=== PATIENT | female | born 1950 | race Caucasian/White ===

== ENCOUNTER → 2020-08-15 12:56 | Outpatient (BNVA) | payer MEDICARE, MEDICAID, SELFPAY | PROVIDERS: PCP Internal Medicine; Referring Provider Internal Medicine; Visit Provider Urology | DX: Z76.89 Persons encountering health services in other specified circumstances (principal) | CPT/HCPCS: 52310; 99212 ==

== ENCOUNTER 2020-08-18 12:52 | Outpatient (RCR) | payer MEDICARE, MEDICAID, SELFPAY | END 2021-03-24 13:35 | disposition home or self-care (01) | LOC: HO.WCC 12:52 | PROVIDERS: PCP Internal Medicine; Visit Provider Physician Assistant | DX: L89.154 Pressure ulcer of sacral region, stage 4 (principal); G35 Multiple sclerosis; N18.9 Chronic kidney disease, unspecified; G62.9 Polyneuropathy, unspecified; G82.20 Paraplegia, unspecified | CPT/HCPCS: 11042; 11043; 15271; 97597; 97605; 99212; Q4196 ==

== ENCOUNTER 2020-08-27 11:19 | Outpatient (REF) | payer MEDICARE, MEDICAID, SELFPAY | END 2020-08-27 11:20 | disposition home or self-care (01) | LOC: HO.HVNA 11:19 | PROVIDERS: Visit Provider Internal Medicine | DX: Z20.828 Contact with and (suspected) exposure to other viral communicable diseases (principal) | CPT/HCPCS: 87635 ==

== ENCOUNTER 2020-09-23 15:37 | Outpatient (REF) | payer MEDICARE, MEDICAID, SELFPAY | END 2020-09-23 15:38 | disposition home or self-care (01) | LOC: HO.LNP 15:37 | PROVIDERS: Visit Provider Internal Medicine | DX: Z20.828 Contact with and (suspected) exposure to other viral communicable diseases (principal) | CPT/HCPCS: U0003 ==

== ENCOUNTER 2020-10-01 11:31 | Outpatient (REF) | payer MEDICARE, MEDICAID, SELFPAY ==
--- NOTE | 2020-10-01 11:35 | US_ITS ---
EXAMINATION: US RETROPERITONEAL LIMITED (RENAL ONLY) CLINICAL INFORMATION: Calculus of kidney. COMPARISON: X-ray abdomen and CT abdomen and pelvis 07/09/2020. TECHNIQUE: Real-time imaging of the kidneys. Bladder not imaged. FINDINGS: RIGHT KIDNEY: 8.5 x 3.2 x 4.9 cm (SAG x AP x TRV). There is increased renal parenchymal echogenicity when compared with the liver. There is no focal parenchymal mass. No hydronephrosis. There are multiple nonobstructing calculi upper mid and lower pole, many with strong posterior acoustic shadowing, the largest measuring 1.2 cm upper pole and 1.0 cm lower pole. LEFT KIDNEY: 8.9 x 4.4 x 4.4 cm (SAG x AP x TRV). The renal parenchymal thickness is normal. The renal parenchymal echogenicity is upper limits of normal. No focal parenchymal mass. No hydronephrosis. There are multiple nonobstructing calculi, less in number than that seen on the right. The largest are upper pole 0.7 cm and 1.0 cm lower pole. US/US renal BI IMPRESSION: 1. Numerous bilateral nonobstructing calculi, greater in number on right. 2. No hydronephrosis or perinephric fluid. 3. Increased renal parenchymal echogenicity on right. No focal parenchymal lesion.
== END 2020-10-01 11:32 | disposition home or self-care (01) ==
LOC: HO.HMGCX 11:31
PROVIDERS: PCP Internal Medicine; Visit Provider Urology
DX: N20.0 Calculus of kidney (principal)
CPT/HCPCS: 76775

== ENCOUNTER 2020-10-08 12:08 | Outpatient (REF) | payer MEDICARE, MEDICAID, SELFPAY ==
[2020-10-08 12:16] LABS: MANUAL DIFF FLAG NO
[2020-10-08 12:20] LABS: Basophils Absolute Auto 0.1 X10*3/uL (0.0-0.2); Basophils Percent Auto 1.1 % (0-2); Eosinophils Absolute Auto 0.4 X10*3/uL (0.0-0.4); Hematocrit 31.8 % (37-47); Hemoglobin 9.8 g/dl (12.0-16.0); Imm Gran Abs Auto 0.01 X10*3/uL (0.00-0.03); Imm Gran Pct Auto 0.2 % (0.0-0.4); Lymphocytes Absolute Auto 0.8 X10*3/uL (1.2-4.9); Lymphocytes Percent Auto 18.6 % (20-40); Mean Corpuscular HGB Conc 30.8 g/dl (31.0-35.0); Mean Corpuscular Hemoglobin 30.7 pg (27.0-33.0); Mean Corpuscular Volume 99.7 fL (80-98); Monocytes Absolute Auto 0.5 X10*3/uL (0.1-1.2); Monocytes Percent Auto 11.5 % (2-11); Neutrophils Absolute Auto 2.6 X10*3/uL (2.0-8.3); Neutrophils Percent Auto 59.6 % (45-73); Platelet Count 475 X10*3/uL (160-400); Red Blood Count 3.19 X10*6/uL (4.20-5.50); Red Cell Distribution Width 14.4 % (11.0-16.0); White Blood Count 4.4 X10*3/uL (4.8-10.8)
[2020-10-08 13:16] LABS: Anion Gap 13 (12-20); Blood Urea Nitrogen 16 mg/dL (9-16); Calcium 8.7 mg/dL (8.4-10.2); Carbon Dioxide 28 mmol/L (22-29); Chloride 102 mmol/L (96-108); Estimated Glomerular Filt Rate > 60; Glucose Random 96 mg/dL (60-115); Potassium 4.4 mmol/l (3.3-5.1); Sodium 139 mmol/L (135-145)
== END 2020-10-08 12:09 | disposition home or self-care (01) ==
LOC: HO.HVNA 12:08
PROVIDERS: Visit Provider Physician Assistant
DX: L89.153 Pressure ulcer of sacral region, stage 3 (principal)
CPT/HCPCS: 36415; 80048; 85025

== ENCOUNTER 2020-10-12 12:41 | Outpatient (REF) | payer MEDICARE, MEDICAID, SELFPAY | END 2020-10-12 12:42 | disposition home or self-care (01) | LOC: HO.LNP 12:41 | PROVIDERS: Referring Provider Physician Assistant; Visit Provider Physician Assistant | DX: L89.153 Pressure ulcer of sacral region, stage 3 (principal) | CPT/HCPCS: 84134 ==

== ENCOUNTER → 2020-10-28 10:53 | Outpatient (BNVA) | payer MEDICARE, MEDICAID, SELFPAY | PROVIDERS: PCP Internal Medicine; Visit Provider Urology | DX: N31.9 Neuromuscular dysfunction of bladder, unspecified (principal); G35 Multiple sclerosis; Z87.442 Personal history of urinary calculi | CPT/HCPCS: Q3014 ==

== ENCOUNTER 2020-12-25 12:42 | Outpatient (REF) | payer MEDICARE, MEDICAID, SELFPAY ==
[2020-12-25 13:12] LABS: Glucose Urine UA NEG (NEG); Leukocyte Esterase Urine 2+ (NEG); Nitrite Urine POS (NEG); Specific Gravity - Urine 1.015 (1.005-1.025); Urine Blood 3+ (NEG); Urine Ketones NEG (NEG); Urine Protein 2+ MG/DL (NEG-TRACE)
[2020-12-25 13:16] LABS: Appearance Urine HAZY; Bacteria Urine 2+ /LPF; Color Urine PINK; RBC Urine TNTC /HPF (0); WBC Urine TNTC /HPF (0-4)
== END 2020-12-25 12:43 | disposition home or self-care (01) ==
LOC: HO.LNP 12:42
PROVIDERS: Visit Provider Urology
DX: R31.9 Hematuria, unspecified (principal)
CPT/HCPCS: 81001; 81003

== ENCOUNTER → 2021-01-14 15:25 | Outpatient (BNVA) | payer MEDICARE, MEDICAID, SELFPAY | PROVIDERS: PCP Internal Medicine; Visit Provider Urology | DX: Z13.89 Encounter for screening for other disorder (principal) | CPT/HCPCS: Q3014 ==

== ENCOUNTER → 2021-04-29 15:38 | Outpatient (BNVA) | payer MEDICARE, MEDICAID, SELFPAY | PROVIDERS: PCP Nurse Practitioner Family; Visit Provider Urology | DX: Z13.89 Encounter for screening for other disorder (principal) | CPT/HCPCS: Q3014 ==

== ENCOUNTER 2021-05-20 14:38 | Emergency (ER) | payer MEDICARE, MEDICAID, SELFPAY ==
[2021-05-20 14:50] VITALS: BP 127/60; PULSE 92; O2SAT 100
[2021-05-20 14:51] VITALS: BP 135/47; PULSE 94; RESP 18; TEMP 36.6; O2SAT 99; BMI 15.6
--- NOTE | 2021-05-20 15:36 | ED.FEMALEGU ---
HPI - Female Genitourinary General Chief complaint: Urogenital-Female <BONG Chandler- - Last Filed: 05/21/21 11:42> Stated complaint: UTI <BONG Chandler- - Last Filed: 05/21/21 11:42> Time Seen by Provider: 05/20/21 15:36 <BONG Chandler- - Last Filed: 05/21/21 11:42> Related Data Home medications: Home Medications Medication Instructions Recorded Confirmed cefuroxime axetil 250 mg tablet mg PO 08/15/20 12/17/20 cefuroxime axetil 500 mg tablet mg PO 08/15/20 12/17/20 cephalexin 250 mg capsule mg PO 08/15/20 12/17/20 chlorhexidine gluconate 0.12 % PO 08/15/20 12/17/20 mouthwash collagenase clostridium histo. 250 TOPICAL 08/15/20 12/17/20 unit/gram topical ointment ibuprofen 600 mg tablet mg PO 08/15/20 12/17/20 levofloxacin 500 mg tablet mg PO 08/15/20 12/17/20 modafinil 200 mg tablet mg PO 08/15/20 12/17/20 mupirocin 2 % topical ointment TOPICAL 08/15/20 12/17/20 hydrocortisone 2.5 % topical cream TOPICAL 01/14/21 with perineal applicator Previous Rx's Medication Instructions Recorded omeprazole magnesium 20 mg 20 mg PO DAILY 90 Days #90 tab 08/04/20 tablet,delayed release ondansetron 4 mg disintegrating 4 mg PO Q8H #90 tab 08/19/20 tablet miscellaneous medical supply 1 ea MISCELLANEOUS DAILY #1 ea 11/13/20 furosemide 20 mg tablet 20 mg PO DAILY #90 tab 11/21/20 miscellaneous medical supply 1 ea MISCELLANEOUS DAILY #1 ea 12/09/20 cephalexin 500 mg capsule 500 mg PO BID 5 Days #10 cap 12/29/20 hydrocortisone 2.5 % topical cream 1 appl AZ BID-QID PRN #30 g 01/16/21 with perineal applicator pyridoxine (vitamin B6) 100 mg 100 mg PO DAILY 90 Days #90 tab 01/16/21 tablet hydroxyzine pamoate 25 mg capsule 25 mg PO QID PRN #60 cap 03/04/21 tramadol 50 mg tablet 50 mg PO Q8H PRN #60 tab 03/24/21 methenamine hippurate 1 gram tablet 1 g PO DAILY 90 Days #90 tab 04/29/21 oxybutynin chloride 5 mg 5 mg PO DAILY 30 Days #30 tab 05/07/21 tablet,extended release 24 hr cephalexin 500 mg PO BID 10 Days #20 cap 05/20/21 nitrofurantoin macrocrystal 50 mg 50 mg PO QID #20 cap 05/20/21 capsule <BONG Chandler-BC - Last Filed: 05/21/21 11:42> Allergies/Adverse reactions: Allergies Allergy/AdvReac Type Severity Reaction Status Date / Time nystatin [NYSTATIN] Allergy Severe SWOLLEN Verified 01/14/21 10:50 MOUTH Penicillins [PENICILLINS] Allergy Severe SWELLING,HI Verified 01/14/21 10:50 VES ciprofloxacin [CIPROFLOXACIN] Allergy Intermediate HIVES Verified 01/14/21 10:50 clindamycin [CLINDAMYCIN] Allergy Intermediate ITCHYNESS,D Verified 01/14/21 10:50 IARRHEA,HIV ES levofloxacin [From Levaquin] Allergy Intermediate HIVES.ITCHI Verified 01/14/21 10:50 NESS,DIARRH EA Sulfa (Sulfonamide Allergy Intermediate HIVES Verified 01/14/21 10:50 Antibiotics) [SULFA(SULFONAMIDE ANTIBIOTICS)] <BONG Chandler-BC - Last Filed: 05/21/21 11:42> Review of Systems Review of Systems: history of chronic Cortes catheter, was told by PCP that she has urinary tract infection. <BONG Chandler-BC - Last Filed: 05/21/21 11:42> Constitutional: Constitutional: Denies weight gain and Denies weight loss <BONG Chandler-BC - Last Filed: 05/21/21 11:42> Cardiovascular: Cardiovascular: Reports no additional cardiovascular complaints <BONG Chandler-BC - Last Filed: 05/21/21 11:42> Respiratory: Respiratory: Reports no additional respiratory complaints <BONG Chandler-BC - Last Filed: 05/21/21 11:42> Gastrointestinal: Gastrointestinal: Denies abdominal pain, Denies belching, Denies melena, Denies bloating, Denies change in bowel habits, Denies dyspepsia, Denies heartburn, Denies nausea and Denies vomiting <Elizabeth Ellis BONG Bay-BC - Last Filed: 05/21/21 11:42> Neurologic: Reports system reviewed and no additional complaints, except as documented <Elizabeth Ellis MARISOL BayP-BC - Last Filed: 05/21/21 11:42> Psychiatric: Psychiatric: Reports no additional psychiatric complaints <Elizabeth Ellis Phu QUALITY CONTROL TECHNICIAN-BC - Last Filed: 05/21/21 11:42> [facility] Past Medical History Medical History: Medical History (Updated 05/20/21 @ 17:36 by JALEN Chandler) Colon cancer Kidney stones Multiple sclerosis <Elizabeth Caleb Phu QUALITY CONTROL TECHNICIAN-BC - Last Filed: 05/21/21 11:42> Surgical History: Surgical History H/O rectal polypectomy <BONG Chandler-BC - Last Filed: 05/21/21 11:42> Family History Family History: Family History Father No problems noted. Mother Kidney disease Maternal Aunt Breast cancer <ElizabethBONG Akers-BC - Last Filed: 05/21/21 11:42> Social History Social History: Social History Alcohol intake: never Advance Directives: No Advance Directives Information Provided: No <Elizabeth Caleb Leeangelita QUALITY CONTROL TECHNICIAN-BC - Last Filed: 05/21/21 11:42> Physical Exam Vital Signs: Vital Signs: Last Vital Signs Temp 98.2 F 05/20/21 17:00 Pulse 85 05/20/21 17:00 Resp 14 05/20/21 17:00 BP 125/42 L 05/20/21 17:00 Pulse Ox 100 05/20/21 17:00 Body Mass Index 15.6 <ElizabethBONG Akers-BC - Last Filed: 05/21/21 11:42> Vital Signs: Last Vital Signs Temp 98.2 F 05/20/21 17:00 Pulse 85 05/20/21 17:00 Resp 14 05/20/21 17:00 BP 125/42 L 05/20/21 17:00 Pulse Ox 100 05/20/21 17:00 Body Mass Index 15.6 <Eric Olsen MD - Last Filed: 05/20/21 16:50> Const: General: healthy appearing, no acute distress and well developed <BONG Chandler-BC - Last Filed: 05/21/21 11:42> Nutritional Appearance: well nourished <BONG Chandler-BC - Last Filed: 05/21/21 11:42> Orientation/consciousness: patient oriented x3 <BONG Chandler-BC - Last Filed: 05/21/21 11:42> Neck: Neck: Yes normal visual inspection, Yes full ROM and Yes trachea midline <BONG Chandler-EDER - Last Filed: 05/21/21 11:42> Thyroid: Thyroid normal <MARISOL ChandlerP-BC - Last Filed: 05/21/21 11:42> Resp: Auscultation: clear to auscultation bilaterally <BONG Chandler-EDER - Last Filed: 05/21/21 11:42> Cardio: Rate: regular rate <BONG Chandler-EDER - Last Filed: 05/21/21 11:42> Rhythm: regular rhythm <MARISOL ChandlerP- - Last Filed: 05/21/21 11:42> GI: Inspection: Yes normal to inspection and No distended <BONG Chandler-BC - Last Filed: 05/21/21 11:42> Palpation (GI): No hepatosplenomegaly present <BONG Chandler-BC - Last Filed: 05/21/21 11:42> Auscultation: normal bowel sounds <BONG Chandler-BC - Last Filed: 05/21/21 11:42> : General: Yes bladder normal to palpation and Yes no CVA tenderness <JALEN Chandler - Last Filed: 05/21/21 11:42> Bimanual exam- vagina & uterus: bladder normal to palpation <JALEN Chandler - Last Filed: 05/21/21 11:42> Back/Spine/Pelvis: Back: no CVA tenderness <JALEN Chandler - Last Filed: 05/21/21 11:42> Skin: General skin exam: elasticity normal, turgor normal and dry skin <JALEN Chandler - Last Filed: 05/21/21 11:42> Neuro: General: patient oriented x3 <JALEN Chandler - Last Filed: 05/21/21 11:42> Course Course Course Narrative: 71-year-old female with a past medical history of neurogenic bladder disorder, history of renal stones, multiple sclerosis is here today for complaining of lower pelvic pain that started on Tuesday. Patient reports that her pain is better today, however she was told by PCP that she had urinary tract infection. Subjective low-grade fevers per patient and her . Denies chills. Mucous discharge in Cortes catheter. Patient has a chronic Cortes catheter as she has history of MS. We will send the urine for urinalysis and treat her empirically. <JALEN Chandler - Last Filed: 05/21/21 11:42> Reevaluation(s) Reevaluation #1: Urinalysis back and patient's urine is positive for nitrite, 3+ leukocyte esterase, WBC 15-29. I will order cephalexin and send her home to follow-up with urologist. Patient is afebrile. Both patient and her are agreeable to plan of care and verbalizes understanding of instructions. They were given the opportunity to ask questions and all questions answered. <JALEN Chandler - Last Filed: 05/21/21 11:42> I have discussed the case and management with the MIRLANDE <Eric Olsen MD - Last Filed: 05/20/21 16:50> Time: 16:49 <Eric Olsen MD - Last Filed: 05/20/21 16:50> MDM - Female Genitourinary Lab Data Result diagrams: : 05/20/21 15:49 <BONG Chandler- - Last Filed: 05/21/21 11:42> Labs: Lab Results 05/20/21 05/20/21 Range/Units 15:49 15:54 WBC 16.8 H (4.8-10.8) X10*3/uL RBC 2.90 L (4.20-5.50) X10*6/uL Hgb 8.9 L (12.0-16.0) g/dl Hct 28.2 L (37-47) % MCV 97.2 (80-98) fL MCH 30.7 (27.0-33.0) pg MCHC 31.6 (31.0-35.0) g/dl RDW 13.8 (11.0-16.0) % Plt Count 337 D (160-400) X10*3/uL MPV 8.6 L (9.4-12.3) fL Immature Gran % (Auto) 0.8 H (0.0-0.4) % Neut % (Auto) 90.7 H (45-73) % Lymph % (Auto) 2.3 L (20-40) % [place] % (Auto) 5.5 (2-11) % Eos % (Auto) 0.5 (0-4) % Baso % (Auto) 0.2 (0-2) % Lymph # (Auto) 0.4 L (1.2-4.9) X10*3/uL [place] # (Auto) 0.9 (0.1-1.2) X10*3/uL Eos # (Auto) 0.1 (0.0-0.4) X10*3/uL Baso # (Auto) 0.0 (0.0-0.2) X10*3/uL Abs Immat Gran (auto) 0.13 H (0.00-0.03) X10*3/uL Absolute Neuts (auto) 15.3 H (2.0-8.3) X10*3/uL Absolute Nucleated RBC 0.000 (0.0-0.012) X10*3/uL Nucleated RBC % (auto) 0.0 (0.0-0.2) /100WBC Smear Tech's Comments VERIFIED Urine Color YELLOW Urine Appearance HAZY Urine pH 7.0 (5.0-8.0) Ur Specific [place] 1.015 (1.005-1.025) Urine Protein 2+ H (NEG-TRACE) MG/DL Urine Glucose (UA) NEG (NEG) MG/DL Urine Ketones NEG (NEG) MG/DL Urine Blood 2+ H (NEG) Urine Nitrite POS H (NEG) Ur Leukocyte Esterase 3+ H (NEG) Urine RBC 10-14 H (0) /HPF Urine WBC 15-29 H (0-4) /HPF Ur Squamous Epith Cells TRACE /LPF Amorphous Sediment 2+ /LPF Urine Bacteria 1+ /LPF <Elizabeth Bay, [facility]- - Last Filed: 05/21/21 11:42> Lab Results 05/20/21 05/20/21 Range/Units 15:49 15:54 WBC 16.8 H (4.8-10.8) X10*3/uL RBC 2.90 L (4.20-5.50) X10*6/uL Hgb 8.9 L (12.0-16.0) g/dl Hct 28.2 L (37-47) % MCV 97.2 (80-98) fL MCH 30.7 (27.0-33.0) pg MCHC 31.6 (31.0-35.0) g/dl RDW 13.8 (11.0-16.0) % Plt Count 337 D (160-400) X10*3/uL MPV 8.6 L (9.4-12.3) fL Immature Gran % (Auto) 0.8 H (0.0-0.4) % Neut % (Auto) 90.7 H (45-73) % Lymph % (Auto) 2.3 L (20-40) % Carroll % (Auto) 5.5 (2-11) % Eos % (Auto) 0.5 (0-4) % Baso % (Auto) 0.2 (0-2) % Lymph # (Auto) 0.4 L (1.2-4.9) X10*3/uL [place] # (Auto) 0.9 (0.1-1.2) X10*3/uL Eos # (Auto) 0.1 (0.0-0.4) X10*3/uL Baso # (Auto) 0.0 (0.0-0.2) X10*3/uL Abs Immat Gran (auto) 0.13 H (0.00-0.03) X10*3/uL Absolute Neuts (auto) 15.3 H (2.0-8.3) X10*3/uL Absolute Nucleated RBC 0.000 (0.0-0.012) X10*3/uL Nucleated RBC % (auto) 0.0 (0.0-0.2) /100WBC Smear Tech's Comments VERIFIED Urine Color YELLOW Urine Appearance HAZY Urine pH 7.0 (5.0-8.0) Ur Specific [place] 1.015 (1.005-1.025) Urine Protein 2+ H (NEG-TRACE) MG/DL Urine Glucose (UA) NEG (NEG) MG/DL Urine Ketones NEG (NEG) MG/DL Urine Blood 2+ H (NEG) Urine Nitrite POS H (NEG) Ur Leukocyte Esterase 3+ H (NEG) Urine RBC 10-14 H (0) /HPF Urine WBC 15-29 H (0-4) /HPF Ur Squamous Epith Cells TRACE /LPF Amorphous Sediment 2+ /LPF Urine Bacteria 1+ /LPF <Eric Olsen MD - Last Filed: 05/20/21 16:50> Discharge Plan Discharge Clinical Impression: Recurrent UTI <JALEN Chandler - Last Filed: 05/21/21 11:42> Patient Disposition: Home, Self-Care <JALEN Chandler - Last Filed: 05/21/21 11:42> Instructions: Catheter-associated Urinary Tract Infection (ED) <JALEN Chandler - Last Filed: 05/21/21 11:42> Additional Instructions: you were seen here today for urinary tract infection. You were given 1st dose of antibiotic. You will get 10 days worth of antibiotics please finish all of them. If you continue to have some fevers and abdominal discomfort you may return to ED. Please follow-up with your primary care provider in 2-3 days as well as with your urologist. You may return to emergency department if you experience any additional concerning symptoms. <BONG Chandler-BC - Last Filed: 05/21/21 11:42> Prescriptions: New cephalexin 500 mg capsule 500 mg PO BID 10 Days Qty: 20 RF: 0 No Action omeprazole magnesium [Prilosec OTC] 20 mg tablet,delayed release (DR/EC) 20 mg PO DAILY 90 Days Qty: 90 RF: 4 ondansetron 4 mg tablet,disintegrating 4 mg PO Q8H Qty: 90 RF: 8 miscellaneous medical supply Misc 1 ea miscellaneous DAILY Qty: 1 RF: 0 furosemide 20 mg tablet 20 mg PO DAILY Qty: 90 RF: 8 miscellaneous medical supply Misc 1 ea miscellaneous DAILY Qty: 1 RF: 0 cephalexin 500 mg capsule 500 mg PO BID 5 Days Qty: 10 RF: 0 pyridoxine (vitamin B6) 100 mg tablet 100 mg PO DAILY 90 Days Qty: 90 RF: 2 hydrocortisone [Anusol-HC] 2.5 % cream with perineal applicator 1 appl AZ BID-QID PRN (Reason: hemorrhoids) Qty: 30 RF: 8 hydroxyzine pamoate 25 mg capsule 25 mg PO QID PRN (Reason: itching) Qty: 60 RF: 8 tramadol 50 mg tablet 50 mg PO Q8H PRN (Reason: pain) Qty: 60 RF: 5 oxybutynin chloride 5 mg tablet extended release 24hr 5 mg PO DAILY 30 Days Qty: 30 RF: 0 nitrofurantoin macrocrystal 50 mg capsule 50 mg PO QID Qty: 20 RF: 0 methenamine hippurate 1 gram tablet 1 g PO DAILY 90 Days Qty: 90 RF: 1 ibuprofen 600 mg tablet PO RF: 0 Santyl 250 unit/gram ointment topical RF: 0 mupirocin 2 % ointment topical RF: 0 chlorhexidine gluconate 0.12 % mouthwash PO RF: 0 cefuroxime axetil 500 mg tablet PO RF: 0 modafinil 200 mg tablet PO RF: 0 cefuroxime axetil 250 mg tablet PO RF: 0 cephalexin 250 mg capsule PO RF: 0 levofloxacin 500 mg tablet PO RF: 0 <BONG Chandler- - Last Filed: 05/21/21 11:42> Interventions: ED Discharge Assessment Last Done: 05/20/21 17:44 <JALEN Chandler - Last Filed: 05/21/21 11:42> Discharge Date/Time: 05/20/21 17:45 <JALEN Chandler - Last Filed: 05/21/21 11:42>
[2021-05-20] MEDS: 0.9 % Sodium Chloride 500 ML IV (15:55)
[2021-05-20 16:00] LABS: Basophils Percent Auto 0.2 % (0-2); Eosinophils Absolute Auto 0.1 X10*3/uL (0.0-0.4); Eosinophils Percent Auto 0.5 % (0-4); Hematocrit 28.2 % (37-47); Hemoglobin 8.9 g/dl (12.0-16.0); Imm Gran Abs Auto 0.13 X10*3/uL (0.00-0.03); Imm Gran Pct Auto 0.8 % (0.0-0.4); Lymphocytes Absolute Auto 0.4 X10*3/uL (1.2-4.9); Lymphocytes Percent Auto 2.3 % (20-40); MANUAL DIFF FLAG SCAN; Mean Corpuscular HGB Conc 31.6 g/dl (31.0-35.0); Mean Corpuscular Hemoglobin 30.7 pg (27.0-33.0); Mean Corpuscular Volume 97.2 fL (80-98); Mean Platelet Volume 8.6 fL (9.4-12.3); Monocytes Absolute Auto 0.9 X10*3/uL (0.1-1.2); Monocytes Percent Auto 5.5 % (2-11); Neutrophils Absolute Auto 15.3 X10*3/uL (2.0-8.3); Neutrophils Percent Auto 90.7 % (45-73); Platelet Count 337 X10*3/uL (160-400); Red Cell Distribution Width 13.8 % (11.0-16.0); SCAN SMEAR FLAG 1; White Blood Count 16.8 X10*3/uL (4.8-10.8)
[2021-05-20 16:08] LABS: Glucose Urine UA NEG (NEG); Leukocyte Esterase Urine 3+ (NEG); Nitrite Urine POS (NEG); Specific Gravity - Urine 1.015 (1.005-1.025); UACC Culture Trigger YES; Urine Blood 2+ (NEG); Urine Ketones NEG (NEG); Urine Protein 2+ MG/DL (NEG-TRACE)
[2021-05-20 16:27] LABS: Appearance Urine HAZY; Color Urine YELLOW
[2021-05-20 16:28] LABS: Amorphous Sediment Urine 2+ /LPF; Bacteria Urine 1+ /LPF; Squamous Epithelial Cell Urine TRACE /LPF
[2021-05-20 16:32] LABS: SLIDE REVIEW VERIFIED
[2021-05-20 17:00] VITALS: BP 125/42; PULSE 85; RESP 14; TEMP 36.8; O2SAT 100
[2021-05-20] MEDS: cephALEXin 500 MG CAPSULE PO (17:06)
== END 2021-05-20 17:45 | disposition home or self-care (01) ==
PROVIDERS: Nurse Practitioner Family; Emergency Provider Emergency Medicine; PCP Internal Medicine
DX: N39.0 Urinary tract infection, site not specified (principal); G35 Multiple sclerosis; Z87.442 Personal history of urinary calculi; Z79.899 Other long term (current) drug therapy
CPT/HCPCS: 36415; 81001; 81003; 85025; 87086; 96360; 99284

== ENCOUNTER 2021-06-23 15:31 | Outpatient (REF) | payer MEDICARE, MEDICAID, SELFPAY ==
[2021-06-23 16:55] LABS: Glucose Urine UA NEG (NEG); Leukocyte Esterase Urine 3+ (NEG); Nitrite Urine POS (NEG); Urine Blood 1+ (NEG); Urine Ketones NEG (NEG); Urine Protein 1+ MG/DL (NEG-TRACE)
[2021-06-23 16:57] LABS: Appearance Urine HAZY; Color Urine YELLOW
[2021-06-23 17:02] LABS: Bacteria Urine 4+ /LPF; Squamous Epithelial Cell Urine 2+ /LPF; WBC Urine 50-75 /HPF (0-4)
== END 2021-06-23 15:32 | disposition home or self-care (01) ==
LOC: HO.HMGCLNP 15:31
PROVIDERS: Visit Provider Internal Medicine
DX: N39.0 Urinary tract infection, site not specified (principal)
CPT/HCPCS: 81001; 87086

== ENCOUNTER 2021-09-04 11:17 | Outpatient (REF) | payer MEDICARE, MEDICAID, SELFPAY ==
--- NOTE | ~2021-09-04 | US_ITS ---
EXAMINATION: US RETROPERITONEAL LIMITED (RENAL ONLY) CLINICAL INFORMATION: Calculus of kidney. COMPARISON: Renal ultrasound 10/01/2020. X-ray abdomen and CT abdomen and pelvis 07/09/2020. TECHNIQUE: Real-time imaging of the kidneys. FINDINGS: RIGHT KIDNEY: 8.4 x 3.7 x 4.4 cm (SAG x AP x TRV). The kidney is normal in size and contour. There is renal cortical thinning. Renal cortical echogenicity may be increased. There are multiple stones, the largest measure 1.3 x 0.7 x 1.9 cm in the lower pole and 1.3 x 0.6 x 0.7 cm in the upper pole. No focal parenchymal lesions or hydronephrosis. LEFT KIDNEY: 8.8 x 4.0 x 5.3 cm (SAG x AP x TRV). The kidney is normal in size, contour, and echogenicity. There is left renal cortical thinning. There are multiple left renal stones, largest a staghorn stone lower pole measuring 2 x 1 x 1.7 cm. There is mild left calyceal dilatation.. No focal parenchymal lesions. ADDITIONAL FINDINGS: There is a gallstone in the gallbladder. There is a 2.2 x 2 x 2.2 cm complex cyst in the spleen with septation. US/US renal BI IMPRESSION: Multiple bilateral renal stones including large staghorn stone in the lower pole of the left kidney. Both kidneys are small with cortical thinning and increased renal cortical echogenicity. There is mild left calyceal dilatation.
== END 2021-09-04 11:18 | disposition home or self-care (01) ==
LOC: HO.HMGCX 11:17
PROVIDERS: PCP Internal Medicine; Visit Provider Urology
DX: N20.0 Calculus of kidney (principal)
CPT/HCPCS: 76775

== ENCOUNTER → 2021-09-22 14:54 | Outpatient (BNVA) | payer MEDICARE, MEDICAID, SELFPAY | PROVIDERS: PCP Internal Medicine | DX: Z13.89 Encounter for screening for other disorder (principal) | CPT/HCPCS: Q3014 ==

== ENCOUNTER 2021-11-02 18:43 | Inpatient (IN) | payer MEDICARE, MEDICAID, SELFPAY ==
--- NOTE | 2021-10-28 15:17 | P.CONAN_ITS ---
Documented by User: Liza Jose NP 10/28/21 15:17 HPI - Anesthesia Eval Consult details Narrative: 71yo F for Left Cystoscopy, Ureteroroscopy, Retro, Laser with possible stent PMFSH Active Problems Active Problems: All Active Problems (Updated 05/20/21 @ 17:36 by BONG Chandler-) Neurogenic urinary bladder disorder (Acute) Bilateral renal stones (Acute) Generalized pruritus (Acute) Bilateral nephrolithiasis (Acute) Recurrent UTI (Acute) Multiple sclerosis (Acute) Past Medical History Medical History Colon cancer Kidney stones Multiple sclerosis Family History Family History Father No problems noted. Mother Kidney disease Maternal Aunt Breast cancer Surgical History Surgical History H/O rectal polypectomy Social History Social History Alcohol intake: never Patient Tobacco Use Status: Never used Tobacco Second Hand Smoke Exposure: No Use of substances other than those prescribed or required for medical reasons: No Are you DNR?: No Advance Directives: No Advance Directives Information Provided: Yes Advance Directives on File: No Meds Allergies Allergy/AdvReac Type Severity Reaction Status Date / Time nystatin [NYSTATIN] Allergy Severe SWOLLEN Verified 09/22/21 14:55 MOUTH Penicillins [PENICILLINS] Allergy Severe SWELLING,HI Verified 09/22/21 14:55 VES ciprofloxacin [CIPROFLOXACIN] Allergy Intermediate HIVES Verified 09/22/21 14:55 clindamycin [CLINDAMYCIN] Allergy Intermediate ITCHYNESS,D Verified 09/22/21 14:55 IARRHEA,HIV ES levofloxacin [From Levaquin] Allergy Intermediate HIVES.ITCHI Verified 09/22/21 14:55 NESS,DIARRH EA Sulfa (Sulfonamide Allergy Intermediate HIVES Verified 09/22/21 14:55 Antibiotics) [SULFA(SULFONAMIDE ANTIBIOTICS)] Home Medications Medication Instructions Recorded Confirmed Last Taken Type chlorhexidine gluconate 0.12 % PO 08/15/20 05/26/21 Unknown History mouthwash collagenase clostridium histo. 250 TOPICAL 08/15/20 05/26/21 Unknown History unit/gram topical ointment ibuprofen 600 mg tablet mg PO 08/15/20 05/26/21 Unknown History levofloxacin 500 mg tablet mg PO 08/15/20 05/26/21 Unknown History modafinil 200 mg tablet mg PO 08/15/20 05/26/21 Unknown History mupirocin 2 % topical ointment TOPICAL 08/15/20 05/26/21 Unknown History hydrocortisone 2.5 % topical cream TOPICAL 01/14/21 05/26/21 Unknown History with perineal applicator nitrofurantoin 100 mg PO BID cap 09/08/21 Unknown History monohydrate/macrocrystals 100 mg capsule (Macrobid) Exam Exam Date and Time: October 28, 2021 151 Assessment and Plan Assessment Anesthesia Assessment: Chart Reviewed Documented by User: Cody Oseguera 11/02/21 08:53 HPI - Anesthesia Eval Consult details Narrative: 71yo F for Left Cystoscopy, Ureteroroscopy, Retro, Laser with possible stent left foot swelling at baseline left side stronger than right , bilateral weakness . [facility], [facility] Past Medical History Medical History Colon cancer Kidney stones Multiple sclerosis Functional capacity: wheelchair bound Family History Family History Father No problems noted. Mother Kidney disease Maternal Aunt Breast cancer Family history of problems with anesthesia: No Surgical History Surgical History H/O rectal polypectomy History of Problems with Anesthesia: No Social History Social History Alcohol intake: never Patient Tobacco Use Status: Never used Tobacco Second Hand Smoke Exposure: No Use of substances other than those prescribed or required for medical reasons: No Are you DNR?: No Advance Directives: No Advance Directives Information Provided: Yes Advance Directives on File: No Meds Allergies Allergy/AdvReac Type Severity Reaction Status Date / Time nystatin [NYSTATIN] Allergy Severe SWOLLEN Verified 09/22/21 14:55 MOUTH Penicillins [PENICILLINS] Allergy Severe SWELLING,HI Verified 09/22/21 14:55 VES ciprofloxacin [CIPROFLOXACIN] Allergy Intermediate HIVES Verified 09/22/21 14:55 clindamycin [CLINDAMYCIN] Allergy Intermediate ITCHYNESS,D Verified 09/22/21 14:55 IARRHEA,HIV ES levofloxacin [From Levaquin] Allergy Intermediate HIVES.ITCHI Verified 09/22/21 14:55 NESS,DIARRH EA Sulfa (Sulfonamide Allergy Intermediate HIVES Verified 09/22/21 14:55 Antibiotics) [SULFA(SULFONAMIDE ANTIBIOTICS)] Home Medications Medication Instructions Recorded Confirmed Last Taken Type chlorhexidine gluconate 0.12 % PO 08/15/20 05/26/21 Unknown History mouthwash collagenase clostridium histo. 250 TOPICAL 08/15/20 05/26/21 Unknown History unit/gram topical ointment ibuprofen 600 mg tablet mg PO 08/15/20 05/26/21 Unknown History levofloxacin 500 mg tablet mg PO 08/15/20 05/26/21 Unknown History modafinil 200 mg tablet mg PO 08/15/20 05/26/21 Unknown History mupirocin 2 % topical ointment TOPICAL 08/15/20 05/26/21 Unknown History hydrocortisone 2.5 % topical cream TOPICAL 01/14/21 05/26/21 Unknown History with perineal applicator nitrofurantoin 100 mg PO BID cap 09/08/21 Unknown History monohydrate/macrocrystals 100 mg capsule (Macrobid) Exam Airway Mallampati Class: I Neck ROM: Full Denture: Upper Loose/Missing/Broken Teeth: Yes Heart: rrr Lungs: bl breath sounds Assessment and Plan Final Anesthetic Review Family History of Problems with Anesthesia: No History of Problems with Anesthesia: No NPO: Yes ASA Class: III Final Preanesthetic Review: Anenestor Risks/Benef Reviewed Patient Risk: Intermediate Procedure Risk: Intermediate Anesthetic Plan Anesthetic Plan: GA Disposition: Standard PACU
[2021-11-02] VITALS (29 sets, daily range): BP systolic 108–160; BP diastolic 38–87; PULSE 57–148; RESP 16–20; TEMP 36.1–37.9; O2SAT 99–100; BMI 17.2; BMI 17.6
--- NOTE | ~2021-11-02 | US_ITS ---
EXAMINATION: ULTRASOUND-GUIDED THORACENTESIS CLINICAL INFORMATION: Moderate left pleural effusion. COMPARISON: None TECHNIQUE: Following explaining ultrasound-guided left thoracentesis procedure, benefits and risk, a written consent was obtained from the patient. Patient was placed sitting upright on ultrasound stretcher. Preliminary ultrasound was obtained through bilateral posterior chest. There is no fluid visualized in the right posterior chest with drainage. Moderate left pleural effusion was noted. An optimal site was selected along the left posterior scapular line and marked on approximately at T10 interspace. The marked site was cleaned and draped in usual sterile manner. 1% lidocaine was injected at the puncture site. Through a small skin incision a 5 [employer] catheter was advanced into the peritoneal space. After observing fluid return, stylet was withdrawn and catheter connected to vacuum bottle. After obtaining all fluid and observing normal fluid return, catheter was withdrawn and complete hemostasis achieved at puncture site. Sterile dressing was applied postprocedure. Chest x-ray was obtained portably. FINDINGS: On preliminary ultrasound imaging there is no drainable fluid in the right pleural space. There is moderate left pleural effusion noted. Approximately 400 mL of light yellowish fluid was drained from the left pleural space. Part of this fluid was sent to lab as per physician's request. Chest x-ray was obtained subsequently. US/US drain thoracentesis IMPRESSION: Successful ultrasound-guided left thoracentesis performed. There is no drainable pleural effusion seen on the right side.
--- NOTE | ~2021-11-02 | IR_ITS ---
PROCEDURE: IR INSERTION OF TUNNEL CATHETER CLINICAL INFORMATION: Thompson for long-term IV antibiotics. COMPARISON: None TECHNIQUE: Following explaining exchange of left subclavian triple-lumen catheter for a single lumen Thompson catheter, procedure, benefits and risk were explained and a written consent was obtained. Patient was placed supine on angiography table and the existing left triple-lumen site was cleaned in usual sterile manner. 1% lidocaine was inserted approximately 1 gauze length inferior and lateral to the left subclavian incision site along the anterior chest wall. 1% lidocaine with epinephrine was injected along the tract from the neck incision to marked skin incision place. Through a small skin incision a 5 [place] single-lumen Thompson catheter attached to a tunneler was bluntly advanced from the chest wall incision to the neck wall incision and the tunneled catheter was pulled through the neck wall incision making sure the cuff was placed subcutaneous. The existent triple-lumen catheter sutures were removed and a 0.035 J-wire was advanced through one of the triple-lumen ports and placed in IVC under fluoroscopy guidance. The triple lumen catheter was removed and a 5 [place] peel-away dilator was placed into the SVC. The PICC line catheter was sized and cut to the measurements. The blunt end of the Thompson catheter was then advanced through the peel-away sheath into the SVC. The peel-away sheath was gently removed as the catheter was held in position under fluoroscopy. After removing the entire peel-away sheath a single image was obtained for documenting catheter position and the catheter tip in the distal SVC. The single lumen catheter was flushed with 5000 units of heparin. Sterile dressing applied postprocedure at the neck as well as the chest wall incision site. Conscious sedation was utilized during the exam. Patient tolerated procedure extremely well. All elements of maximal sterile barrier technique followed including use of cap, mask, sterile gown, sterile gloves, a sterile full body drape and hand hygiene. Also followed skin preparation with 2% chlorhexidine for cutaneous antisepsis, and sterile ultrasound preparation with sterile gel and probe cover when applicable. Sedation time 30 minutes. FINDINGS: The existent triple-lumen access port was flushed with saline. Subsequently is 0.035 J-wire was inserted through the port and the catheter exchanged for a single lumen Thompson catheter through a peel-away sheath. The Thompson catheter measures 33 cm long. IR/IR cvc insert central tunnel IMPRESSION: Successful fluoroscopy-guided exchange and placement of left triple-lumen catheter with a left tunneled single-lumen Thompson catheter for long-term IV antibiotics. Fluoroscopy time: 0.9 minutes. Dose area product: 66 cGycm2
--- NOTE | ~2021-11-02 | XR_ITS ---
EXAMINATION: XR CHEST CLINICAL INFORMATION: CVC placement COMPARISON: Chest 11/04/2021 TECHNIQUE: Frontal view of the chest was obtained. FINDINGS: The lungs are expanded with loculated effusion right lateral chest wall and along the right minor fissure. There is bibasilar patchy opacity likely atelectasis. The upper lungs are clear. There is a left central venous catheter its tip in the proximal SVC. No gross bony abnormality seen. XR/XR chest 1V IMPRESSION: Bibasilar patchy opacity likely atelectasis. Loculated right pleural effusion along the right lateral chest wall and minor fissure, is stable. Previously visualized tubular artifact along the right upper chest on the previous exam is not seen at this time.
--- NOTE | ~2021-11-02 | XR_ITS ---
EXAMINATION: XR CHEST CLINICAL INFORMATION: Fever. COMPARISON: Chest radiograph dated from 07/09/2020. TECHNIQUE: AP view of the chest was obtained. FINDINGS: Stable appearance of the cardiomediastinal silhouette. Several EKG wires overlie the patient. No focal airspace opacities or pneumothorax. Unchanged blunting of the costophrenic angles which may be due to pleural thickening or trace pleural effusions. No acute osseous abnormalities. XR/XR chest 1V IMPRESSION: There is blunting of the costophrenic ankles which may be due to pleural thickening or trace pleural effusions. Otherwise, clear lungs.
--- NOTE | ~2021-11-02 | CT_ITS ---
EXAMINATION: CT ABDOMEN AND PELVIS WITHOUT CONTRAST CLINICAL INFORMATION: Sepsis. 10 abdomen post urologic procedure. COMPARISON: Previous CT of the abdomen and pelvis July 2020 and renal ultrasound most recent August 2021 and intraoperative fluoroscopy images from urologic procedure from yesterday TECHNIQUE: Multidetector volumetric imaging was performed from the superior aspect of the liver through the pubic symphysis. Sagittal and coronal reformatted images were obtained on the technologist's workstation. This CT examination was performed using dose optimization techniques as appropriate, variously including the following: *Automated exposure control *Adjustment of mA and/or kV according to patient size (this includes techniques or standardized protocols for targeted exams where dose is matched to indication/reason for exam; i.e. extremities or head) *Use of iterative reconstruction technique DLP: 430 mGy-cm FINDINGS: LUNG BASES: There is a small pericardial effusion. This is similar to July 2020 exam. There are small bilateral pleural effusions and atelectasis at the lung bases, left greater than right. LIVER, GALLBLADDER, AND BILIARY TREE: The liver is normal in size, shape, and attenuation. No focal hepatic lesion. The gallbladder is upper normal in size. There is a gallstone in the gallbladder. There is mild intrahepatic biliary duct dilatation. The common bile duct does not appear dilated. These findings are similar to 2019 exam. PANCREAS: There is a small calcification in the head of the pancreas. This does not appear to be in the common bile duct. SPLEEN: There is peripheral linear capsular calcification. There is a 3 cm low-attenuation lesion in the inferior spleen that is stable. ADRENAL GLANDS: Unremarkable. KIDNEYS AND URETERS: There are multiple bilateral renal stones. Largest right stone conforms to upper pole calyces measuring approximately 1.5 cm. There are small stones or stone fragments in the left renal pelvis. There are small stones in the lower pole, largest measuring 3 mm. There is a left internal ureteral stent. Proximal pigtail is in the upper pole calyx. There is no hydronephrosis. There is no perinephric collection or hematoma. There is a small amount of air seen in the left renal collecting system. Left internal ureteral stent in satisfactory position. No left ureteral stone is seen. BLADDER: The bladder is decompressed. There is a Cortes catheter. GASTROINTESTINAL TRACT: There are postsurgical changes following right colectomy. There are fluid-filled loops of small bowel probably representing an ileus. There is a small amount of ascites in the pelvis. ABDOMINAL WALL: No significant hernia is appreciated. LYMPH NODES: Normal. VASCULAR: There is atherosclerotic disease. PELVIC VISCERA: Unremarkable. OSSEOUS STRUCTURES: There are degenerative changes of the spine. CT/CT abdomen pelvis wo con IMPRESSION: Satisfactory position of left internal ureteral stent. Small stone fragments seen in the left renal pelvis. Small stones in the lower pole of the left kidney. No perinephric collection or hematoma is seen. Right renal stones. Cortes catheter in the bladder. Bladder is empty. Small amount of ascites in the pelvis. Postsurgical changes post right colectomy. Upper normal-size gallbladder and gallstones. Mild intrahepatic biliary duct dilatation. These findings are similar to 2020 exam. Fleischner guidelines were followed.
--- NOTE | ~2021-11-02 | FL_ITS ---
EXAMINATION: XR FLUOROSCOPY WITH IMAGES CLINICAL INFORMATION: Left ureteral stone. COMPARISON: None. TECHNIQUE: Fluoroscopy performed by Dr. Dannie Majano Fluoroscopy time: 78.1 seconds DAP: 11.98 mGy-cm2 Images: 2 FINDINGS: There are 2 digital images obtained in the OR. The first image reveals a guidewire stent within the left renal pelvis. The subsequent image reveals left internal stent with its distal end in the bladder. The proximal end is not in the [id number]. FL/FL guidance in OR IMPRESSION: Fluoroscopy was provided to Dr. Melecio Pandey during the procedure.
--- NOTE | ~2021-11-02 | XR_ITS ---
EXAMINATION: XR CHEST CLINICAL INFORMATION: Status post left thoracentesis. COMPARISON: None TECHNIQUE: 2 views of the chest were obtained. FINDINGS: Status post left thoracentesis there is no visible pneumothorax on inspiration and expiration views. There is minimal blunting of left CP angle likely from residual pleural effusion. The left lung is expanded. There is a small loculated right pleural effusion. Previously seen loculated effusion in the right minor fissure has resolved. Even the loculated effusion along the right lateral chest wall appears slightly improved. There is underlying minimal atelectasis. Mild bilateral apical pleural thickening is seen. The heart size and pulmonary vascularity is normal. There is a left subclavian venous line with its tip in the proximal SVC. No gross bony abnormality seen. XR/XR chest 2V IMPRESSION: Status post left thoracentesis there is no pneumothorax. There is minimal blunting of left CP angle from pleural effusion. No change in the left subclavian venous venous line. Right pleural effusion appears improved since 11/05/2021 exam. Loculated effusion along the right minor fissure has resolved.
--- NOTE | ~2021-11-02 | XR_ITS ---
EXAMINATION: XR CHEST CLINICAL INFORMATION: Line placement. COMPARISON: Chest x-ray 11/02/2019, 9:55 PM TECHNIQUE: Frontal portable view of the chest was obtained. 1616 hours FINDINGS: Left subclavian line catheter tip in superior vena cava. Catheter approximately 4 cm proximal to the cavoatrial junction. There is no pneumothorax. Cardiac and mediastinal contours are normal. Heart size normal. No pulmonary vascular congestion. No focal consolidation. Mild blunting of the right and left costophrenic angle unchanged since prior study. Possible small pleural effusions. XR/XR chest 1V IMPRESSION: 1.Left subclavian line catheter tip in superior vena cava. No pneumothorax. 2. Mild blunting of costophrenic angles bilaterally possibly due to small bilateral pleural effusions. No change since prior chest x-ray 11/02/2019.
--- NOTE | ~2021-11-02 | XR_ITS ---
EXAMINATION: XR CHEST CLINICAL INFORMATION: SOB. COMPARISON: Chest 11/03/2021 TECHNIQUE: Frontal view of the chest was obtained. FINDINGS: There is mild blunting of bilateral lung CP angles from pleural effusion or thickening slightly greater on the right. Increased markings are seen in both lung bases question infiltrate or atelectasis. There is a moderate size hiatal hernia. The heart size is borderline normal. Pulmonary vascularity is normal. There is likely loculated effusion in the right minor fissure simulating mass. There is a left central venous catheter in the proximal SVC. Linear tubular artifact is seen overlying the right upper chest. No gross bony abnormality. XR/XR chest 1V IMPRESSION: Bilateral pleural effusions and bibasilar haziness likely infiltrate and/or atelectasis. The effusions greater on the right with slight loculated pleural effusion along the right minor fissure. No change in left central venous catheter. Suspect moderate size hiatal hernia.
[2021-11-02] MEDS: Lactated Ringers 1,000 ML 100 ML IVCONT (09:08)
--- NOTE | 2021-11-02 09:27 | P.HPSUR_ITS ---
Pre-Procedural Eval Section A Date of Service: 11/02/21 Section B Chief Complaint: calculus of kidney Details of Present Illness: recurring UTI with left stone - background of longstanding MS Relevant Family History (Specify if Yes): No Relevant Social History: None Present Medications: see Short Stay Collaborative assessment Medical History: Significant History History of Previous Operations: Relevant previous surgery/procedure and date(s) Allergies: Allergies Allergy/AdvReac Type Severity Reaction Status Date / Time nystatin [NYSTATIN] Allergy Severe SWOLLEN Verified 09/22/21 14:55 MOUTH Penicillins [PENICILLINS] Allergy Severe SWELLING,HI Verified 09/22/21 14:55 VES ciprofloxacin [CIPROFLOXACIN] Allergy Intermediate HIVES Verified 09/22/21 14:55 clindamycin [CLINDAMYCIN] Allergy Intermediate ITCHYNESS,D Verified 09/22/21 14:55 IARRHEA,HIV ES levofloxacin [From Levaquin] Allergy Intermediate HIVES.ITCHI Verified 09/22/21 14:55 NESS,DIARRH EA Sulfa (Sulfonamide Allergy Intermediate HIVES Verified 09/22/21 14:55 Antibiotics) [SULFA(SULFONAMIDE ANTIBIOTICS)] Review of Systems Sugical H&P ROS: Negative: Constitution, Cardiovascular, Respiratory, Neurologi randi, Psychiatric, Hem-Onc, Allergic/Immunologic, Gastrointestinal, Genitourinary, Musculoskeletal, Integumentary, Endocrine and Eyes/Ears/Nose/Throat Exam Surgical H&P Exam: Normal: HEENT, Normal: Heart, Normal: Lungs, Normal: Extremities, Normal: Abdomen, Normal: Skin and Normal: Neurological Plan Diagnosis/Plan: Unchanged ( cystoscopy, left retrograde left ureteroscopy laser lithotripsy stent placement) I have reviewed the history and physical and performed a pertinent physical examination on my patient. No changes have occurred unless specified.
[2021-11-02] MEDS: ceFAZolin Sodium/Dextrose,Iso 2 GM/50 ML PIGGYBACK IV (09:49)
--- NOTE | 2021-11-02 11:08 | W.PM.OPN ---
Operative Note Operative Note Date of Service: 11/02/21 Narrative: PreOperative Diagnosis: recurring UTI with bilateral renal stones in setting of multiple sclerosis Post Operative Diagnosis: multiple large left-sided renal stones Procedure: - cystoscopy, left retrograde - left dilatation of ureteric orifice under fluoroscopy - left flexible ureteroscopy, laser lithotripsy, stone basketing - multiple stones - left stent placement Surgeon: Dr Dannie Majano Anesthesia: General Indications for procedure: 71-year-old multiple sclerosis patient who is bed-bound. Recurrent renal stones with recurrent infections. Imaging shows multiple 1 cm stones bilateral. Left side has higher stone burden recommend intervention with flexible ureteroscopy given multiple stones Procedure: After informed consent was verified patient was brought to the operating placed in supine position. Anesthesia was administered per protocol. Patient was placed in modified dorsal lithotomy position and prepped and draped in a sterile fashion. Safety pause time-out and side of surgery confirmed. Antibiotics confirmed. 22 [place] cystoscope was inserted per urethra. Bladder was normal in its entirety. Both ureteric orifices were in normal position. The left ureteric orifice was cannulated and a retrograde examination was performed. mild hydronephrosis seen with multiple filling defects in renal pelvis . A Sensor guidewire was placed up to the level of the renal pelvis under fluoroscopy. The rigid cystoscope was removed and the inner cannula of ureteric access sheath was used under fluoroscopy to dilate the ureteric orifice. The ureteric access sheath was placed and the inner cannula with access wire removed. The digital flexible ureteral scope was placed. the renal pelvis had multiple stones. The 1st stone encountered was in the upper pole. Using a 270 micron laser fiber this was broken into small pieces. The renal pelvis was further examined. Inflammation was noted around the renal pelvis suggestive of chronic irritation. There were areas of mucous plugging within calices that suggested biofilm over small stones. Some of these areas were basketed in the mucus removed. Large stone was encountered in the mid pole area. This was broken into small pieces using high frequency and low power. This took approximately 45 minutes for the single stone. Basket was used to remove fragments that were able to be grasped. A secondary area of biofilm with mucus was noted in the lower pole and this was also removed. Using the open-ended catheter the kidney was irrigated out multiple times try to remove fragments debris and mucus. A 6 [place] by Twenty-two cm double-J stent was placed into the renal pelvis and bladder under a combination of fluoroscopy and direct visualization. The bladder was emptied. The patient tolerated the procedure well and was extubated in the operating room, and transferred in stable condition to the recovery area. Cortes catheter had been placed Pathology: stones and biofilm mucus Drains: 6 [place] by 22 cm stent
[2021-11-02] MEDS: Phenazopyridine HCL 100 MG TABLET PO (11:50)
[2021-11-02] MEDS: Acetaminophen 325 MG TABLET 650 MG PO ×2 (11:50→17:15)
[2021-11-02] MEDS: Haloperidol Lactate 5 MG/ML VIAL IVPUSH (16:33)
[2021-11-02] MEDS: fentaNYL citrate/PF 100 MCG/2 ML VIAL 25 MCG IVPUSH (16:42)
[2021-11-02 17:21] LABS: Hematocrit 31.7 % (37.0-47.0); Hemoglobin 9.6 g/dl (12.0-16.0)
[2021-11-02 18:22] LABS: Lactic Acid 3.3 mmol/L (0.5-2.0)
[2021-11-02] MEDS: 0.9 % Sodium Chloride 1,000 ML 80 ML IVCONT (19:09)
[2021-11-02] MEDS: Gentamicin Sulfate/NaCl 80 MG/100 ML PIGGYBACK 100 MG IV (19:15)
[2021-11-02 19:18] LABS: Reflex Lactate? Lactic Acid Added
[2021-11-02 19:25] LABS: COVID-19 Test Negative (Negative); IDNOW Serial# 9DD0AD1C
[2021-11-02] MEDS: 0.9 % Sodium Chloride 1,496.85 ML 1496.85 ML IV (19:30)
[2021-11-02 21:33] LABS: Lactic Acid 3.5 mmol/L (0.5-2.0)
--- NOTE | 2021-11-02 22:25 | HO.PM.IMCN ---
History of Present Illness Data of Consult Service Date: 11/02/21 Primary Care Provider: Jakub Santacruz MD HPI Reason for consult: Fever Consult Requesting Physician: Dannei Chapman HPI: 71-year-old female with a past medical history of multiple sclerosis admitted to the Urology Service for renal calculi requiringcystoscopy, left retrograde left ureteroscopy laser lithotripsy stent placement on 11/02/20. postprocedure patient became tachycardic, blood pressure on the soft side, lactic acidosis; had Cortes catheter in place postprocedure and Cortes bag showed gross hematuria; admitted to the medical floors for observation Patient was also started on antibiotics. Medicine team was consulted given fever and lactic acidosis. Patient denies any cough, sputum production, abdominal discomfort, nausea, vomiting, urinary symptoms. Has Cortes in place with hematuria in the Cortes bag. Denies any lightheadedness dizziness. Denies any chest pain or palpitations. Review of all other systems is negative except mentioned above ON LICENSE OF [facility] Medical History Colon cancer Kidney stones Multiple sclerosis Functional capacity: wheelchair bound Family History Father No problems noted. Mother Kidney disease Maternal Aunt Breast cancer Pertinent family history: as mentioned above Surgical History H/O rectal polypectomy Social History Household Members: Significant Other and Children Housing: House Do you presently have visiting nurse or other home services: Yes Alcohol intake: never Patient Tobacco Use Status: Never used Tobacco Second Hand Smoke Exposure: No Use of substances other than those prescribed or required for medical reasons: No Have you been hit, kicked, punched, or otherwise hurt by someone within the past year? If so, by whom?: No Do you feel safe in your current relationship?: Yes Is there a partner from a previous relationship who is making you feel unsafe now?: No Are you made to feel afraid or neglected: No Are you DNR?: No Advance Directives: No Advance Directives Information Provided: Yes Advance Directives on File: No Do you have thoughts of harming others: None Do you have a plan to hurt others: No Plan Recently lost weight without trying: No Nutrition Risks: No Nutritional Risk Meds Allergies Allergy/AdvReac Type Severity Reaction Status Date / Time nystatin [NYSTATIN] Allergy Severe SWOLLEN Verified 09/22/21 14:55 MOUTH Penicillins [PENICILLINS] Allergy Severe SWELLING,HI Verified 09/22/21 14:55 VES ciprofloxacin [CIPROFLOXACIN] Allergy Intermediate HIVES Verified 09/22/21 14:55 clindamycin [CLINDAMYCIN] Allergy Intermediate ITCHYNESS,D Verified 09/22/21 14:55 IARRHEA,HIV ES levofloxacin [From Levaquin] Allergy Intermediate HIVES.ITCHI Verified 09/22/21 14:55 NESS,DIARRH EA Sulfa (Sulfonamide Allergy Intermediate HIVES Verified 09/22/21 14:55 Antibiotics) [SULFA(SULFONAMIDE ANTIBIOTICS)] Active Medications: Current Medications Fentanyl (Fentanyl Citrate/Pf 100 Mcg/2 Ml Vial) 25 mcg IVPUSH Q5M PRN; Protocol PRN Reason: Pain, Moderate (Pain Scale 4-6 Last Admin: 11/02/21 16:42 Dose: 25 mcg Documented by: Lactated Ringer's (Lr) 1,000 mls @ 100 mls/hr IVCONT .Q10H [facility] Last Infusion: 11/02/21 20:43 Dose: Infused Documented by: Sodium Chloride (Ns) 1,000 mls @ 80 mls/hr IVCONT .[id number] [facility] Last Admin: 11/02/21 19:09 Dose: 80 mls/hr Documented by: Ondansetron HCl (Ondansetron Odt 8 Mg Tab.Rapdis) 8 mg TRANSLINGU Q8H PRN PRN Reason: Nausea and Vomiting Home Medications Medication Instructions Recorded Confirmed Last Taken Type chlorhexidine gluconate 0.12 % PO 08/15/20 05/26/21 Unknown History mouthwash collagenase clostridium histo. 250 TOPICAL 08/15/20 05/26/21 Unknown History unit/gram topical ointment ibuprofen 600 mg tablet mg PO 08/15/20 05/26/21 Unknown History modafinil 200 mg tablet mg PO 08/15/20 05/26/21 Unknown History mupirocin 2 % topical ointment TOPICAL 08/15/20 05/26/21 Unknown History hydrocortisone 2.5 % topical cream TOPICAL 01/14/21 05/26/21 Unknown History with perineal applicator nitrofurantoin 100 mg PO BID cap 09/08/21 Unknown History monohydrate/macrocrystals 100 mg capsule (Macrobid) Physical Exam Vital Signs and Narrative: Vital Signs: Last Vital Signs Temp 100.0 F 11/02/21 19:12 Pulse 109 H 11/02/21 19:35 Resp 20 11/02/21 19:35 BP 116/51 L 11/02/21 19:35 Pulse Ox 99 11/02/21 19:35 BMI result Body Mass Index 17.6 Gen: Appears be in no acute distress HEENT: NCAT, Moist mucosa. Pulmonary: Vesicular breath sounds, fair air entry CVS: Normal S1-S2 Abdomen: BS+, Soft, Nontender Extremities: Warm well perfused Neuro: Alert and awake. oriented x 3; contracted upper and lower extremities-secondary to multiple sclerosis-chronic per patient Results Labs CBC and Chem 7: 11/02/21 17:13 Labs: Laboratory Results - last 24 hr 11/02/21 11/02/21 11/02/21 17:13 17:13 18:55 MCV Cancelled MCH Cancelled MCHC Cancelled RDW Cancelled Plt Count Cancelled MPV Cancelled Immature Gran % (Auto) Cancelled Neut % (Auto) Cancelled Lymph % (Auto) Cancelled [place] % (Auto) Cancelled Eos % (Auto) Cancelled Baso % (Auto) Cancelled Lymph # (Auto) Cancelled [place] # (Auto) Cancelled Eos # (Auto) Cancelled Baso # (Auto) Cancelled Abs Immat Gran (auto) Cancelled Absolute Neuts (auto) Cancelled Absolute Nucleated RBC Cancelled Nucleated RBC % (auto) Cancelled Lactic Acid 3.3 H* COVID-19 (GISELL) Negative COVID-19 Clin Com See Note 11/02/21 20:29 MCV MCH MCHC RDW Plt Count MPV Immature Gran % (Auto) Neut % (Auto) Lymph % (Auto) [place] % (Auto) Eos % (Auto) Baso % (Auto) Lymph # (Auto) [place] # (Auto) Eos # (Auto) Baso # (Auto) Abs Immat Gran (auto) Absolute Neuts (auto) Absolute Nucleated RBC Nucleated RBC % (auto) Lactic Acid 3.5 H* COVID-19 (GISELL) COVID-19 Clin Com Imaging Radiologist's Impressions: Impressions Chest X-Ray 11/02/21 22:05 IMPRESSION: There is blunting of the costophrenic ankles which may be due to pleural thickening or trace pleural effusions. Otherwise, clear lungs. Assessment and Plan (1) Fever: Status: Acute 71-year-old female with a past medical history of multiple sclerosis admitted to the Urology Service for renal calculi requiring cystoscopy, left retrograde left ureteroscopy laser lithotripsy stent placement on 11/02/20. postprocedure patient became tachycardic, blood pressure on the soft side, lactic acidosis; had Cortes catheter in place postprocedure and Cortes bag showed gross hematuria; admitted to the medical floors for observation Patient was also started on antibiotics. Medicine team was consulted given fever and lactic acidosis. Fever: Question UTI. Send UA, CBC, BMP. Also obtain chest x-ray. Continue cefazolin empirically. Continue maintenance IV fluids. BP currently stable. Renal calculi: Status post cystoscopy /left retrograde ureteroscopy/laser lithotripsy /stent placement on 11/02/2020. Plan per Urology team. Hematuria: Likely postprocedural. Urology following. Patient on IV fluids. Lactic acidosis: Patient on IV fluids. Repeat levels. History of multiple sclerosis: Patient currently not on any medications DVT prophylaxis: SCD boots Code status: Full code
[2021-11-02 22:33] LABS: Reflex Lactate? Lactic Acid Added
[2021-11-02 22:48] LABS: Basophils Percent Auto 0.1 % (0-2); Hematocrit 29.6 % (37.0-47.0); Hemoglobin 8.9 g/dl (12.0-16.0); Imm Gran Abs Auto 0.17 X10*3/uL (0.00-0.03); Imm Gran Pct Auto 1.1 % (0.0-0.4); Lymphocytes Absolute Auto 0.1 X10*3/uL (1.2-4.9); Lymphocytes Percent Auto 0.5 % (20-40); MANUAL DIFF FLAG SCAN; Mean Corpuscular HGB Conc 30.1 g/dl (31.0-35.0); Mean Corpuscular Hemoglobin 30.7 pg (27.0-33.0); Mean Corpuscular Volume 102.1 fL (80.0-98.0); Mean Platelet Volume 9.4 fL (9.4-12.3); Monocytes Absolute Auto 0.2 X10*3/uL (0.1-1.2); Neutrophils Absolute Auto 15.5 x10*3/uL (2.0-8.3); Neutrophils Percent Auto 97.3 % (45-73); Platelet Count 255 X10*3/uL (160-400); Red Cell Distribution Width 14.6 % (11.0-16.0); SCAN SMEAR FLAG 1; White Blood Count 15.9 X10*3/uL (4.8-10.8)
[2021-11-02 22:49] LABS: Appearance Urine CLOUDY; Glucose Urine UA 100 MG/DL (NEG); Leukocyte Esterase Urine 2+ (NEG); Nitrite Urine POS (NEG); Urine Blood 3+ (NEG); Urine Ketones NEG (NEG); Urine Protein 3+ MG/DL (NEG-TRACE)
[2021-11-02 22:53] LABS: Color Urine BROWN
[2021-11-02 22:54] LABS: Bacteria Urine 2+ /LPF; RBC Urine TNTC /HPF (0); Squamous Epithelial Cell Urine 1+ /LPF
[2021-11-02 23:05] LABS: SLIDE REVIEW VERIFIED
[2021-11-02 23:13] LABS: Alanine Aminotransferase 91 U/L (0-31); Albumin Level 2.9 g/dL (3.5-5.0); Alkaline Phosphatase 99 U/L (39-117); Anion Gap 15 (12-20); Aspartate Amino Transferase 174 U/L (5-31); Bilirubin Direct 0.2 mg/dL (0.0-0.5); Bilirubin Total 0.3 mg/dL (0.0-1.0); Blood Urea Nitrogen 22 mg/dL (9-16); Calcium 8.3 mg/dL (8.4-10.2); Carbon Dioxide 22 mmol/L (22-29); Chloride 111 mmol/L (96-108); Estimated Glomerular Filt Rate 55; Glucose Random 135 mg/dL (60-115); Potassium 3.7 mmol/L (3.3-5.1); Sodium 144 mmol/L (135-145); Total Protein 5.9 g/dL (6.5-8.0); ~Lactic Acid-LAB USE ONLY 3.9 mmol/L (0.5-2.0)
[2021-11-03] VITALS (29 sets, daily range): BP systolic 84–115; BP diastolic 35–58; PULSE 98–152; RESP 14–26; TEMP 36.6–37.7; O2SAT 91–100; BMI 17.6
[2021-11-03 00:43] LABS: Reflex Lactate? 2 Y
[2021-11-03 01:25] LABS: ~Lactic Acid-LAB USE ONLY 4.8 mmol/L (0.5-2.0)
[2021-11-03] MEDS: Thiamine HCL 200 MG in 0.9 % Sodium Chloride 100 ML 204 MG IV (02:09)
[2021-11-03] MEDS: 0.9 % Sodium Chloride 1,000 ML 100 ML IVCONT (05:28)
[2021-11-03 07:20] LABS: Hematocrit 28.4 % (37.0-47.0); Hemoglobin 8.8 g/dl (12.0-16.0); Mean Platelet Volume 9.8 fL (9.4-12.3); Platelet Count 249 X10*3/uL (160-400); Red Blood Count 2.84 X10*6/uL (4.20-5.50); Red Cell Distribution Width 14.6 % (11.0-16.0)
[2021-11-03 07:29] LABS: Anion Gap 14 (12-20); Carbon Dioxide 21 mmol/L (22-29); Chloride 112 mmol/L (96-108); Potassium 3.9 mmol/L (3.3-5.1); Sodium 143 mmol/L (135-145)
[2021-11-03 07:43] LABS: Lactic Acid 2.7 mmol/L (0.5-2.0)
[2021-11-03 07:46] LABS: Band Neutrophils Percent 26 % (3-5); Metamyelocytes Absolute 0.5 X10*3/uL; Metamyelocytes Percent 2 %; Monocytes Absolute Manual 0.7 X10*3/uL (0.1-1.2); Monocytes Percent Manual 3 % (2-11); Neutrophils Absolute Manual 21.9 X10*3/uL (2.0-8.3); Neutrophils Percent Manual 69 % (45-73)
[2021-11-03 07:47] LABS: Dohle Bodies PRESENT; Toxic Vacuolation PRESENT
[2021-11-03 07:48] LABS: Macrocytosis 1+ (5-14) /OIF; RBC Morphology NOTED
[2021-11-03 07:49] LABS: Ovalocytes 1+ (5-14) /OIF; Platelet Estimate NORMAL (NORMAL)
[2021-11-03 07:50] LABS: Platelet Morphology Comment NORMAL
--- NOTE | 2021-11-03 08:00 | PHA.MEDREC ---
Pharmacy Consult ? Medication Reconciliation Pharmacy has completed the medication reconciliation. There are no remarkable issue for provider's attention. Carine Cintron, MelaniD
[2021-11-03] MEDS: 0.9 % Sodium Chloride 1,000 ML 999 ML IV ×3 (08:21→11:19)
--- NOTE | 2021-11-03 09:17 | MHC.CM.PN ---
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 she may need transportaion home when she is dcd as her son works every day in [place] pt is vaccinated
[2021-11-03] MEDS: cefEPime HCl 1 GM in 0.9 % Sodium Chloride 50 ML IV ×2 (09:19→20:11)
[2021-11-03 09:20] LABS: Reflex Lactate? Lactic Acid Added
--- NOTE | 2021-11-03 09:39 | MHC.CLN ---
RE: CONSULT PT IS UNDER WT FOR HT. PT REPORTS UBW 110# HAS BEEN UNDER WT FOR HT FOR A VERY LONG TIME . PT APPETITE IS FAIR. NOTED WT GAIN SINCE 07/09/2020 91#; 23% X >1 YEAR PT WITH INCREASED NUTRITION RISK R/T MS DIET RX: REGULAR-APPROPRIATE PT RECEPTIVE TO DRINKING ENSURE (PREFERS [employer]AW[employer]ERRY FLAVOR) WILL ADD ENSURE BID TO PROVIDE 700KCALS, 40G PROTEIN FRAGILE SKIN-MONITOR PO INTAKE CLOSELY SEE ALSO CLINICAL NUTRITION ASSESSMENT
[2021-11-03 10:12] LABS: ~Lactic Acid-LAB USE ONLY 4.1 mmol/L (0.5-2.0)
[2021-11-03 10:19] LABS: Creatinine Clr Calc Pharmacy 36.3; Estimated Glomerular Filt Rate 47
--- NOTE | 2021-11-03 10:23 | MHC.PIE ---
P: Pt BP 86/34 automated. Incontinent of liquid stool. HR 150's. I:Dr. Torres made aware. Manual BP re checked 100 sytolic. IV fluid blous ordered and started. Stool for C.diff collected. E: will continue to monitor
--- NOTE | 2021-11-03 10:47 | P.CDIC_ITS ---
CDI Concurrent Query Documentation Clarification: PHYSICIAN'S DOCUMENTATION REQUEST Date of Query: 11/03/21 1047 Patient Name: Joy Street Admit Date: 11/02/21 Dear Doctor, A review of the medical record indicates additional documentation may be needed. Please review below and update the documentation accordingly. Risk Factors/Clinical Indicators/Treatments Hospitalist Consult note: 11/02- postprocedure patient became tachycardic, lactic acidosis, bp on soft side, had antunez catheter in place postprocedure and antunez bag showed gross hematuria. Admit to medical floor. Start on Antibiotics WBC 15.9/23.0 LA 3.3/3.5 HR 109/148 Temp 100.0 RR 20 BP 116/51 L Based on the above, could you clarify in the Progress Notes the appropriate diagnosis, if significant, that supports the above abnormalities and additional evaluation, monitoring, and/or treatment rendered: * Sepsis (postoperative) due to UTI * Sepsis (postoperative) likely due to indwelling antunez catheter (UTI) or other etiology * Urinary tract infection * Postoperative Gross Hematuria * Other (please specify) * Unable to determine Use of terms such as suspected, likely, concern for, or probable (associated with a specific diagnosis that is being evaluated, monitored, or treated as if it exists) are acceptable and can be coded in the inpatient setting, when documented at the time of discharge. Thank you, Marilu Matos [facility], CDIS Extension: [phone] Please use your independent medical judgment in providing your response. THIS QUERY IS PART OF THE PERMANENT MEDICAL RECORD Provider Response: Severe Sepsis Other Diagnosis: Urosepsis following manipulation of kidney stone
--- NOTE | 2021-11-03 10:51 | PHA.PROG ---
Admission Date/Time: November 02, 2021 18:43 Indication: SEPSIS Weight in k.1 kg Serum Creatinine - Last 168 Hours 11/02/21 11/03/21 22:40 06:47 Creatinine 1.00 1.13 Estimated CrCl and GFR - Last 168 Hours 11/02/21 11/03/21 22:40 06:47 Estim Creat Clear Calc 41.0 36.3 Estimated GFR 55 47 Vancomycin Loading Dose: 1250 Current Vancomycin Dosing Regimen: 1000 Q 24H Vancomycin Monitoring using AUC goal of 400 - 600 range with trough as surrogate marker: 541 MG/L Date and Time for next Vancomycin Level to be drawn: 11/06 @ 0900 Pharmacist Comments on Vancomycin Plan: Vancomycin dosing will take advantage of [employer] as a clinical decision support tool that uses Bayesian modeling to calculate individual patient's pharmacokinetic parameters and forecast the patient's drug concentration time course with the target goal AUC 24 range of 400 - 600 mg/L/hr.
[2021-11-03 10:59] LABS: CDiff Gene PCR POSITIVE (Negative)
[2021-11-03] MEDS: vancomycin HCL 1,250 MG in 0.9 % Sodium Chloride 250 ML 166.67 MG IV ×2 (11:09→12:26)
[2021-11-03] MEDS: modafiniL 100 MG TABLET PO (11:19)
[2021-11-03 11:40] LABS: CDIFF Internal ctrl Dots and bkg OK (V); CDiff Toxin Negative (Negative)
[2021-11-03 11:49] LABS: Reflex Lactate? 2 Y
--- NOTE | 2021-11-03 12:14 | PM.EVENT ---
Event Note Date of Service: 11/03/21 Event Note: the patient was seen and evaluated this morning Noted to be tachycardic, having abdominal pain mildly tense on exam, spiking low-grade fever with low blood pressure readings of 90s over 40s Which did not improve with IV fluids. Elevated lactic acidosis. Started on broad-spectrum antibiotic of vancomycin and cefepime. Severe disc septic in impending septic shock. CT scan of the abdomen pelvis ordered along with C diff test. Dr. Majano aware of the changes and will follow with ICU Discussed with ICU provider Dr. Altman who evaluated the patient and decided to take her down to the unit for possible pressors.
[2021-11-03] MEDS: Lactated Ringers 1,000 ML 100 ML IVCONT (12:15)
[2021-11-03] MEDS: Phenylephrine HCL 20 MG in 0.9 % Sodium Chloride 250 ML 19.32 MG IVCONT (12:25)
[2021-11-03 13:18] LABS: ~Lactic Acid-LAB USE ONLY 3.1 mmol/L (0.5-2.0)
[2021-11-03 13:52] LABS: Cancel Lactic Acid Canceled
--- NOTE | 2021-11-03 13:57 | PC.NURSE ---
11:30 am Report called to Elise in ICU.
--- NOTE | 2021-11-03 14:29 | HO.POSTANES ---
Post Anesthesia Evaluation Post Anesthesia Evaluation Vital Signs: Vital Signs Temp Pulse Resp BP Pulse Ox 11/03/21 14:25 94/38 L 11/03/21 14:07 145 H 26 H 101/47 L 98 11/03/21 13:55 98.7 F 11/03/21 13:00 149 H 20 106/55 L 91 L 11/03/21 12:41 98/42 L 11/03/21 12:37 132 H 106/46 L 11/03/21 12:25 84/38 L 11/03/21 12:00 146 H 16 94/44 L 100 11/03/21 11:00 98.8 F 148 H 16 98/44 L 99 11/03/21 08:00 99.9 F 152 H 18 100/50 L 100 11/03/21 03:03 97.9 F 98 18 112/58 L 99 Anesthesia: General Mental Status: Awake Pain Control: Satisfactory Nausea/Vomiting: Mild Hydration: Adequate Anesthesia-Related Issues: No Anes. Related Issues Comments: patient became septic most liekly secondary to surgical procedure. tachycardia, hypotension ans elevated lactic acid
[2021-11-03] MEDS: Hydrocortisone Sod Succ/PF 100 MG VIAL 50 MG IVPUSH (14:49)
--- NOTE | 2021-11-03 15:32 | P.CONGS_ITS ---
History of Present Illness Consult details Consult date: 11/03/21 Narrative: Asked by Dr. Altman to evaluate this pleasant 71-year-old female patient status post renal stent placement now in septic shock. Patient was found to be tensely distended in the abdomen this morning with tenderness in the upper abdomen. She was subsequently transferred to the ICU for further management. A CT of the abdomen and pelvis was obtained which revealed distended loops of small large bowel and postoperative changes following colectomy for colon cancer. A small amount of intraperitoneal fluid was id entified. No free air to indicate perforation. Of note the gallbladder was noted to be distended with gallstones. Renal stents were in adequate position. No abscess could [place] appreciated. [place] [address] with 26% band/neutrophils. Patient reports 2 large bowel movements yesterday but denies any bowel movement today. She had an episode of nausea earlier today but is better now. Review of Systems Review of Systems: Yes Unobtainable due to mental condition PMFSH Past Medical History Medical History Colon cancer Kidney stones Multiple sclerosis Functional capacity: wheelchair bound Family History Family History Father No problems noted. Mother Kidney disease Maternal Aunt Breast cancer Surgical History Surgical History H/O rectal polypectomy Social History Social History Household Members: Significant Other and Children Housing: House Do you presently have visiting nurse or other home services: Yes Alcohol intake: never Patient Tobacco Use Status: Never used Tobacco Second Hand Smoke Exposure: No Use of substances other than those prescribed or required for medical reasons: No Currently Displaying Signs/Symptoms of Drug Intoxication Withdrawal: No Have you been hit, kicked, punched, or otherwise hurt by someone within the past year? If so, by whom?: No Do you feel safe in your current relationship?: Yes Is there a partner from a previous relationship who is making you feel unsafe now?: No Are you made to feel afraid or neglected: No Are you DNR?: No Advance Directives: No Advance Directives Information Provided: Yes Advance Directives on File: No Do you have thoughts of harming others: None Do you have a plan to hurt others: No Plan Recently lost weight without trying: No Nutrition Risks: No Nutritional Risk service: No Meds Allergies Allergy/AdvReac Type Severity Reaction Status Date / Time nystatin [NYSTATIN] Allergy Severe SWOLLEN Verified 09/22/21 14:55 MOUTH Penicillins [PENICILLINS] Allergy Severe SWELLING,HI Verified 09/22/21 14:55 VES ciprofloxacin [CIPROFLOXACIN] Allergy Intermediate HIVES Verified 09/22/21 14:55 clindamycin [CLINDAMYCIN] Allergy Intermediate ITCHYNESS,D Verified 09/22/21 14:55 IARRHEA,HIV ES levofloxacin [From Levaquin] Allergy Intermediate HIVES.ITCHI Verified 09/22/21 14:55 NESS,DIARRH EA Sulfa (Sulfonamide Allergy Intermediate HIVES Verified 09/22/21 14:55 Antibiotics) [SULFA(SULFONAMIDE ANTIBIOTICS)] Active Medications: Current Medications Lactated Ringer's (Lr) 1,000 mls @ 100 mls/hr IVCONT .Q10H [facility] Last Infusion: 11/03/21 14:18 Dose: Infused Documented by: Cefepime HCl 1 gm/ Sodium (Chloride) 50 mls @ 100 mls/hr IV Q12H [facility] Last Infusion: 11/03/21 09:49 Dose: Infused Documented by: Vancomycin HCl 1,000 mg/ (Sodium Chloride) 270 mls @ 270 mls/hr IV Q24H [facility] Phenylephrine HCl 20 mg/ (Sodium Chloride) 252 mls @ 0 mls/hr IVCONT .Q0M [facility]; Protocol Last Titration: 11/03/21 14:32 Dose: 1.8 mcg/kg/min, 69.54 mls/hr Documented by: Modafinil (Modafinil 100 Mg Tablet) 100 mg PO BID@0800,1200 [facility] Last Admin: 11/03/21 11:19 Dose: 100 mg Documented by: Ondansetron HCl (Ondansetron Odt 8 Mg Tab.Rapdis) 8 mg TRANSLINGU Q8H PRN PRN Reason: Nausea and Vomiting Home Medications Medication Instructions Recorded Confirmed Last Taken Type modafinil 200 mg tablet 100 mg PO BID@0800,1200 08/15/20 11/03/21 Unknown History diclofenac sodium 1 % topical gel 2 g TOPICAL BID PRN 11/03/21 11/03/21 Unknown History furosemide 20 mg tablet 20 mg PO DAILY PRN 11/03/21 11/03/21 Unknown History Physical Exam Vital Signs: Vital Signs: Last Vital Signs Temp 98.7 F 11/03/21 13:55 Pulse 145 H 11/03/21 14:07 Resp 26 H 11/03/21 14:07 BP 90/38 L 11/03/21 14:32 Pulse Ox 98 11/03/21 14:07 BMI result Body Mass Index 17.6 Const: General: awake and ill appearing Nutritional Appearance: average body habitus Orientation/consciousness: patient oriented x3 HENMT: Head: Yes normocephalic and Yes atraumatic Ears: hearing grossly normal bilaterally Resp: Effort & Inspection: normal respiratory effort, no audible wheezes and no respiratory distress GI: Other: Distended abdomen tympany to percussion. Tender in the right upper quadrant deep palpation without rebound, guarding, or rigidity. Skin: General skin exam: dry skin and no erythema Neuro: General: patient oriented x3 Results Labs Result diagrams: 11/03/21 16:07 11/03/21 06:47 Labs: Abnormal lab results 11/02/21 11/02/21 11/02/21 Range/Units 17:13 17:13 20:29 WBC (4.8-10.8) X10*3/uL RBC (4.20-5.50) X10*6/uL Hgb 9.6 L (12.0-16.0) g/dl Hct 31.7 L (37.0-47.0) % MCV (80.0-98.0) fL MCHC (31.0-35.0) g/dl Immature Gran % (Auto) (0.0-0.4) % Neut % (Auto) (45-73) % Lymph % (Auto) (20-40) % [place] % (Auto) (2-11) % Lymph # (Auto) (1.2-4.9) X10*3/uL Abs Immat Gran (auto) (0.00-0.03) X10*3/uL Absolute Neuts (auto) (2.0-8.3) x10*3/uL Band Neutrophils % (3-5) % Abs Neuts (Manual) (2.0-8.3) X10*3/uL Chloride (96-108) mmol/L Carbon Dioxide (22-29) mmol/L BUN (9-16) mg/dL Random Glucose (60-115) mg/dL Lactic Acid 3.3 H* 3.5 H* (0.5-2.0) mmol/L Lactic Acid F/U @ 2Hr (0.5-2.0) mmol/L Lactic Acid F/U @ 4Hr (0.5-2.0) mmol/L Calcium (8.4-10.2) mg/dL AST (5-31) U/L ALT (0-31) U/L Total Protein (6.5-8.0) g/dL Albumin (3.5-5.0) g/dL Urine Protein (NEG-TRACE) MG/DL Urine Glucose (UA) (NEG) MG/DL Urine Blood (NEG) Urine Nitrite (NEG) Ur Leukocyte Esterase (NEG) Urine RBC (0) /HPF Urine WBC (0-4) /HPF C. difficile Tox B Gene (Negative) 11/02/21 11/02/21 11/02/21 Range/Units 22:15 22:40 22:40 WBC 15.9 H (4.8-10.8) X10*3/uL RBC 2.90 L (4.20-5.50) X10*6/uL Hgb 8.9 L (12.0-16.0) g/dl Hct 29.6 L (37.0-47.0) % MCV 102.1 H (80.0-98.0) fL MCHC 30.1 L (31.0-35.0) g/dl Immature Gran % (Auto) 1.1 H (0.0-0.4) % Neut % (Auto) 97.3 H (45-73) % Lymph % (Auto) 0.5 L (20-40) % [place] % (Auto) 1.0 L (2-11) % Lymph # (Auto) 0.1 L (1.2-4.9) X10*3/uL Abs Immat Gran (auto) 0.17 H (0.00-0.03) X10*3/uL Absolute Neuts (auto) 15.5 H (2.0-8.3) x10*3/uL Band Neutrophils % (3-5) % Abs Neuts (Manual) (2.0-8.3) X10*3/uL Chloride 111 H (96-108) mmol/L Carbon Dioxide (22-29) mmol/L BUN 22 H (9-16) mg/dL Random Glucose 135 H (60-115) mg/dL Lactic Acid (0.5-2.0) mmol/L Lactic Acid F/U @ 2Hr (0.5-2.0) mmol/L Lactic Acid F/U @ 4Hr (0.5-2.0) mmol/L Calcium 8.3 L (8.4-10.2) mg/dL AST 174 H (5-31) U/L ALT 91 H (0-31) U/L Total Protein 5.9 L (6.5-8.0) g/dL Albumin 2.9 L (3.5-5.0) g/dL Urine Protein 3+ H (NEG-TRACE) MG/DL Urine Glucose (UA) 100 H (NEG) MG/DL Urine Blood 3+ H (NEG) Urine Nitrite POS H (NEG) Ur Leukocyte Esterase 2+ H (NEG) Urine RBC TNTC H (0) /HPF Urine WBC 10-14 H (0-4) /HPF C. difficile Tox B Gene (Negative) 11/02/21 11/03/21 11/03/21 Range/Units 22:40 00:56 06:47 WBC 23.0 H (4.8-10.8) X10*3/uL RBC 2.84 L (4.20-5.50) X10*6/uL Hgb 8.8 L (12.0-16.0) g/dl Hct 28.4 L (37.0-47.0) % MCV 100.0 H (80.0-98.0) fL MCHC (31.0-35.0) g/dl Immature Gran % (Auto) (0.0-0.4) % Neut % (Auto) (45-73) % Lymph % (Auto) (20-40) % [place] % (Auto) (2-11) % Lymph # (Auto) (1.2-4.9) X10*3/uL Abs Immat Gran (auto) (0.00-0.03) X10*3/uL Absolute Neuts (auto) (2.0-8.3) x10*3/uL Band Neutrophils % 26 H (3-5) % Abs Neuts (Manual) 21.9 H (2.0-8.3) X10*3/uL Chloride (96-108) mmol/L Carbon Dioxide (22-29) mmol/L BUN (9-16) mg/dL Random Glucose (60-115) mg/dL Lactic Acid (0.5-2.0) mmol/L Lactic Acid F/U @ 2Hr 3.9 H* (0.5-2.0) mmol/L Lactic Acid F/U @ 4Hr 4.8 H* (0.5-2.0) mmol/L Calcium (8.4-10.2) mg/dL AST (5-31) U/L ALT (0-31) U/L Total Protein (6.5-8.0) g/dL Albumin (3.5-5.0) g/dL Urine Protein (NEG-TRACE) MG/DL Urine Glucose (UA) (NEG) MG/DL Urine Blood (NEG) Urine Nitrite (NEG) Ur Leukocyte Esterase (NEG) Urine RBC (0) /HPF Urine WBC (0-4) /HPF C. difficile Tox B Gene (Negative) 11/03/21 11/03/21 11/03/21 Range/Units 06:47 06:47 09:47 WBC (4.8-10.8) X10*3/uL RBC (4.20-5.50) X10*6/uL Hgb (12.0-16.0) g/dl Hct (37.0-47.0) % MCV (80.0-98.0) fL MCHC (31.0-35.0) g/dl Immature Gran % (Auto) (0.0-0.4) % Neut % (Auto) (45-73) % Lymph % (Auto) (20-40) % [place] % (Auto) (2-11) % Lymph # (Auto) (1.2-4.9) X10*3/uL Abs Immat Gran (auto) (0.00-0.03) X10*3/uL Absolute Neuts (auto) (2.0-8.3) x10*3/uL Band Neutrophils % (3-5) % Abs Neuts (Manual) (2.0-8.3) X10*3/uL Chloride 112 H (96-108) mmol/L Carbon Dioxide 21 L (22-29) mmol/L BUN (9-16) mg/dL Random Glucose (60-115) mg/dL Lactic Acid 2.7 H* (0.5-2.0) mmol/L Lactic Acid F/U @ 2Hr 4.1 H* (0.5-2.0) mmol/L Lactic Acid F/U @ 4Hr (0.5-2.0) mmol/L Calcium (8.4-10.2) mg/dL AST (5-31) U/L ALT (0-31) U/L Total Protein (6.5-8.0) g/dL Albumin (3.5-5.0) g/dL Urine Protein (NEG-TRACE) MG/DL Urine Glucose (UA) (NEG) MG/DL Urine Blood (NEG) Urine Nitrite (NEG) Ur Leukocyte Esterase (NEG) Urine RBC (0) /HPF Urine WBC (0-4) /HPF C. difficile Tox B Gene (Negative) 11/03/21 11/03/21 Range/Units 12:27 Unknown WBC (4.8-10.8) X10*3/uL RBC (4.20-5.50) X10*6/uL Hgb (12.0-16.0) g/dl Hct (37.0-47.0) % MCV (80.0-98.0) fL MCHC (31.0-35.0) g/dl Immature Gran % (Auto) (0.0-0.4) % Neut % (Auto) (45-73) % Lymph % (Auto) (20-40) % [place] % (Auto) (2-11) % Lymph # (Auto) (1.2-4.9) X10*3/uL Abs Immat Gran (auto) (0.00-0.03) X10*3/uL Absolute Neuts (auto) (2.0-8.3) x10*3/uL Band Neutrophils % (3-5) % Abs Neuts (Manual) (2.0-8.3) X10*3/uL Chloride (96-108) mmol/L Carbon Dioxide (22-29) mmol/L BUN (9-16) mg/dL Random Glucose (60-115) mg/dL Lactic Acid (0.5-2.0) mmol/L Lactic Acid F/U @ 2Hr (0.5-2.0) mmol/L Lactic Acid F/U @ 4Hr 3.1 H* (0.5-2.0) mmol/L Calcium (8.4-10.2) mg/dL AST (5-31) U/L ALT (0-31) U/L Total Protein (6.5-8.0) g/dL Albumin (3.5-5.0) g/dL Urine Protein (NEG-TRACE) MG/DL Urine Glucose (UA) (NEG) MG/DL Urine Blood (NEG) Urine Nitrite (NEG) Ur Leukocyte Esterase (NEG) Urine RBC (0) /HPF Urine WBC (0-4) /HPF C. difficile Tox B Gene POSITIVE A* (Negative) Short CBC 11/02/21 11/02/21 11/02/21 Range/Units 17:13 17:13 22:40 WBC Cancelled 15.9 H Hgb 9.6 L Cancelled 8.9 L (12.0-16.0) g/dl Hct 31.7 L Cancelled 29.6 L (37.0-47.0) % Plt Count Cancelled 255 11/03/21 Range/Units 06:47 WBC 23.0 H Hgb 8.8 L (12.0-16.0) g/dl Hct 28.4 L (37.0-47.0) % Plt Count 249 BMP 11/02/21 11/03/21 22:40 06:47 Sodium 144 143 Potassium 3.7 3.9 Chloride 111 H 112 H Carbon Dioxide 22 21 L BUN 22 H Creatinine 1.00 1.13 Calcium 8.3 L Liver Function 11/02/21 Range/Units 22:40 Total Bilirubin 0.3 (0.0-1.0) mg/dL Direct Bilirubin 0.2 (0.0-0.5) mg/dL AST 174 H (5-31) U/L ALT 91 H (0-31) U/L Alkaline Phosphatase 99 (39-117) U/L Albumin 2.9 L (3.5-5.0) g/dL Urine 11/02/21 Range/Units 22:15 Urine Color BROWN Urine Appearance CLOUDY Urine pH 7.0 (5.0-8.0) Ur Specific [place] 1.020 (1.005-1.025) Urine Protein 3+ H (NEG-TRACE) MG/DL Urine Glucose (UA) 100 H (NEG) MG/DL All other labs normal. Assessment and Plan (1) Sepsis: Status: Acute (2) Fever: Status: Acute (3) Ileus: Status: Acute (4) C. difficile colitis: Status: Acute 71-year-old female patient status post urologic procedure with subsequent sepsis found to have abdominal distension. On examination the patient is markedly distended with tympany but is passing stool. Stools positive for C diff. No evidence of abscess, perforation by CT. Distended large and small bowel suggestive of ileus. Sepsis related to recent urologic procedure or C diff colitis. Will follow along during her hospitalization. Procedures Date of Service Date of Service: 11/03/21
--- NOTE | 2021-11-03 15:36 | P.PNUR_ITS ---
Subjective Subjective Date of Service: 11/03/21 Interval history: Events of past 24 hours noted Joy underwent ureteroscopy with laser lithotripsy of large stone in right renal pelvis At the time of procedure stone was noted to be covered with biofilm In the postoperative setting she developed hypotension with elevated white count and temperature consistent with a sepsis response Has been admitted for broad-spectrum antibiotics and supportive care with rehydration After she was seen this morning was noted to have low blood pressure and has been transferred to ICU for blood pressure support White count shows rise to 23, lactic acid has fallen overnight, creatinine is relatively stable Physical Exam Vital Signs: Vital Signs: Last Vital Signs Temp 98.7 F 11/03/21 13:55 Pulse 145 H 11/03/21 14:07 Resp 26 H 11/03/21 14:07 BP 90/38 L 11/03/21 14:32 Pulse Ox 98 11/03/21 14:07 BMI result Body Mass Index 17.6 Const: General: cooperative, healthy appearing, comfortable and no acute distress Orientation/consciousness: patient oriented x3 HENMT: Face and sinus: Yes normal facial exam Mouth: moist mucous membranes Neck: Neck: Yes normal visual inspection, Yes full ROM and Yes trachea midline Chest: Chest palpation & inspection: normal inspection of the chest Resp: Effort & Inspection: normal respiratory effort, able to speak in complete sentences and no respiratory distress GI: Inspection: Yes normal to inspection Back/Spine/Pelvis: Cervical Spine: normal cervical lordosis Thoracic/Lumbar Spine: thoracic and lumbar spine normal to inspection Skin: General skin exam: no rashes or lesions noted Neuro: General: patient oriented x3, tone normal and moves all extremities Extrem: General: Yes normal to inspection and Yes capillary refill normal Urology Results Labs CBC & Chem 7: 11/03/21 06:47 11/03/21 06:47 Labs: Laboratory Results - last 24 hr 11/02/21 11/02/21 11/02/21 17:13 17:13 17:13 WBC Cancelled RBC Cancelled Hgb 9.6 L Cancelled Hct 31.7 L Cancelled MCV Cancelled MCH Cancelled MCHC Cancelled RDW Cancelled Plt Count Cancelled MPV Cancelled Immature Gran % (Auto) Cancelled Neut % (Auto) Cancelled Lymph % (Auto) Cancelled [place] % (Auto) Cancelled Eos % (Auto) Cancelled Baso % (Auto) Cancelled Lymph # (Auto) Cancelled [place] # (Auto) Cancelled Eos # (Auto) Cancelled Baso # (Auto) Cancelled Abs Immat Gran (auto) Cancelled Absolute Neuts (auto) Cancelled Absolute Nucleated RBC Cancelled Nucleated RBC % (auto) Cancelled Neutrophils % (Manual) Band Neutrophils % Monocytes % (Manual) Metamyelocytes % Abs Neuts (Manual) Monocytes # (Manual) Metamyelocytes # Toxic Vacuolation Dohle Bodies Platelet Estimate Plt Morphology Comment RBC Morphology Macrocytosis Ovalocytes Smear Tech's Comments Sodium Potassium Chloride Carbon Dioxide Anion Gap BUN Creatinine Estim Creat Clear Calc Estimated GFR Random Glucose Lactic Acid 3.3 H* Lactic Acid F/U @ 2Hr Lactic Acid F/U @ 4Hr Calcium Total Bilirubin Direct Bilirubin AST ALT Alkaline Phosphatase Total Protein Albumin Urine Color Urine Appearance Urine pH Ur Specific [place] Urine Protein Urine Glucose (UA) Urine Ketones Urine Blood Urine Nitrite Ur Leukocyte Esterase Urine RBC Urine WBC Ur Squamous Epith Cells Urine Bacteria Ur Random Sodium C. difficile Tox B Gene C. difficile Toxin A&B C. difficile Interpret COVID-19 ([facility]) COVID-19 Clin Com 11/02/21 11/02/21 11/02/21 18:55 20:29 22:15 WBC RBC Hgb Hct MCV MCH MCHC RDW Plt Count MPV Immature Gran % (Auto) Neut % (Auto) Lymph % (Auto) [place] % (Auto) Eos % (Auto) Baso % (Auto) Lymph # (Auto) [place] # (Auto) Eos # (Auto) Baso # (Auto) Abs Immat Gran (auto) Absolute Neuts (auto) Absolute Nucleated RBC Nucleated RBC % (auto) Neutrophils % (Manual) Band Neutrophils % Monocytes % (Manual) Metamyelocytes % Abs Neuts (Manual) Monocytes # (Manual) Metamyelocytes # Toxic Vacuolation Dohle Bodies Platelet Estimate Plt Morphology Comment RBC Morphology Macrocytosis Ovalocytes Smear Tech's Comments Sodium Potassium Chloride Carbon Dioxide Anion Gap BUN Creatinine Estim Creat Clear Calc Estimated GFR Random Glucose Lactic Acid 3.5 H* Lactic Acid F/U @ 2Hr Lactic Acid F/U @ 4Hr Calcium Total Bilirubin Direct Bilirubin AST ALT Alkaline Phosphatase Total Protein Albumin Urine Color BROWN Urine Appearance CLOUDY Urine pH 7.0 Ur Specific [place] 1.020 Urine Protein 3+ H Urine Glucose (UA) 100 H Urine Ketones NEG Urine Blood 3+ H Urine Nitrite POS H Ur Leukocyte Esterase 2+ H Urine RBC TNTC H Urine WBC 10-14 H Ur Squamous Epith Cells 1+ Urine Bacteria 2+ Ur Random Sodium C. difficile Tox B Gene C. difficile Toxin A&B C. difficile Interpret COVID-19 ([facility]) Negative COVID-19 Clin Com See Note 11/02/21 11/02/21 11/02/21 22:40 22:40 22:40 WBC 15.9 H RBC 2.90 L Hgb 8.9 L Hct 29.6 L MCV 102.1 H MCH 30.7 MCHC 30.1 L RDW 14.6 Plt Count 255 MPV 9.4 Immature Gran % (Auto) 1.1 H Neut % (Auto) 97.3 H Lymph % (Auto) 0.5 L [place] % (Auto) 1.0 L Eos % (Auto) 0.0 Baso % (Auto) 0.1 Lymph # (Auto) 0.1 L [place] # (Auto) 0.2 Eos # (Auto) 0.0 Baso # (Auto) 0.0 Abs Immat Gran (auto) 0.17 H Absolute Neuts (auto) 15.5 H Absolute Nucleated RBC 0.000 Nucleated RBC % (auto) 0.0 Neutrophils % (Manual) Band Neutrophils % Monocytes % (Manual) Metamyelocytes % Abs Neuts (Manual) Monocytes # (Manual) Metamyelocytes # Toxic Vacuolation Dohle Bodies Platelet Estimate Plt Morphology Comment RBC Morphology Macrocytosis Ovalocytes Smear Tech's Comments VERIFIED Sodium 144 Potassium 3.7 Chloride 111 H Carbon Dioxide 22 Anion Gap 15 BUN 22 H Creatinine 1.00 Estim Creat Clear Calc 41.0 Estimated GFR 55 Random Glucose 135 H Lactic Acid Lactic Acid F/U @ 2Hr 3.9 H* Lactic Acid F/U @ 4Hr Calcium 8.3 L Total Bilirubin 0.3 Direct Bilirubin 0.2 AST 174 H ALT 91 H Alkaline Phosphatase 99 Total Protein 5.9 L Albumin 2.9 L Urine Color Urine Appearance Urine pH Ur Specific [place] Urine Protein Urine Glucose (UA) Urine Ketones Urine Blood Urine Nitrite Ur Leukocyte Esterase Urine RBC Urine WBC Ur Squamous Epith Cells Urine Bacteria Ur Random Sodium C. difficile Tox B Gene C. difficile Toxin A&B C. difficile Interpret COVID-19 ([facility]) COVID-19 Clin Com 11/03/21 11/03/21 11/03/21 00:56 06:47 06:47 WBC 23.0 H RBC 2.84 L Hgb 8.8 L Hct 28.4 L MCV 100.0 H MCH 31.0 MCHC 31.0 RDW 14.6 Plt Count 249 MPV 9.8 Immature Gran % (Auto) Cancelled Neut % (Auto) Cancelled Lymph % (Auto) Cancelled [place] % (Auto) Cancelled Eos % (Auto) Cancelled Baso % (Auto) Cancelled Lymph # (Auto) Cancelled [place] # (Auto) Cancelled Eos # (Auto) Cancelled Baso # (Auto) Cancelled Abs Immat Gran (auto) Cancelled Absolute Neuts (auto) Cancelled Absolute Nucleated RBC 0.000 Nucleated RBC % (auto) 0.0 Neutrophils % (Manual) 69 Band Neutrophils % 26 H Monocytes % (Manual) 3 Metamyelocytes % 2 Abs Neuts (Manual) 21.9 H Monocytes # (Manual) 0.7 Metamyelocytes # 0.5 Toxic Vacuolation PRESENT Dohle Bodies PRESENT Platelet Estimate NORMAL Plt Morphology Comment NORMAL RBC Morphology NOTED Macrocytosis 1+ (5-14) Ovalocytes 1+ (5-14) Smear Tech's Comments Sodium 143 Potassium 3.9 Chloride 112 H Carbon Dioxide 21 L Anion Gap 14 BUN Creatinine 1.13 Estim Creat Clear Calc 36.3 Estimated GFR 47 Random Glucose Lactic Acid Lactic Acid F/U @ 2Hr Lactic Acid F/U @ 4Hr 4.8 H* Calcium Total Bilirubin Direct Bilirubin AST ALT Alkaline Phosphatase Total Protein Albumin Urine Color Urine Appearance Urine pH Ur Specific [place] Urine Protein Urine Glucose (UA) Urine Ketones Urine Blood Urine Nitrite Ur Leukocyte Esterase Urine RBC Urine WBC Ur Squamous Epith Cells Urine Bacteria Ur Random Sodium C. difficile Tox B Gene C. difficile Toxin A&B C. difficile Interpret COVID-19 ([facility]) COVID-19 Clin Com 11/03/21 11/03/21 11/03/21 06:47 09:47 09:47 WBC RBC Hgb Hct MCV MCH MCHC RDW Plt Count MPV Immature Gran % (Auto) Neut % (Auto) Lymph % (Auto) [place] % (Auto) Eos % (Auto) Baso % (Auto) Lymph # (Auto) [place] # (Auto) Eos # (Auto) Baso # (Auto) Abs Immat Gran (auto) Absolute Neuts (auto) Absolute Nucleated RBC Nucleated RBC % (auto) Neutrophils % (Manual) Band Neutrophils % Monocytes % (Manual) Metamyelocytes % Abs Neuts (Manual) Monocytes # (Manual) Metamyelocytes # Toxic Vacuolation Dohle Bodies Platelet Estimate Plt Morphology Comment RBC Morphology Macrocytosis Ovalocytes Smear Tech's Comments Sodium Potassium Chloride Carbon Dioxide Anion Gap BUN Creatinine Estim Creat Clear Calc Estimated GFR Random Glucose Lactic Acid 2.7 H* Cancelled Lactic Acid F/U @ 2Hr 4.1 H* Lactic Acid F/U @ 4Hr Calcium Total Bilirubin Direct Bilirubin AST ALT Alkaline Phosphatase Total Protein Albumin Urine Color Urine Appearance Urine pH Ur Specific [place] Urine Protein Urine Glucose (UA) Urine Ketones Urine Blood Urine Nitrite Ur Leukocyte Esterase Urine RBC Urine WBC Ur Squamous Epith Cells Urine Bacteria Ur Random Sodium C. difficile Tox B Gene C. difficile Toxin A&B C. difficile Interpret COVID-19 ([facility]) COVID-19 [employer] 11/03/21 11/03/21 11/03/21 12:27 13:59 Unknown WBC RBC Hgb Hct MCV MCH MCHC RDW Plt Count MPV Immature Gran % (Auto) Neut % (Auto) Lymph % (Auto) [place] % (Auto) Eos % (Auto) Baso % (Auto) Lymph # (Auto) [place] # (Auto) Eos # (Auto) Baso # (Auto) Abs Immat Gran (auto) Absolute Neuts (auto) Absolute Nucleated RBC Nucleated RBC % (auto) Neutrophils % (Manual) Band Neutrophils % Monocytes % (Manual) Metamyelocytes % Abs Neuts (Manual) Monocytes # (Manual) Metamyelocytes # Toxic Vacuolation Dohle Bodies Platelet Estimate Plt Morphology Comment RBC Morphology Macrocytosis Ovalocytes Smear Tech's Comments Sodium Potassium Chloride Carbon Dioxide Anion Gap BUN Creatinine Estim Creat Clear Calc Estimated GFR Random Glucose Lactic Acid Lactic Acid F/U @ 2Hr Lactic Acid F/U @ 4Hr 3.1 H* Calcium Total Bilirubin Direct Bilirubin AST ALT Alkaline Phosphatase Total Protein Albumin Urine Color Urine Appearance Urine pH Ur Specific [place] Urine Protein Urine Glucose (UA) Urine Ketones Urine Blood Urine Nitrite Ur Leukocyte Esterase Urine RBC Urine WBC Ur Squamous Epith Cells Urine Bacteria Ur Random Sodium 73.0 C. difficile Tox B Gene POSITIVE A* C. difficile Toxin A&B Negative C. difficile Interpret SEE NOTE COVID-19 ([facility]) COVID-19 [facility] Com Progress Note: A&P Assessment and plan (1) Bilateral renal stones: Status: Acute (2) Sepsis: Status: Acute (3) Multiple sclerosis: Status: Acute Assessment and Plan: Urosepsis following procedure in setting of deconditioning secondary to longstanding multiple sclerosis Currently undergoing pressure support in ICU Fall Risk Details Current Medications: Current Medications Lactated Ringer's (Lr) 1,000 mls @ 100 mls/hr IVCONT .Q10H [facility] Last Infusion: 11/03/21 14:18 Dose: Infused Documented by: Cefepime HCl 1 gm/ Sodium (Chloride) 50 mls @ 100 mls/hr IV Q12H [facility] Last Infusion: 11/03/21 09:49 Dose: Infused Documented by: Vancomycin HCl 1,000 mg/ (Sodium Chloride) 270 mls @ 270 mls/hr IV Q24H [facility] Phenylephrine HCl 20 mg/ (Sodium Chloride) 252 mls @ 0 mls/hr IVCONT .Q0M [facility]; Protocol Last Titration: 11/03/21 14:32 Dose: 1.8 mcg/kg/min, 69.54 mls/hr Documented by: Modafinil (Modafinil 100 Mg Tablet) 100 mg PO BID@0800,1200 [facility] Last Admin: 11/03/21 11:19 Dose: 100 mg Documented by: Ondansetron HCl (Ondansetron Odt 8 Mg Tab.Rapdis) 8 mg TRANSLINGU Q8H PRN PRN Reason: Nausea and Vomiting Time Spent With Patient Time: Total time spent is greater than 50% in coordination of care (as documented) at patient's floor/unit and/or counseling patient: Time with patient: 15 - 24 minutes
[2021-11-03 16:17] LABS: Hematocrit 23.9 % (37.0-47.0); Hemoglobin 7.5 g/dl (12.0-16.0); Mean Corpuscular HGB Conc 31.4 g/dl (31.0-35.0); Mean Corpuscular Hemoglobin 31.4 pg (27.0-33.0); Mean Platelet Volume 9.8 fL (9.4-12.3); Platelet Count 224 X10*3/uL (160-400); Red Blood Count 2.39 X10*6/uL (4.20-5.50); Red Cell Distribution Width 14.6 % (11.0-16.0); White Blood Count 29.7 X10*3/uL (4.8-10.8)
[2021-11-03 16:28] LABS: Lactic Acid 0.9 mmol/L (0.5-2.0)
[2021-11-03] MEDS: Dextrose 5 % and 0.45 % NaCl 1,000 ML 50 ML IVCONT (16:35)
[2021-11-03 16:38] LABS: B Type Natriuretic Peptide 2061 pg/mL (<100)
[2021-11-03 16:41] LABS: Albumin Level 2.7 g/dL (3.5-5.0); Anion Gap 10 (12-20); Blood Urea Nitrogen 23 mg/dL (9-16); Calcium 7.3 mg/dL (8.4-10.2); Carbon Dioxide 20 mmol/L (22-29); Chloride 116 mmol/L (96-108); Creatinine Clr Calc Pharmacy 46.6; Estimated Glomerular Filt Rate > 60; Glucose Random 77 mg/dL (60-115); Magnesium 1.4 mg/dL (1.6-2.6); Phosphorus 2.2 mg/dL (2.7-4.5); Potassium 3.5 mmol/L (3.3-5.1); Sodium 142 mmol/L (135-145)
--- NOTE | 2021-11-03 16:48 | PM.CCPN ---
Subjective Subjective Date of Service: 11/03/21 Interval History: Mrs. tSreet was transferred to the ICU this afternoon with septic shock. The patient is a 71-year-old woman with past medical history of very disabling multiple sclerosis.? She also has history of bilateral renal stones, neurogenic urinary bladder, and recurrent UTI.? Had colon cancer surgery a few years ago.? Pt weighs 51kg.? She lives with her and her son.? She gets around in a wheelchair.? She does not walk.? Her arms are contracted. Yesterday she underwent elective cystoscopy, left retrograde ureteroscopy, and laser lithotripsy with stent in the OR here w Dr. Majano.? Postprocedure the patient became tachycardic, hypotensive, w lactic acidosis.? Cortes bag showed gross hematuria.? She was admitted to Medicine for treatment of sepsis.? She had been given cefazolin preoperatively, and that was continued postoperatively. This morning, the patient was noted to be tachycardic to 150s, BP dropped in the 80s, altho afebrile.? Had abdom pain with more tense on exam and elevated lactate.? The BP and lactate did not improve with 2L crystalloid.? She was started on broad-spectrum antibiotics, I was called, and she was booked for a CT scan.? I went up to see her on the 4th floor.? Her mental status was a bit wifty, she was mildly tachypneic with mildly incr WOB, and she looked septic.? I arranged for tx to ICU via CT scan. By the time she arrived in ICU, she looked much better.? Mental status normalized.? HR down to 140, even 130s.? BP 106/46.? RR 19-20, Sat 95% room air.? Temp 98.7.? Good color.? 3cm JVD at 30?.? Chest CTA. ?Regular rate rhythm, tachy, no murmur or gallops.? Abdomen is nondistended and quite firm, question guarding, but the patient denies pain there is no rebound tenderness.? She has good bowel sounds.? Both arms are contracted. LABORATORY DATA:? Below.? Notably, white count this morning up to 23, from 15 last night.? Creatinine 1.1 compared with 1.0 last night, and baseline around 0.7.? Lactic acid this morning was 2.7 than at 09:00 was 4.1 and then by noon was down to 3.1.? Albumin level last night was 2.9. Urinalysis sent last night showed 10-14 wbc's, rbc's were TNTC, there was 2+ leukocyte esterase, and 2+ urine bacteria.? Blood cultures from last night still negative.? Blood cultures were redrawn this morning. My echocardiogram at the bedside forr hemodynamic monitorin. Wall thickness probably normal. 2. LV cavity size is normal or low.? Evaluation of contractility is limited by the fast heart rate of 150.? Nevertheless, LV systolic function was probably normal.? No RWMAs noted. 3. RV size ? top normal, but RV:LV cavity ratio looks .at least 1.0 4. LA, RA not adequately assessed. 5. AoV morphologically normal with no , maybe trace AI by color lloyd. 6. MV morphologically normal with 1+ MR by color lloyd. 7. TV morphologically normal with 2-3+ TR by color lloyd, with CWD jet measuring 3.2m/sec, or gradient 41mm. 8. IVC measured 1.3cm with < 50% insp collapse. Est CVP 8cm.? Est RVSP 49mm. ABD CT:? KIDNEYS AND URETERS: There are multiple bilateral renal stones. Largest right stone conforms to upper pole calyces measuring approximately 1.5 cm. There are small stones or stone fragments in the left renal pelvis. There are small stones in the lower pole, largest measuring 3 mm. There is a left internal ureteral stent. Proximal pigtail is in the upper pole calyx. There is no hydronephrosis. There is no perinephric collection or hematoma. There is a small amount of air seen in the left renal collecting system. Left internal ureteral stent in satisfactory position. No left ureteral stone is seen.? Bladder is empty.? Small amount of ascites in the pelvis. GASTROINTESTINAL TRACT: There are postsurgical changes following right colectomy. There are fluid-filled loops of small bowel probably representing an ileus. There is a small amount of ascites in the pelvis. IMPRESSION: Most unfortunate woman with disabling multiple sclerosis and nephrolithiasis, with septic shock following cystoscopy, ureteroscopy, and laser lithotripsy.? Abdominal exam is concerning to me, not withstanding her CT scan.? I would like general surgery to examine her.? We?ll continue current antibiotics.? I think she?s adequately resuscitated.? Will d/w Dr. Majano. Critical care time (includ full chart rev, hosp course summary, mult d/w Dr. Majano, d/w Dr. Baker, search for IV access): 100+. Critical Care Time (minutes): 100 Physical Exam Vital Signs: Vital Signs: Last Vital Signs Temp 98.7 F 11/03/21 13:55 Pulse 113 H 11/03/21 16:00 Resp 14 11/03/21 16:00 BP 98/40 L 11/03/21 16:28 Pulse Ox 96 11/03/21 16:00 BMI result Body Mass Index 17.6 Objective Data Labs CBC & Chem 7: 11/03/21 16:07 11/03/21 16:07 Labs: Laboratory Results - last 24 hr 11/02/21 11/02/21 11/02/21 17:13 17:13 17:13 WBC Cancelled RBC Cancelled Hgb 9.6 L Cancelled Hct 31.7 L Cancelled MCV Cancelled MCH Cancelled MCHC Cancelled RDW Cancelled Plt Count Cancelled MPV Cancelled Immature Gran % (Auto) Cancelled Neut % (Auto) Cancelled Lymph % (Auto) Cancelled [place] % (Auto) Cancelled Eos % (Auto) Cancelled Baso % (Auto) Cancelled Lymph # (Auto) Cancelled [place] # (Auto) Cancelled Eos # (Auto) Cancelled Baso # (Auto) Cancelled Abs Immat Gran (auto) Cancelled Absolute Neuts (auto) Cancelled Absolute Nucleated RBC Cancelled Nucleated RBC % (auto) Cancelled Neutrophils % (Manual) Band Neutrophils % Monocytes % (Manual) Metamyelocytes % Abs Neuts (Manual) Monocytes # (Manual) Metamyelocytes # Toxic Vacuolation Dohle Bodies Platelet Estimate Plt Morphology Comment RBC Morphology Macrocytosis Ovalocytes Smear Tech's Comments Sodium Potassium Chloride Carbon Dioxide Anion Gap BUN Creatinine Estim Creat Clear Calc Estimated GFR Random Glucose Lactic Acid 3.3 H* Lactic Acid F/U @ 2Hr Lactic Acid F/U @ 4Hr Calcium Phosphorus Magnesium Total Bilirubin Direct Bilirubin AST ALT Alkaline Phosphatase B-Natriuretic Peptide Total Protein Albumin Urine Color Urine Appearance Urine pH Ur Specific [place] Urine Protein Urine Glucose (UA) Urine Ketones Urine Blood Urine Nitrite Ur Leukocyte Esterase Urine RBC Urine WBC Ur Squamous Epith Cells Urine Bacteria Ur Random Sodium C. difficile Tox B Gene C. difficile Toxin A&B C. difficile Interpret COVID-19 (GISELL) COVID-19 [facility] 11/02/21 11/02/21 11/02/21 18:55 20:29 22:15 WBC RBC Hgb Hct MCV MCH MCHC RDW Plt Count MPV Immature Gran % (Auto) Neut % (Auto) Lymph % (Auto) [place] % (Auto) Eos % (Auto) Baso % (Auto) Lymph # (Auto) [place] # (Auto) Eos # (Auto) Baso # (Auto) Abs Immat Gran (auto) Absolute Neuts (auto) Absolute Nucleated RBC Nucleated RBC % (auto) Neutrophils % (Manual) Band Neutrophils % Monocytes % (Manual) Metamyelocytes % Abs Neuts (Manual) Monocytes # (Manual) Metamyelocytes # Toxic Vacuolation Dohle Bodies Platelet Estimate Plt Morphology Comment RBC Morphology Macrocytosis Ovalocytes Smear Tech's Comments Sodium Potassium Chloride Carbon Dioxide Anion Gap BUN Creatinine Estim Creat Clear Calc Estimated GFR Random Glucose Lactic Acid 3.5 H* Lactic Acid F/U @ 2Hr Lactic Acid F/U @ 4Hr Calcium Phosphorus Magnesium Total Bilirubin Direct Bilirubin AST ALT Alkaline Phosphatase B-Natriuretic Peptide Total Protein Albumin Urine Color BROWN Urine Appearance CLOUDY Urine pH 7.0 Ur Specific [place] 1.020 Urine Protein 3+ H Urine Glucose (UA) 100 H Urine Ketones NEG Urine Blood 3+ H Urine Nitrite POS H Ur Leukocyte Esterase 2+ H Urine RBC TNTC H Urine WBC 10-14 H Ur Squamous Epith Cells 1+ Urine Bacteria 2+ Ur Random Sodium C. difficile Tox B Gene C. difficile Toxin A&B C. difficile Interpret COVID-19 (GISELL) Negative COVID-19 [employer] See Note 11/02/21 11/02/21 11/02/21 22:40 22:40 22:40 WBC 15.9 H RBC 2.90 L Hgb 8.9 L Hct 29.6 L MCV 102.1 H MCH 30.7 MCHC 30.1 L RDW 14.6 Plt Count 255 MPV 9.4 Immature Gran % (Auto) 1.1 H Neut % (Auto) 97.3 H Lymph % (Auto) 0.5 L [place] % (Auto) 1.0 L Eos % (Auto) 0.0 Baso % (Auto) 0.1 Lymph # (Auto) 0.1 L [place] # (Auto) 0.2 Eos # (Auto) 0.0 Baso # (Auto) 0.0 Abs Immat Gran (auto) 0.17 H Absolute Neuts (auto) 15.5 H Absolute Nucleated RBC 0.000 Nucleated RBC % (auto) 0.0 Neutrophils % (Manual) Band Neutrophils % Monocytes % (Manual) Metamyelocytes % Abs Neuts (Manual) Monocytes # (Manual) Metamyelocytes # Toxic Vacuolation Dohle Bodies Platelet Estimate Plt Morphology Comment RBC Morphology Macrocytosis Ovalocytes Smear Tech's Comments VERIFIED Sodium 144 Potassium 3.7 Chloride 111 H Carbon Dioxide 22 Anion Gap 15 BUN 22 H Creatinine 1.00 Estim Creat Clear Calc 41.0 Estimated GFR 55 Random Glucose 135 H Lactic Acid Lactic Acid F/U @ 2Hr 3.9 H* Lactic Acid F/U @ 4Hr Calcium 8.3 L Phosphorus Magnesium Total Bilirubin 0.3 Direct Bilirubin 0.2 AST 174 H ALT 91 H Alkaline Phosphatase 99 B-Natriuretic Peptide Total Protein 5.9 L Albumin 2.9 L Urine Color Urine Appearance Urine pH Ur Specific [place] Urine Protein Urine Glucose (UA) Urine Ketones Urine Blood Urine Nitrite Ur Leukocyte Esterase Urine RBC Urine WBC Ur Squamous Epith Cells Urine Bacteria Ur Random Sodium C. difficile Tox B Gene C. difficile Toxin A&B C. difficile Interpret COVID-19 (GISELL) COVID-19 Clin Com 11/03/21 11/03/21 11/03/21 00:56 06:47 06:47 WBC 23.0 H RBC 2.84 L Hgb 8.8 L Hct 28.4 L MCV 100.0 H MCH 31.0 MCHC 31.0 RDW 14.6 Plt Count 249 MPV 9.8 Immature Gran % (Auto) Cancelled Neut % (Auto) Cancelled Lymph % (Auto) Cancelled [place] % (Auto) Cancelled Eos % (Auto) Cancelled Baso % (Auto) Cancelled Lymph # (Auto) Cancelled [place] # (Auto) Cancelled Eos # (Auto) Cancelled Baso # (Auto) Cancelled Abs Immat Gran (auto) Cancelled Absolute Neuts (auto) Cancelled Absolute Nucleated RBC 0.000 Nucleated RBC % (auto) 0.0 Neutrophils % (Manual) 69 Band Neutrophils % 26 H Monocytes % (Manual) 3 Metamyelocytes % 2 Abs Neuts (Manual) 21.9 H Monocytes # (Manual) 0.7 Metamyelocytes # 0.5 Toxic Vacuolation PRESENT Dohle Bodies PRESENT Platelet Estimate NORMAL Plt Morphology Comment NORMAL RBC Morphology NOTED Macrocytosis 1+ (5-14) Ovalocytes 1+ (5-14) Smear Tech's Comments Sodium 143 Potassium 3.9 Chloride 112 H Carbon Dioxide 21 L Anion Gap 14 BUN Creatinine 1.13 Estim Creat Clear Calc 36.3 Estimated GFR 47 Random Glucose Lactic Acid Lactic Acid F/U @ 2Hr Lactic Acid F/U @ 4Hr 4.8 H* Calcium Phosphorus Magnesium Total Bilirubin Direct Bilirubin AST ALT Alkaline Phosphatase B-Natriuretic Peptide Total Protein Albumin Urine Color Urine Appearance Urine pH Ur Specific [place] Urine Protein Urine Glucose (UA) Urine Ketones Urine Blood Urine Nitrite Ur Leukocyte Esterase Urine RBC Urine WBC Ur Squamous Epith Cells Urine Bacteria Ur Random Sodium C. difficile Tox B Gene C. difficile Toxin A&B C. difficile Interpret COVID-19 (GISELL) COVID-19 Clin Com 11/03/21 11/03/21 11/03/21 06:47 09:47 09:47 WBC RBC Hgb Hct MCV MCH MCHC RDW Plt Count MPV Immature Gran % (Auto) Neut % (Auto) Lymph % (Auto) [place] % (Auto) Eos % (Auto) Baso % (Auto) Lymph # (Auto) [place] # (Auto) Eos # (Auto) Baso # (Auto) Abs Immat Gran (auto) Absolute Neuts (auto) Absolute Nucleated RBC Nucleated RBC % (auto) Neutrophils % (Manual) Band Neutrophils % Monocytes % (Manual) Metamyelocytes % Abs Neuts (Manual) Monocytes # (Manual) Metamyelocytes # Toxic Vacuolation Dohle Bodies Platelet Estimate Plt Morphology Comment RBC Morphology Macrocytosis Ovalocytes Smear Tech's Comments Sodium Potassium Chloride Carbon Dioxide Anion Gap BUN Creatinine Estim Creat Clear Calc Estimated GFR Random Glucose Lactic Acid 2.7 H* Cancelled Lactic Acid F/U @ 2Hr 4.1 H* Lactic Acid F/U @ 4Hr Calcium Phosphorus Magnesium Total Bilirubin Direct Bilirubin AST ALT Alkaline Phosphatase B-Natriuretic Peptide Total Protein Albumin Urine Color Urine Appearance Urine pH Ur Specific [place] Urine Protein Urine Glucose (UA) Urine Ketones Urine Blood Urine Nitrite Ur Leukocyte Esterase Urine RBC Urine WBC Ur Squamous Epith Cells Urine Bacteria Ur Random Sodium C. difficile Tox B Gene C. difficile Toxin A&B C. difficile Interpret COVID-19 (GISELL) COVID-19 Clin Com 11/03/21 11/03/21 11/03/21 12:27 13:59 16:07 WBC 29.7 H RBC 2.39 L Hgb 7.5 L Hct 23.9 L MCV 100.0 H MCH 31.4 MCHC 31.4 RDW 14.6 Plt Count 224 MPV 9.8 Immature Gran % (Auto) Neut % (Auto) Lymph % (Auto) [place] % (Auto) Eos % (Auto) Baso % (Auto) Lymph # (Auto) [place] # (Auto) Eos # (Auto) Baso # (Auto) Abs Immat Gran (auto) Absolute Neuts (auto) Absolute Nucleated RBC 0.000 Nucleated RBC % (auto) 0.0 Neutrophils % (Manual) Band Neutrophils % Monocytes % (Manual) Metamyelocytes % Abs Neuts (Manual) Monocytes # (Manual) Metamyelocytes # Toxic Vacuolation Dohle Bodies Platelet Estimate Plt Morphology Comment RBC Morphology Macrocytosis Ovalocytes Smear Tech's Comments Sodium Potassium Chloride Carbon Dioxide Anion Gap BUN Creatinine Estim Creat Clear Calc Estimated GFR Random Glucose Lactic Acid Lactic Acid F/U @ 2Hr Lactic Acid F/U @ 4Hr 3.1 H* Calcium Phosphorus Magnesium Total Bilirubin Direct Bilirubin AST ALT Alkaline Phosphatase B-Natriuretic Peptide Total Protein Albumin Urine Color Urine Appearance Urine pH Ur Specific [place] Urine Protein Urine Glucose (UA) Urine Ketones Urine Blood Urine Nitrite Ur Leukocyte Esterase Urine RBC Urine WBC Ur Squamous Epith Cells Urine Bacteria Ur Random Sodium 73.0 C. difficile Tox B Gene C. difficile Toxin A&B C. difficile Interpret COVID-19 (GISELL) COVID-19 Clin Com 11/03/21 11/03/21 11/03/21 16:07 16:07 16:07 WBC RBC Hgb Hct MCV MCH MCHC RDW Plt Count MPV Immature Gran % (Auto) Neut % (Auto) Lymph % (Auto) [place] % (Auto) Eos % (Auto) Baso % (Auto) Lymph # (Auto) [place] # (Auto) Eos # (Auto) Baso # (Auto) Abs Immat Gran (auto) Absolute Neuts (auto) Absolute Nucleated RBC Nucleated RBC % (auto) Neutrophils % (Manual) Band Neutrophils % Monocytes % (Manual) Metamyelocytes % Abs Neuts (Manual) Monocytes # (Manual) Metamyelocytes # Toxic Vacuolation Dohle Bodies Platelet Estimate Plt Morphology Comment RBC Morphology Macrocytosis Ovalocytes Smear Tech's Comments Sodium 142 Potassium 3.5 Chloride 116 H Carbon Dioxide 20 L Anion Gap 10 L BUN 23 H Creatinine 0.88 Estim Creat Clear Calc 46.6 Estimated GFR > 60 Random Glucose 77 Lactic Acid 0.9 Lactic Acid F/U @ 2Hr Lactic Acid F/U @ 4Hr Calcium 7.3 L D Phosphorus 2.2 L Magnesium 1.4 L* Total Bilirubin Direct Bilirubin AST ALT Alkaline Phosphatase B-Natriuretic Peptide 2061 H Total Protein Albumin 2.7 L Urine Color Urine Appearance Urine pH Ur Specific [place] Urine Protein Urine Glucose (UA) Urine Ketones Urine Blood Urine Nitrite Ur Leukocyte Esterase Urine RBC Urine WBC Ur Squamous Epith Cells Urine Bacteria Ur Random Sodium C. difficile Tox B Gene C. difficile Toxin A&B C. difficile Interpret COVID-19 (GISELL) COVID-19 Clin Com 11/03/21 Unknown WBC RBC Hgb Hct MCV MCH MCHC RDW Plt Count MPV Immature Gran % (Auto) Neut % (Auto) Lymph % (Auto) [place] % (Auto) Eos % (Auto) Baso % (Auto) Lymph # (Auto) [place] # (Auto) Eos # (Auto) Baso # (Auto) Abs Immat Gran (auto) Absolute Neuts (auto) Absolute Nucleated RBC Nucleated RBC % (auto) Neutrophils % (Manual) Band Neutrophils % Monocytes % (Manual) Metamyelocytes % Abs Neuts (Manual) Monocytes # (Manual) Metamyelocytes # Toxic Vacuolation Dohle Bodies Platelet Estimate Plt Morphology Comment RBC Morphology Macrocytosis Ovalocytes Smear Tech's Comments Sodium Potassium Chloride Carbon Dioxide Anion Gap BUN Creatinine Estim Creat Clear Calc Estimated GFR Random Glucose Lactic Acid Lactic Acid F/U @ 2Hr Lactic Acid F/U @ 4Hr Calcium Phosphorus Magnesium Total Bilirubin Direct Bilirubin AST ALT Alkaline Phosphatase B-Natriuretic Peptide Total Protein Albumin Urine Color Urine Appearance Urine pH Ur Specific [place] Urine Protein Urine Glucose (UA) Urine Ketones Urine Blood Urine Nitrite Ur Leukocyte Esterase Urine RBC Urine WBC Ur Squamous Epith Cells Urine Bacteria Ur Random Sodium C. difficile Tox B Gene POSITIVE A* C. difficile Toxin A&B Negative C. difficile Interpret SEE NOTE COVID-19 (GISELL) COVID-19 Clin Com Microbiology Microbiology Results: Microbiology 11/02/21 19:10 Blood - Venous Blood Culture - Preliminary Prelim: GNR Gram Stain only 11/02/21 19:10 Blood - Venous Blood Culture - Preliminary Prelim: GNR Gram Stain only Quality Stroke Does the patient have a stroke diagnosis?: No VTE Prior VTE?: No VTE Risk Level:: Medical - moderate - high VTE Device Contraindication: N/A - Device Ordered VTE Drug Contraindication: N/A - Med Ordered Critical Care Time Critical Care Time (minutes): 90
[2021-11-03 16:51] LABS: Cortisol Random 41.2 ug/dL
[2021-11-03 16:52] LABS: Procalcitonin 93.98 ng/mL
[2021-11-03] MEDS: Magnesium Sulfate/H2O 2 GM/50 ML PIGGYBACK IV (17:39)
[2021-11-03] MEDS: Potassium Chloride/H20 20 MEQ/100 ML PIGGYBACK 50 MEQ IV (18:10)
[2021-11-03] MEDS: Potassium Phosphate/NS 15 MMOL/250 ML PLAST..BAG 62.5 MMOL IV (20:11)
[2021-11-04] VITALS (27 sets, daily range): BP systolic 86–131; BP diastolic 37–63; PULSE 87–150; RESP 15–27; TEMP 36.8–37.6; O2SAT 93–100
[2021-11-04] MEDS: Esmolol HCl/NaCl Iso 2,500 MG/250 ML IV.SOLN 15.33 MG IVCONT (01:27)
--- NOTE | 2021-11-04 03:47 | PC.NURSE ---
Pt A&Ox4. Afebrile. NSR/ST on tele, HR up to 150s, c/o palpitations- new order for esmolol drip. Levophed drip titrated to maintain MAP > 65. Cortes in place, small shreds noted, UOP approx 30 ml/hr. Skin intact- contracted/rigid, repositioned q2hr and per pt request. Pt aware of plan of care. Medicated per emar.
[2021-11-04 05:41] LABS: Hematocrit 23.8 % (37.0-47.0); Hemoglobin 7.3 g/dl (12.0-16.0); Mean Corpuscular HGB Conc 30.7 g/dl (31.0-35.0); Mean Corpuscular Hemoglobin 30.7 pg (27.0-33.0); Mean Platelet Volume 10.1 fL (9.4-12.3); Platelet Count 178 X10*3/uL (160-400); Red Blood Count 2.38 X10*6/uL (4.20-5.50)
[2021-11-04 05:50] LABS: Lactic Acid 1.5 mmol/L (0.5-2.0)
[2021-11-04 05:53] LABS: White Blood Count 30.7 X10*3/uL (4.8-10.8)
[2021-11-04 05:57] LABS: Anion Gap 13 (12-20); Blood Urea Nitrogen 26 mg/dL (9-16); Calcium 7.2 mg/dL (8.4-10.2); Carbon Dioxide 15 mmol/L (22-29); Chloride 117 mmol/L (96-108); Creatinine Clr Calc Pharmacy 45.1; Estimated Glomerular Filt Rate > 60; Glucose Random 124 mg/dL (60-115); Magnesium 1.9 mg/dL (1.6-2.6); Phosphorus 3.2 mg/dL (2.7-4.5); Potassium 4.2 mmol/L (3.3-5.1); Sodium 141 mmol/L (135-145)
[2021-11-04 05:59] LABS: B Type Natriuretic Peptide 2044 pg/mL (<100)
[2021-11-04 06:18] LABS: Band Neutrophils Percent 18 % (3-5); Lymphocytes Absolute Manual 0.3 X10*3/uL (1.2-4.9); Lymphocytes Percent Manual 1 % (20-40); Metamyelocytes Absolute 0.3 X10*3/uL; Metamyelocytes Percent 1 %; Monocytes Absolute Manual 0.9 X10*3/uL (0.1-1.2); Monocytes Percent Manual 3 % (2-11); Myelocytes Absolute 0.6 X10*/uL; Myelocytes Percent 2 %; Neutrophils Absolute Manual 28.6 X10*3/uL (2.0-8.3); Neutrophils Percent Manual 75 % (45-73)
[2021-11-04 06:19] LABS: Acanthocytes 1+ (0-2) /OIF; Macrocytosis 1+ (5-14) /OIF; Ovalocytes 1+ (5-14) /OIF; RBC Morphology NOTED
[2021-11-04 06:20] LABS: Burr Cells 3+ (>5) /OIF; Dohle Bodies PRESENT; Platelet Estimate DECREASED (NORMAL); Platelet Morphology Comment NORMAL; Toxic Vacuolation PRESENT
[2021-11-04] MEDS: cefEPime HCl 1 GM in 0.9 % Sodium Chloride 50 ML IV ×2 (07:59→20:16)
[2021-11-04] MEDS: modafiniL 100 MG TABLET PO ×2 (07:59→11:57)
[2021-11-04] MEDS: HYDROmorphone HCl 0.5 MG/0.5 ML SYRINGE IVPUSH (08:01)
--- NOTE | 2021-11-04 09:49 | MHC.CLN ---
F/U PT TRANSFERRED TO ICU NOTED C-DIFF + WILL INCREASE NUTRITION RISK PO INTAKE REMAINS FAIR DIET RX: REGULAR-APPROPRIATE PT RECEPTIVE TO DRINKING ENSURE (PREFERS STRAWBERRY FLAVOR) PT RECEIVING ENSURE BID TO PROVIDE 700KCALS, 40G PROTEIN FRAGILE SKIN-MONITOR PO INTAKE CLOSELY
--- NOTE | 2021-11-04 10:54 | CA_ITS ---
Transthoracic Echocardiogram Patient (Last, First, Middle): Joy [address] A Gender: Female Date of : 1950 Age: 71 Procedure Date: 11/04/2021 Procedure Type: Transthoracic Echocardiogram Location: ICU Height: 170.18 cm Weight: 50.8 kg BSA: 1.58 m2 Heart Rate: bpm BP: 103 / 55 mmHg Motorcycle Service Technician: JOSE Leos MD: Chan Altman MD Guide Visitor: Sandip Pate MD Symptoms: Clinical CHF, marked JVD, BNP > 2000. No h/o heart failure. Study Quality: Fair ECG Rhythm: Sinus Conclusions: - 1. Normal LV systolic function with impaired relaxation filling pattern 2. [id number] tricuspid regurgitation 3. Severely elevated right ventricular systolic pressure with significantly elevated right atrial pressures 4. Small pericardial effusion Findings Left Ventricle Normal left ventricular size, thickness, and systolic function. The visually estimated ejection fraction is between 55-60%. Spectral Doppler is indicative of an impaired relaxation filling pattern. E/E prime ratio is between 8 and 15 consistent with indeterminate filling pressures. Wall Motion Rest Echo Findings The basal inferior and basal inferoseptal segments are akinetic. All other scored wall segments showed normal motion. Right Ventricle Mildly increased right ventricular cavity size. There is normal right ventricular systolic function. Atria The left atrium is likely dilated. Interatrial shunt cannot be excluded. The right atrium is mildly dilated. Aortic Valve There is mild calcification of the aortic valve. There is no aortic valve stenosis. There is no aortic valve regurgitation. Mitral Valve There is mild anterior and posterior mitral leaflet thickening. There is trace mitral valve regurgitation. There is no mitral valve stenosis. Pulmonic Valve The pulmonic valve was not well visualized. Tricuspid Valve There is mild to moderate tricuspid valve regurgitation. Significantly elevated right atrial pressure. Severe pulmonary hypertension is present. Great Vessels All visible segments of the aorta are normal in size. The pulmonary artery was not well visualized. Venous The inferior vena cava is moderately dilated and does not collapse with inspiration. Pericardium/Pleural There is a small circumferential pericardial effusion. Prior Study Comparison Changes noted compared to prior study dated: 03/18/2020. RV systolic pressure is significantly elevated with elevated right atrial pressures Measurements 2D Linear Measurements IVSd: 0.74 0.6-0.9/0.6-1.0 cm LVIDd: 3.72 3.9-5.3/4.2-5.9 cm LVIDd Index: 2.35 2.4-3.2/2.2-3.1 cm/m2 LVIDs: 2.15 2.0-3.6 cm LVPWd: 0.81 0.7-1.1 cm Ao Root: 2.80 2.1-3.5 cm LA Diam: 2.40 2.7-3.8/3.0-4.0 cm LAIDs Index: 1.52 1.5-2.3 cm/m2 LV Mass: 98.59 67-162/88-224 g LV Mass Index: 62.40 43-95/49-115 g/m2 LVOT Diam: 2.00 3.0+(-)1.3 cm Mitral Valve MV Pk E: 0.83 MV PK A: 0.74 MV Decel Time: 219.00 E/A: 1.10 E'Lateral: 9.03 E'Medial: 7.29 E/E' Med: 11.40 E/E' Lat: 9.20 PHT: 64.00 MVA PHT: 3.44 Decel [place]: 3.80 Aortic Valve AoV Pk Asif: 1.46 AoV Mn Asif: 1.07 AoV VTI: 0.28 AoV Pk Grad: 9.00 Aov Mn Grad: 5.00 MARYSE Cont.VTI: 1.87 LVOT LVOT Pk Asif: 0.87 LVOT Mn Asif: 0.62 LVOT VTI: 0.17 LVOT Pk Grad: 3.00 LVOT Mn Grad: 2.00 LVOT Diam: 2.00 LVOT Area: 3.14 Diastolic Function MV Pk E: 0.83 MV Pk A: 0.74 E/A: 1.10 E'Medial: 7.29 E/E' Med: 11.40 E' Laterial: 9.03 E/E' Lat: 9.20 Tricuspid Valve TR Pk Asif: 3.65 TR Pk Grad: 53.00 RA Press: 15.00 RVSP: 68.00 Great Vessels Aorta Ao Root-2D: 2.80 2.0-3.7 cm Ao Asc: 2.70 2.1-3.4 cm Ao Arch: 2.50 Updated in Other Vendor System with Status of Final Sandip Pate MD electronically signed on 11/04/2021 3:49:59 PM with status of Final
--- NOTE | 2021-11-04 10:56 | ECG_ITS ---
Test Reason : check rthym Blood Pressure : / mmHG Vent. Rate : 088 BPM Atrial Rate : 088 BPM P-R Int : 108 ms QRS Dur : 084 ms QT Int : 382 ms P-R-T Axes : 057 -15 054 degrees QTc Int : 462 ms Sinus rhythm with short NE Low voltage QRS Borderline ECG When compared with ECG of 09-JUL-2020 08:04, No significant change was found Referred By: Chan Altman Electronically Signed By:ANNE HIGGINS MD
[2021-11-04 11:18] LABS: Troponin-I High Sensitivity 110.4 ng/L (<3.5-17.0)
[2021-11-04] MEDS: Magnesium Sulfate/D5W 1 GM/100 ML PIGGYBACK IV (11:57)
[2021-11-04] MEDS: Dextrose 5 % and 0.45 % NaCl 1,000 ML 50 ML IVCONT (13:14)
--- NOTE | 2021-11-04 14:33 | PM.CCPN ---
Subjective Subjective Date of Service: 11/04/21 Interval History: Mrs. Street was transferred to the ICU Nov 03 with septic shock. The patient is a 71-year-old woman with past medical history of very disabling multiple sclerosis.? She also has history of bilateral renal stones, neurogenic urinary bladder, and recurrent UTI.? Had colon cancer surgery a few years ago.? Pt weighs 51kg.? She lives with her and her son.? She gets around in a wheelchair.? She does not walk.? Her arms are contracted. On Nov 02 she underwent elective cystoscopy, left retrograde ureteroscopy, and laser lithotripsy with stent in the OR here w Dr. Majano.? Postprocedure the patient became tachycardic, hypotensive, w lactic acidosis.? Cortes bag showed gross hematuria.? She was admitted to Medicine for treatment of sepsis.? She had been given cefazolin preoperatively, and that was continued postoperatively. The next morning the patient was noted to be tachycardic to 150s, BP dropped in the 80s, altho afebrile.? Had abdom pain with more tense on exam and elevated lactate.? The BP and lactate did not improve with 2L crystalloid.? She was started on broad-spectrum antibiotics.? She was grossly septic and was transferred to ICU via CT scan. By the time she arrived in ICU, she looked much better.? Mental status normalized.? I started her Magnus-Synephrine. ?I placed a small gauge single lumen CVL, then converted to Levophed. ?Her HR slowed into the 90?s with a bolus of esmolol, suggesting that she?d probably been in SVT.? On exam yesterday, her belly was very firm, with right sided tenderness altho no rebound.? Her urine sodium was high, and she had bulging JVD, suggesting that she was euvolemic. ABD CT:? KIDNEYS AND URETERS: There are multiple bilateral renal stones. Largest right stone conforms to upper pole calyces measuring approximately 1.5 cm. There are small stones or stone fragments in the left renal pelvis. There are small stones in the lower pole, largest measuring 3 mm. There is a left internal ureteral stent. Proximal pigtail is in the upper pole calyx. There is no hydronephrosis. There is no perinephric collection or hematoma. There is a small amount of air seen in the left renal collecting system. Left internal ureteral stent in satisfactory position. No left ureteral stone is seen.? Bladder is empty.? Small amount of ascites in the pelvis. GASTROINTESTINAL TRACT: There are postsurgical changes following right colectomy. There are fluid-filled loops of small bowel probably representing an ileus. There is a small amount of ascites in the pelvis. Dr. Baker examined the patient and looked at the CT.? It was his opinion that she had distended large and small bowel suggestive of ileus.? The patient gave a history of constipation.? We decided to give her lactulose. Overnight, her Levophed dose is up to 0.3ug, despite the fact that she looks much better.? Mental status is much clearer and more animated.? She ate a full lunch.? HR 91, SR on esmolol 25ug.? BP 122/60 on Levophed 0.31ug.? RR 16 on room air, Sat 100%.? She?s afebrile.? She looks very pale.? Still has about 3cm JVD sitting up, altho not as bulging as yesterday.? Chest CTA.? Abd still flat.? Softer though, cloth bleaching range tender on the right, but less so.? She has 2+ central edema. LABORATORY DATA:? Below.? Notably, white count slightly up further.? Hb down after vol resusc. MICROBIOLOGY:? Blood cultures from November 02 growing Gram-negative rods, yet to be ID?ed. CXR shows bilateral pleural effusions and bibasilar haziness likely infiltrate and/or atelectasis. ?The effusions greater on the right with slight loculated pleural effusion along the right minor fissure. ECHO done by the tech today: - Normal LV size, thickness, and systolic function. ?EF 55-60%, with basal inferior and basal inferoseptal segments are akinetic. - Mildly increased right ventricular cavity size, normal function. - LA dilated.? RA is mildly dilated. - Trace MR. - Mild to moderate TR.? RVSP 68. - IVC moderately dilated w no insp collapse. IMPRESSION: 1. Most unfortunate woman with disabling multiple sclerosis and nephrolithiasis, with septic shock following cystoscopy, ureteroscopy, laser lithotripsy.? Continue cefepime pending ID + [id number]. 2. Abdomen improving symptomatically.? And we?re giving her lactulose for obstipation. 3. She clearly has right heart failure, clinically and by xray and echo.? She?s fluid overloaded.? I?ll start her on Lasix. 4. I?m concerned about her loculated pleural effusion on the right in the face of the white count that is not coming down and the increasing Levophed requirement.? If not improved by tomorrow, we?ll tap the right-sided effusion to make sure it?s not an empyema. 5. Anemia.? Hb down to 7.3.? She?s never been that low before.? Might come up w diuresis.? But she might need a transfusion.? She?s very frail, and she?s requiring high dose Levophed. Critical Care Time (minutes): 60 Physical Exam Vital Signs: Vital Signs: Last Vital Signs Temp 98.6 F 11/04/21 12:00 Pulse 89 11/04/21 14:00 Resp 20 11/04/21 14:00 BP 125/63 11/04/21 14:00 Pulse Ox 96 11/04/21 14:00 BMI result Body Mass Index 17.6 Objective Data Labs CBC & Chem 7: 11/04/21 05:27 11/04/21 05:27 Labs: Laboratory Results - last 24 hr 11/03/21 11/03/21 11/03/21 06:47 16:07 16:07 WBC 29.7 H RBC 2.39 L Hgb 7.5 L Hct 23.9 L MCV 100.0 H MCH 31.4 MCHC 31.4 RDW 14.6 Plt Count 224 MPV 9.8 Immature Gran % (Auto) Neut % (Auto) Lymph % (Auto) [place] % (Auto) Eos % (Auto) Baso % (Auto) Lymph # (Auto) [place] # (Auto) Eos # (Auto) Baso # (Auto) Abs Immat Gran (auto) Absolute Neuts (auto) Absolute Nucleated RBC 0.000 Nucleated RBC % (auto) 0.0 Neutrophils % (Manual) Band Neutrophils % Lymphocytes % (Manual) Monocytes % (Manual) Metamyelocytes % Myelocytes % Abs Neuts (Manual) Lymphocytes # (Manual) Monocytes # (Manual) Metamyelocytes # Myelocytes # Toxic Vacuolation Dohle Bodies Platelet Estimate Plt Morphology Comment RBC Morphology Macrocytosis Ovalocytes [place] [facility] Cells Acanthocytes (Spur) Smear Path Review Sodium 142 Potassium 3.5 Chloride 116 H Carbon Dioxide 20 L Anion Gap 10 L BUN 23 H Creatinine 0.88 Estim Creat Clear Calc 46.6 Estimated GFR > 60 Random Glucose 77 Lactic Acid Calcium 7.3 L D Phosphorus 2.2 L Magnesium 1.4 L* Troponin I High Sens B-Natriuretic Peptide Albumin 2.7 L Procalcitonin Random Cortisol 41.2 11/03/21 11/03/21 11/03/21 16:07 16:07 16:07 WBC RBC Hgb Hct MCV MCH MCHC RDW Plt Count MPV Immature Gran % (Auto) Neut % (Auto) Lymph % (Auto) [place] % (Auto) Eos % (Auto) Baso % (Auto) Lymph # (Auto) [place] # (Auto) Eos # (Auto) Baso # (Auto) Abs Immat Gran (auto) Absolute Neuts (auto) Absolute Nucleated RBC Nucleated RBC % (auto) Neutrophils % (Manual) Band Neutrophils % Lymphocytes % (Manual) Monocytes % (Manual) Metamyelocytes % Myelocytes % Abs Neuts (Manual) Lymphocytes # (Manual) Monocytes # (Manual) Metamyelocytes # Myelocytes # Toxic Vacuolation Dohle Bodies Platelet Estimate Plt Morphology Comment RBC Morphology Macrocytosis Ovalocytes [place] Cells Acanthocytes (Spur) Smear Path Review Sodium Potassium Chloride Carbon Dioxide Anion Gap BUN Creatinine Estim Creat Clear Calc Estimated GFR Random Glucose Lactic Acid 0.9 Calcium Phosphorus Magnesium Troponin I High Sens B-Natriuretic Peptide 2061 H Albumin Procalcitonin 93.98 Random Cortisol 11/04/21 11/04/21 11/04/21 05:27 05:27 05:27 WBC 30.7 H* RBC 2.38 L Hgb 7.3 L Hct 23.8 L MCV 100.0 H MCH 30.7 MCHC 30.7 L RDW 15.0 Plt Count 178 MPV 10.1 Immature Gran % (Auto) Cancelled Neut % (Auto) Cancelled Lymph % (Auto) Cancelled [place] % (Auto) Cancelled Eos % (Auto) Cancelled Baso % (Auto) Cancelled Lymph # (Auto) Cancelled [place] # (Auto) Cancelled Eos # (Auto) Cancelled Baso # (Auto) Cancelled Abs Immat Gran (auto) Cancelled Absolute Neuts (auto) Cancelled Absolute Nucleated RBC 0.000 Nucleated RBC % (auto) 0.0 Neutrophils % (Manual) 75 H Band Neutrophils % 18 H Lymphocytes % (Manual) 1 L Monocytes % (Manual) 3 Metamyelocytes % 1 Myelocytes % 2 Abs Neuts (Manual) 28.6 H Lymphocytes # (Manual) 0.3 L Monocytes # (Manual) 0.9 Metamyelocytes # 0.3 Myelocytes # 0.6 Toxic Vacuolation PRESENT Dohle Bodies PRESENT Platelet Estimate DECREASED Plt Morphology Comment NORMAL RBC Morphology NOTED Macrocytosis 1+ (5-14) Ovalocytes 1+ (5-14) Christina Cells 3+ (>5) Acanthocytes (Spur) 1+ (0-2) Smear Path Review SEE NOTE Sodium 141 Potassium 4.2 Chloride 117 H Carbon Dioxide 15 L Anion Gap 13 BUN 26 H Creatinine 0.91 Estim Creat Clear Calc 45.1 Estimated GFR > 60 Random Glucose 124 H Lactic Acid Calcium 7.2 L Phosphorus 3.2 Magnesium 1.9 Troponin I High Sens 110.4 H* B-Natriuretic Peptide 2044 H Albumin Procalcitonin Random Cortisol 11/04/21 05:27 WBC RBC Hgb Hct MCV MCH MCHC RDW Plt Count MPV Immature Gran % (Auto) Neut % (Auto) Lymph % (Auto) [place] % (Auto) Eos % (Auto) Baso % (Auto) Lymph # (Auto) [place] # (Auto) Eos # (Auto) Baso # (Auto) Abs Immat Gran (auto) Absolute Neuts (auto) Absolute Nucleated RBC Nucleated RBC % (auto) Neutrophils % (Manual) Band Neutrophils % Lymphocytes % (Manual) Monocytes % (Manual) Metamyelocytes % Myelocytes % Abs Neuts (Manual) Lymphocytes # (Manual) Monocytes # (Manual) Metamyelocytes # Myelocytes # Toxic Vacuolation Dohle Bodies Platelet Estimate Plt Morphology Comment RBC Morphology Macrocytosis Ovalocytes [place] Cells Acanthocytes (Spur) Smear Path Review Sodium Potassium Chloride Carbon Dioxide Anion Gap BUN Creatinine Estim Creat Clear Calc Estimated GFR Random Glucose Lactic Acid 1.5 Calcium Phosphorus Magnesium Troponin I High Sens B-Natriuretic Peptide Albumin Procalcitonin Random Cortisol Microbiology Microbiology Results: Microbiology 11/03/21 09:40 Blood - Venous Blood Culture - Preliminary No growth after 24 hours. 11/03/21 09:47 Blood - Venous Blood Culture - Preliminary No growth after 24 hours. 11/02/21 19:10 Blood - Venous Blood Culture - Preliminary Gram negative renae 11/02/21 19:10 Blood - Venous Blood Culture - Preliminary Gram negative renae Quality Stroke Does the patient have a stroke diagnosis?: No VTE Prior VTE?: No VTE Risk Level:: Medical - moderate - high VTE Device Contraindication: N/A - Device Ordered VTE Drug Contraindication: N/A - Med Ordered Critical Care Time Critical Care Time (minutes): 60
[2021-11-04] MEDS: Furosemide 20 MG/2 ML VIAL IVPUSH (18:10)
--- NOTE | 2021-11-04 18:37 | PC.NURSE ---
Afebrile, VSS on levophed gtt and esmolol gtt. SR-ST on tele. A&O, pt able to maek needs known. C/o mild SOB- md aware, order for ekg, cxr, echo and IVP lasix. Pt satting well on RA, LS clear to dim throughout. U/O WNL, pt washed up, repositioned as requested, and tolerating diet well.
[2021-11-04] MEDS: Enoxaparin Sodium 30 MG/0.3 ML SYRINGE SUBCUT (20:17)
[2021-11-05] VITALS (17 sets, daily range): BP systolic 107–146; BP diastolic 45–61; PULSE 84–123; RESP 15–27; TEMP 36.2–37; O2SAT 92–96; BMI 17.6
[2021-11-05] MEDS: Esmolol HCl/NaCl Iso 2,500 MG/250 ML IV.SOLN IVCONT (05:46)
[2021-11-05 06:04] LABS: Hematocrit 23.4 % (37.0-47.0); Hemoglobin 7.4 g/dl (12.0-16.0); Mean Corpuscular HGB Conc 31.6 g/dl (31.0-35.0); Mean Corpuscular Hemoglobin 30.8 pg (27.0-33.0); Mean Corpuscular Volume 97.5 fL (80.0-98.0); Mean Platelet Volume 10.7 fL (9.4-12.3)
[2021-11-05 06:05] LABS: Lactic Acid 0.9 mmol/L (0.5-2.0)
[2021-11-05 06:23] LABS: Albumin Level 2.7 g/dL (3.5-5.0); Anion Gap 12 (12-20); Blood Urea Nitrogen 27 mg/dL (9-16); Calcium 7.9 mg/dL (8.4-10.2); Carbon Dioxide 18 mmol/L (22-29); Chloride 116 mmol/L (96-108); Creatinine Clr Calc Pharmacy 44.5; Estimated Glomerular Filt Rate > 60; Glucose Random 102 mg/dL (60-115); Phosphorus 2.4 mg/dL (2.7-4.5); Potassium 3.5 mmol/L (3.3-5.1); Sodium 142 mmol/L (135-145)
[2021-11-05 06:25] LABS: Troponin-I High Sensitivity 130.5 ng/L (<3.5-17.0)
[2021-11-05 06:28] LABS: Procalcitonin 18.63 ng/mL
[2021-11-05 06:52] LABS: Platelet Count 129 X10*3/uL (160-400); White Blood Count 37.1 X10*3/uL (4.8-10.8)
[2021-11-05] MEDS: cefEPime HCl 1 GM in 0.9 % Sodium Chloride 50 ML IV (09:59)
[2021-11-05] MEDS: modafiniL 100 MG TABLET PO ×2 (10:00→14:58)
[2021-11-05] MEDS: Potassium Phosphate/NS 15 MMOL/250 ML PLAST..BAG 62.5 MMOL IV ×2 (10:01→17:03)
--- NOTE | 2021-11-05 10:17 | MHC.CLN ---
F/U PT REMAINS IN ICU PO INTAKE EXCELLENT DIET RX: REGULAR-APPROPRIATE PT RECEIVING ENSURE BID PROVIDES 700KCALS, 40G PROTEIN FRAGILE SKIN-MONITOR PO INTAKE CLOSELY
--- NOTE | 2021-11-05 10:43 | MHC.CM.ED ---
Addendum entered by Marbella Perez 11/05/21 10:45: Patient is wheelchair bound at baseline. But may need physical therapy eval for home safety when medically stable. Original Note: Patient was transferred to ICU on 11/03 due to septic shock. Patient is from home with & son. Patient has [employer]ORT [facility]IST[facility] hours and [facility]. Patient is currently on a levophed and esmolol drip. Anticiapte patient will return home with these services. Continue to monitor for d/c needs.
[2021-11-05] MEDS: Lactulose 20 GM/30 ML SOLUTION PO ×2 (10:45→14:58)
[2021-11-05] MEDS: vancomycin HCL 125 MG CAPSULE 250 MG PO (10:45)
--- NOTE | 2021-11-05 11:39 | HE.PHANOTE ---
RE: Meropenem Restricted ABX approved by Dr Gurrola Thanks Diogo Vasquez
[2021-11-05 11:52] LABS: Stone Source KIDNEY STONE
--- NOTE | 2021-11-05 12:27 | P.PNCC_ITS ---
Subjective Subjective Date of Service: 11/05/21 Interval History: Mrs. Street was transferred to the ICU Nov 03 with septic shock. The patient is a 71-year-old woman with past medical history of very disabling multiple sclerosis.? She also has history of bilateral renal stones, neurogenic urinary bladder, and recurrent UTI.? Had colon cancer surgery a few years ago.? Pt weighs 51kg.? She lives with her and her son.? She gets around in a wheelchair.? She does not walk.? Her arms are contracted. On Nov 02 she underwent elective cystoscopy, left retrograde ureteroscopy, and laser lithotripsy with stent in the OR here w Dr. Majano.? Postprocedure the patient became tachycardic, hypotensive, w lactic acidosis.? Cortes bag showed gross hematuria.? She was admitted to Medicine for treatment of sepsis.? She had been given cefazolin preoperatively, and that was continued postoperatively. The next morning the patient was noted to be tachycardic to 150s, BP dropped in the 80s, altho afebrile.? Had abdom pain with more tense on exam and elevated lactate.? The BP and lactate did not improve with 2L crystalloid.? She was started on broad-spectrum antibiotics.? She was grossly septic and was haas sferred to ICU via CT scan. By the time she arrived in ICU, she looked much better.? Mental status normalized.? A small gauge single lumen CVL was placed, then she was started on Levophed.? Her HR slowed into the 90?s with a bolus of esmolol, suggesting that she?d probably been in SVT.? On exam her belly was very firm, with right sided tenderness altho no rebound.? Her urine sodium was high, and she had bulging JVD, suggesting that she was euvolemic. ABD CT:? ?There are multiple bilateral renal stones. Largest right stone conforms to upper pole calyces measuring approximately 1.5 cm. There are small stones or stone fragments in the left renal pelvis. There are small stones in the lower pole, largest measuring 3 mm. There is a left internal ureteral stent. Proximal pigtail is in the upper pole calyx. There is no hydronephrosis. There is no perinephric collection or hematoma. There is a small amount of air seen in the left renal collecting system. Left internal ureteral stent in satisfactory position. No left ureteral stone is seen.? Bladder is empty.? Small amount of ascites in the pelvis. GASTROINTESTINAL TRACT: There are postsurgical changes following right colectomy. There are fluid-filled loops of small bowel probably representing an ileus. There is a small amount of ascites in the pelvis.? Dr. Baker examined the patient and looked at the CT.? It was his opinion that she had distended large and small bowel suggestive of ileus.? The patient gave a history of constipation.? We gave her lactulose. Her WBC maikel to 30 yesterday, and Levophed dose was up to 0.3ug, despite the fact that she looked much better, mental status was fully clear, and she had a good appetite.? BCs were reported back as GNR.? She was continued on cefepime; vanco was d/c?d.? ECHO done by the [facility] yesterday showed: - Normal LV size, thickness, and systolic function.? EF 55-60%, with basal inferior and basal inferoseptal segments are akinetic. - Mildly increased right ventricular cavity size, normal function. - LA dilated.? RA is mildly dilated. - Trace MR. - Mild to moderate TR.? RVSP 68. - IVC moderately dilated w no insp collapse.0 I started diuresing her last night. ?Today, Mental status is clear, she looks chronically ill, but nontoxic.? Still eating well.? I changed her single lumen CVL for a triple lumen CVL (separate procedure).? She?s off the esmolol and the Levophed.? HR 105, SR.? BP 146/56.? RR 20 on room air, Sat 93%.? She?s afebrile.? She looks very pale.? Still has about 3-4cm JVD sitting up.? Chest CTA.? Abd still flat.? Softer than two days ago, still worker helper on the right, but less so.? She has 2+ central edema. LABORATORY DATA:? Below.? Notably, white count is up to 37.? Hb stable.? Plat count is down.? Renal indices steady.? Potassium and phos are low.? Troponin (done bec of her JVD and RHF) are mildly elevated.? EKG showed no low voltage, old septal wall AZ, but no acute ischemic changes.? PCT is way down.? Alb 2.7.? CDiff tox gene PCR positive from a stool sample on Nov 03, but the toxin was negative. MICROBIOLOGY:? Blood cultures from November 02 growing pseudomonas.? Sensitivity pending. CXR shows bilateral pleural effusions and bibasilar haziness likely infiltrate and/or atelectasis. ?The effusion now looks greater on the left. IMPRESSION: 1. Most unfortunate woman with disabling multiple sclerosis and nephrolithiasis, with septic shock following cystoscopy, ureteroscopy, laser lithotripsy.? Bec of the increasing WBC, this morning we changed the cefepime to meropenam, pending the sensitivities. 2. Abdomen improving symptomatically.? We gave her her lactulose for obstipation, and she had a BM this morning. 3. CDiff tox gene PCR positive, toxin negative.? Reportedly this stool sample was sent after the patient had had two explosive bowel movements (as she described them). ?But since she has been in the ICU, she has not had any stool, no less diarrhea.? Furthermore, there was no evidence of colitis on the CT scan that she had on November 03. ?Interpetation of the test results suggests that the CDiff is a colonizer.? Would normally not treat this in an asymptomatic person.? But since her WBC is climbing without any other apparent source, we started her on oral vanco this morning. 4. She clearly has right heart failure, clinically and by BNP, xray, and echo.? She?s fluid overloaded.? Started her on daily Lasix yesterday. 5. Left sided pleural effusion.? She c/o SOB.? It might be worth draining her left pleural effusion if she has enough there by US.? (I wouldn?t rely on the CT that she had two days ago.) 6. Anemia.? Hb down to low 7?s range.? She?s never been that low before.? Might come up w diuresis.? But she might need a transfusion.? She?s very frail, might very well need more Hb.? But if she?s transfused, she?ll need diuresis with the RBCs. Time (not including procedures):? 41313 Critical Care Time (minutes): 0 Physical Exam Vital Signs: Vital Signs: Last Vital Signs Temp 98.4 F 11/05/21 08:00 Pulse 96 11/05/21 11:00 Resp 24 H 11/05/21 11:00 BP 133/57 L 11/05/21 11:00 Pulse Ox 95 11/05/21 11:00 BMI result Body Mass Index 17.6 Objective Data Labs CBC & Chem 7: 11/05/21 05:40 11/05/21 05:40 Labs: Laboratory Results - last 24 hr 11/02/21 11/05/21 11/05/21 10:03 05:40 05:40 WBC 37.1 H* RBC 2.40 L Hgb 7.4 L Hct 23.4 L MCV 97.5 MCH 30.8 MCHC 31.6 RDW 15.0 Plt Count 129 L D MPV 10.7 Absolute Nucleated RBC 0.000 Nucleated RBC % (auto) 0.0 Sodium 142 Potassium 3.5 Chloride 116 H Carbon Dioxide 18 L Anion Gap 12 BUN 27 H Creatinine 0.92 Estim Creat Clear Calc 44.5 Estimated GFR > 60 Random Glucose 102 Lactic Acid Calcium 7.9 L D Phosphorus 2.4 L Magnesium 2.0 Troponin I High Sens Albumin 2.7 L Procalcitonin Stone Source KIDNEY STONE Stone Weight 0.020 Stone Constituent 1 SEE NOTE Blood Type Antibody Screen 11/05/21 11/05/21 11/05/21 05:40 05:40 05:40 WBC RBC Hgb Hct MCV MCH MCHC RDW Plt Count MPV Absolute Nucleated RBC Nucleated RBC % (auto) Sodium Potassium Chloride Carbon Dioxide Anion Gap BUN Creatinine Estim Creat Clear Calc Estimated GFR Random Glucose Lactic Acid 0.9 Calcium Phosphorus Magnesium Troponin I High Sens 130.5 H* Albumin Procalcitonin 18.63 Stone Source Stone Weight Stone Constituent 1 Blood Type Antibody Screen 11/05/21 05:40 WBC RBC Hgb Hct MCV MCH MCHC RDW Plt Count MPV Absolute Nucleated RBC Nucleated RBC % (auto) Sodium Potassium Chloride Carbon Dioxide Anion Gap BUN Creatinine Estim Creat Clear Calc Estimated GFR Random Glucose Lactic Acid Calcium Phosphorus Magnesium Troponin I High Sens Albumin Procalcitonin Stone Source Stone Weight Stone Constituent 1 Blood Type O Positive Antibody Screen NEGATIVE Microbiology Microbiology Results: Microbiology 11/03/21 09:40 Blood - Venous Blood Culture - Preliminary No growth after 48 hours. 11/03/21 09:47 Blood - Venous Blood Culture - Preliminary Prelim: GNR Gram Stain only 11/02/21 19:10 Blood - Venous Blood Culture - Preliminary Pseudomonas aeruginosa 11/02/21 19:10 Blood - Venous Blood Culture - Preliminary Pseudomonas aeruginosa Quality Stroke Does the patient have a stroke diagnosis?: No VTE Prior VTE?: No VTE Risk Level:: Medical - moderate - high VTE Device Contraindication: N/A - Device Ordered VTE Drug Contraindication: N/A - Med Ordered
[2021-11-05] MEDS: vancomycin HCL 125 MG CAPSULE PO ×2 (15:01→21:09)
--- NOTE | 2021-11-05 15:44 | W.PM.CCHP ---
Procedures Date of Service Date of Service: 11/05/21 Central Line Placement Left SC: Central Line Comments: PROCEDURE:? Guidewire exchange of central venous catheter. INDICATION:? IV access. ANESTHESIA:? Local 1% lidoc. The patient has a single lumen 20g left supraclavic subclavian central venous line in place. She needs more than one line. She's a difficult peripheral stick. Therefore the line was changed over guidewire for a new triple lumen central venous catheter. The in-situ left SCL central venous catheter was 'sloppy' prepped with chlorhexidine.? The field was then sterilely draped.? The line was clamped at the skin and then cut approximately 1 cm proximal to that.? The proximal portion of the line was then pulled out of the field from under the drapes. An 0.025 guidewire was then threaded through the remaining distal portion of the catheter and the catheter was pulled out over the wire.? Pressure was held to stop bleeding.? An 18g angiocath was advance to the hub over the wire. An 0.032 wire was advanced and the 18 g angiocath was removed. The new 16 cm by 7 [place] arrow central venous catheter was then threaded over the wire via Seldinger technique.? The catheter was seated to the 15cm deb.? The catheter was sutured at the hub and then at the 2 wings with 3 3-0 silk stitches.? The skin and catheter were prepped with benzoin, a Biopatch was applied, and the catheter was dressed with a Tegaderm. The patient tolerated the procedure well.? Postop CXR showed the catheter in good position with no pneumothorax. Consent for Procedure: Elective - informed consent obtained
[2021-11-05] MEDS: Enoxaparin Sodium 30 MG/0.3 ML SYRINGE SUBCUT (21:08)
[2021-11-06] VITALS (10 sets, daily range): BP systolic 126–149; BP diastolic 56–68; PULSE 68–105; RESP 16–19; TEMP 36–36.9; O2SAT 95–99; BMI 18.6
[2021-11-06] MEDS: vancomycin HCL 125 MG CAPSULE PO ×4 (03:59→21:13)
[2021-11-06 05:15] LABS: Hematocrit 23.7 % (37.0-47.0); Hemoglobin 7.4 g/dl (12.0-16.0); Mean Corpuscular HGB Conc 31.2 g/dl (31.0-35.0); Mean Corpuscular Hemoglobin 30.3 pg (27.0-33.0); Mean Corpuscular Volume 97.1 fL (80.0-98.0); PLT CLUMP 1; Red Blood Count 2.44 X10*6/uL (4.20-5.50)
[2021-11-06 05:17] LABS: Mean Platelet Volume 11.3 fL (9.4-12.3); Red Cell Distribution Width 15.3 % (11.0-16.0)
[2021-11-06 05:19] LABS: Venous Blood Gas Refer to POC result
[2021-11-06 05:19] LABS: VBG Base Excess -6.1 mmol/L; VBG HCO3 17 mmol/L (22-26); VBG pCO2 26 mmHg; VBG pH 7.42 (7.32-7.43); VBG pO2 54 mmHg
[2021-11-06 05:20] LABS: Platelet Count 94 X10*3/uL (160-400); White Blood Count 23.5 X10*3/uL (4.8-10.8)
[2021-11-06 05:36] LABS: Albumin Level 2.8 g/dL (3.5-5.0); Anion Gap 11 (12-20); Blood Urea Nitrogen 24 mg/dL (9-16); Carbon Dioxide 18 mmol/L (22-29); Chloride 118 mmol/L (96-108); Creatinine Clr Calc Pharmacy 44.7; Estimated Glomerular Filt Rate > 60; Glucose Random 97 mg/dL (60-115); Phosphorus 2.6 mg/dL (2.7-4.5); Potassium 3.4 mmol/L (3.3-5.1); Sodium 144 mmol/L (135-145)
[2021-11-06 05:39] LABS: B Type Natriuretic Peptide 949 pg/mL (<100)
[2021-11-06 05:41] LABS: Troponin-I High Sensitivity 117.8 ng/L (<3.5-17.0)
--- NOTE | 2021-11-06 07:57 | PC.NURSE ---
Skin assessment completed. Patient has a Stage 1 to bilateral buttocks- barrier cream applied. Patient is wheelchair bound at home.
[2021-11-06 09:40] LABS: VBG Base Excess -5.8 mmol/L; VBG HCO3 17 mmol/L (22-26); VBG pCO2 27 mmHg; VBG pH 7.41 (7.32-7.43); VBG pO2 47 mmHg
[2021-11-06] MEDS: Furosemide 20 MG TABLET PO (10:00)
[2021-11-06] MEDS: modafiniL 100 MG TABLET PO (10:04)
[2021-11-06] MEDS: Furosemide 20 MG/2 ML VIAL IVPUSH ×2 (11:40→21:13)
--- NOTE | 2021-11-06 11:45 | MHC.CLN ---
F/U PO INTAKE 50% avg. DIET RX: REGULAR-APPROPRIATE PT RECEIVING ENSURE BID PROVIDES 700KCALS, 40G PROTEIN SUPPLEMENT PROVIDES 46% EST KCAL NEEDS, 52% EST PROTEIN NEEDS FRAGILE SKIN-MONITOR PO INTAKE CLOSELY
--- NOTE | 2021-11-06 13:01 | MHC.CM.PN ---
Per ROUNDS discussion, Patient is not yet medically cleared for dc (IV Meropenem, IV Levophed 11/05/21); Home/resume services is the goal for dc and CM will follow for possible need to adjust the dc plan.
--- NOTE | 2021-11-06 14:19 | PC.NURSE ---
report called to Lennox PANCHAL. Patient to be moved in bed to 3rd floor at this time
--- NOTE | 2021-11-06 14:27 | P.PNIM_ITS ---
Subjective Subjective Date of Service: 11/06/21 Interval History: the patient was seen and evaluated this morning Laying in bed, feels much better today but overall still having some weakness. Blood cultures positive for Pseudomonas aeruginosa Denies any fever, chills or shortness of breath No reported other overnight events. Systemic review: No fever, chills but reports generalized weakness No chest pain, palpitation No shortness of breath or coughing No abdominal pain, nausea or vomiting No urinary symptoms No any rash or wounds Physical Exam Vital Signs: Vital Signs: Last Vital Signs Temp 97.3 F 11/06/21 11:38 Pulse 96 11/06/21 11:38 Resp 16 11/06/21 11:38 BP 131/56 L 11/06/21 11:38 Pulse Ox 96 11/06/21 11:38 BMI result Body Mass Index 18.6 Const: Other: Constitutional : Alert, oriented, not in distress Neck : Normal inspection, Supple Cardiovascular : RRR, S1 S2, no lower extremity edema Respiratory : Good bilateral air entry, no crackles, wheezes or rhonchi Gastrointestinal: soft, lax, Normal bowel sounds, Non tender Skin : Warm, Dry Neurological : Alert & oriented x3, left-sided weakness mainly on the lower extremity Objective Data Active Medications Enoxaparin Sodium (Enoxaparin Sodium 30 Mg/0.3 Ml Syringe) 30 mg SUBCUT Q24H [facility] Last Admin: 11/05/21 21:08 Dose: 30 mg Documented by: CLAUDIA Furosemide (Furosemide 20 Mg Tablet) 20 mg PO DAILY [facility]; Protocol Last Admin: 11/06/21 10:00 Dose: 20 mg Documented by: NAMAN Hydromorphone HCl (Hydromorphone Hcl 0.5 Mg/0.5 Ml Syringe) 0.5 mg IVPUSH Q1H PRN; Protocol PRN Reason: Pain, Mild (Pain Scale 1-3) Last Admin: 11/04/21 08:01 Dose: 0.5 mg Documented by: SCOOBY Meropenem 1 gm/ Sodium (Chloride) 100 mls @ 200 mls/hr IV Q12H [facility] Last Infusion: 11/06/21 10:30 Dose: 200 mls/hr Documented by: NAMAN Lactulose (Lactulose 20 Gm/30 Ml Solution) 20 gm PO TID [facility] Last Admin: 11/06/21 14:01 Dose: Not Given Documented by: NAMAN Non-Admin Reason: per MD--loose stools Modafinil (Modafinil 100 Mg Tablet) 100 mg PO BID@0800,1200 [facility] Last Admin: 11/06/21 11:44 Dose: Not Given Documented by: NAMAN Non-Admin Reason: last dose late Ondansetron HCl (Ondansetron Odt 8 Mg Tab.Rapdis) 8 mg TRANSLINGU Q8H PRN PRN Reason: Nausea and Vomiting Vancomycin HCl (Vancomycin Hcl 125 Mg Capsule) 125 mg PO Q6H [facility] Last Admin: 11/06/21 09:59 Dose: 125 mg Documented by: NAMAN Labs CBC & Chem 7: 11/06/21 05:09 11/06/21 05:09 Labs: Laboratory Results - last 24 hr 11/06/21 11/06/21 11/06/21 05:09 05:09 05:09 MCV 97.1 MCH 30.3 MCHC 31.2 RDW 15.3 Plt Count 94 L D MPV 11.3 Absolute Nucleated RBC 0.000 Nucleated RBC % (auto) 0.0 VBG pH VBG pCO2 VBG pO2 VBG HCO3 VBG O2 Saturation VBG Base Excess Anion Gap 11 L Estim Creat Clear Calc 44.7 Estimated GFR > 60 Random Glucose 97 Calcium 8.0 L Phosphorus 2.6 L Magnesium 2.0 Troponin I High Sens B-Natriuretic Peptide 949 H Albumin 2.8 L 11/06/21 11/06/21 11/06/21 05:09 05:11 05:13 MCV MCH MCHC RDW Plt Count MPV Absolute Nucleated RBC Nucleated RBC % (auto) VBG pH 7.41 7.42 VBG pCO2 27 26 VBG pO2 47 54 VBG HCO3 17 L 17 L VBG O2 Saturation 75.0 83.0 VBG Base Excess -5.8 -6.1 Anion Gap Estim Creat Clear Calc Estimated GFR Random Glucose Calcium Phosphorus Magnesium Troponin I High Sens 117.8 H* B-Natriuretic Peptide Albumin Microbiology Microbiology Results: Microbiology 11/02/21 19:10 Blood Culture - Final Blood - Venous Pseudomonas aeruginosa 11/02/21 19:10 Blood Culture - Final Blood - Venous Pseudomonas aeruginosa 11/03/21 09:47 Blood Culture - Preliminary Blood - Venous Gram negative renae 11/03/21 09:40 Blood Culture - Preliminary Blood - Venous Prelim: GNR Gram Stain only Assessment and Plan (1) Sepsis: Status: Acute (2) Recurrent UTI: Status: Acute (3) Bacteremia due to Pseudomonas: Status: Acute Assessment and Plan: a 71-year-old woman with past medical history of very disabling multiple sclerosis.? She also has history of bilateral renal stones, neurogenic urinary bladder, and recurrent UTI. underwent elective cystoscopy, left retrograde ureteroscopy, and laser lithotripsy with stent in the OR here w Dr. Majano.? Postprocedure the patient became tachycardic, hypotensive, w lactic acidosis. septic shock, resolved Pseudomonas bacteremia Patient could grew Pseudomonas in 2 different blood cultures Covered with cefepime at the beginning and changed to meropenem by yesterday. Pending ID evaluation pending the sensitivities. 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 to give a dose of IV Lasix today, resume with p.o. by tomorrow She might need more IV pushes Left sided pleural effusion Consider draining her left pleural effusion if no improvement by Lasix acute on chronic Anemia Hb down to low 7 range. seems to be related to chronic illness no clear source of bleeding identified to check iron stores might need a transfusion but will treat fluid overload and monitor response 1st DVT PPX SCDs Quality Stroke Does the patient have a stroke diagnosis?: No VTE Prior VTE?: No VTE Risk Level:: Medical - moderate - high VTE Device Contraindication: N/A - Device Ordered VTE Drug Contraindication: N/A - Med Ordered
--- NOTE | 2021-11-06 15:10 | PM.HEMONCCN ---
Subjective - Subjective Chief complaint: Shortness of breath Patient: new to practice Consult date: 11/06/21 Requesting Physician: Dr. Torres Primary Care Provider: Jakub Santacruz MD HPI - Consult Narrative Reason for consult: Thrombocytopenia Narrative: Joy Street is a 71 year old woman with multiple sclerosis who has been admitted following left ureteroscopic procedure on 11/02/2020. She is admitted for sepsis and Pseudomonas bacteremia. She has developed leukocytosis and in the last few days developed thrombocytosis. She had normal platelet counts on admission. She has been on IV antibiotics. She has developed progressive anemia and she reports shortness of breath. No chest pain or worsening cough. 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 Review of Systems - Constitutional Reports as per HPI, Reports fatigue PMFSH Medical History: Medical History (Last Reviewed 11/08/21 @ 21:20 by Bethanie Gurrola MD) Colon cancer Kidney stones Multiple sclerosis Functional capacity: wheelchair bound Family History: Family History (Last Reviewed 11/08/21 @ 21:21 by Bethanie Gurrola MD) Father No problems noted. Mother Kidney disease Maternal Aunt Breast cancer Surgical History: Surgical History (Last Reviewed 11/08/21 @ 21:21 by Bethanie Gurrola MD) H/O rectal polypectomy Social History: Social History (Last Reviewed 11/08/21 @ 21:21 by Bethanie Gurrola MD) Living Situation History: Household Members: Significant Other Household Members: Children Housing: House Do you presently have visiting nurse or other home services: Yes Alcohol History Details: 1. How often do you have a drink containing alcohol?: a. Never AUDIT-C Alcohol total score: 0 Currently Displaying Signs/Symptoms of Alcohol Withdrawal: No Tobacco History: Patient Tobacco Use Status: Never used Tobacco Second Hand Smoke Exposure: No Substance Use History: Use of substances other than those prescribed or required for medical reasons: No Currently Displaying Signs/Symptoms of Drug Intoxication Withdrawal: No Domestic Abuse History: Have you been hit, kicked, punched, or otherwise hurt by someone within the past year? If so, by whom?: No Do you feel safe in your current relationship?: Yes Is there a partner from a previous relationship who is making you feel unsafe now?: No Are you made to feel afraid or neglected: No Advance Directives: Advance Directives: Yes Advance Directives Information Provided: Yes Advance Directives on File: Yes Advance Directives Date on File: 11/05/21 Homicidal Assessment: Do you have thoughts of harming others: None Do you have a plan to hurt others: No Plan Nutrition Assessment: Recently lost weight without trying: No Nutrition Risks: No Nutritional Risk Occupation Assessmet: service: No Home Medications and Allergies Current Medications: Current Medications Furosemide (Furosemide 20 Mg Tablet) 20 mg PO DAILY [facility]; Protocol Last Admin: 11/06/21 10:00 Dose: 20 mg Documented by: Hydromorphone HCl (Hydromorphone Hcl 0.5 Mg/0.5 Ml Syringe) 0.5 mg IVPUSH Q1H PRN; Protocol PRN Reason: Pain, Mild (Pain Scale 1-3) Last Admin: 11/04/21 08:01 Dose: 0.5 mg Documented by: Meropenem 1 gm/ Sodium (Chloride) 100 mls @ 200 mls/hr IV Q12H [facility] Last Infusion: 11/06/21 10:30 Dose: Infused Documented by: Lactulose (Lactulose 20 Gm/30 Ml Solution) 20 gm PO DAILY [facility] Modafinil (Modafinil 100 Mg Tablet) 100 mg PO BID@0800,1200 [facility] Last Admin: 11/06/21 11:44 Dose: Not Given Documented by: Ondansetron HCl (Ondansetron Odt 8 Mg Tab.Rapdis) 8 mg TRANSLINGU Q8H PRN PRN Reason: Nausea and Vomiting Vancomycin HCl (Vancomycin Hcl 125 Mg Capsule) 125 mg PO Q6H [facility] Last Admin: 11/06/21 09:59 Dose: 125 mg Documented by: Home Medications Medication Instructions Recorded Confirmed Type modafinil 200 mg tablet 100 mg PO BID@0800,1200 08/15/20 11/03/21 History diclofenac sodium 1 % topical gel 2 g TOPICAL BID PRN 11/03/21 11/03/21 History furosemide 20 mg tablet 20 mg PO DAILY PRN 11/03/21 11/03/21 History Allergies Allergy/AdvReac Type Severity Reaction Status Date / Time nystatin [NYSTATIN] Allergy Severe SWOLLEN Verified 09/22/21 14:55 MOUTH Penicillins [PENICILLINS] Allergy Severe SWELLING,HI Verified 09/22/21 14:55 VES ciprofloxacin [CIPROFLOXACIN] Allergy Intermediate HIVES Verified 09/22/21 14:55 clindamycin [CLINDAMYCIN] Allergy Intermediate ITCHYNESS,D Verified 09/22/21 14:55 IARRHEA,HIV ES levofloxacin [From Levaquin] Allergy Intermediate HIVES.ITCHI Verified 09/22/21 14:55 NESS,DIARRH EA Sulfa (Sulfonamide Allergy Intermediate HIVES Verified 09/22/21 14:55 Antibiotics) [SULFA(SULFONAMIDE ANTIBIOTICS)] Physical Exam Vital signs: Vital Signs Temp 98.1 F 11/06/21 14:45 Pulse 104 H 11/06/21 14:45 Resp 19 11/06/21 14:45 BP 140/62 H 11/06/21 14:45 Pulse Ox 99 11/06/21 14:45 Intake & Output 11/05/21 11/06/21 11/06/21 18:59 06:59 18:59 Intake Total 573.760 / 3404.900 5726 / 1982.760 100 / 100 Output Total 2625 / 3125 500 / 3125 Balance -2051.240 / -1141.240 910 / -1141.240 100 / 100 Urine Output (Average ml/kg/hr) 4.26 0.77 0.77 Intake: Intake, Oral Amount 1060 / 1060 Intake, IV Amount 573.760 / 923.760 350 / 923.760 100 / 100 Meropenem 1 gm In 0.9 % Sodium 100 / 200 100 / 200 100 / 100 Chloride 100 ml @ 200 mls/hr IV Q12H [facility] Rx#:[id number] Potassium Phosphate/NS 15 mmol 250 / 500 250 / 500 In 250 ml @ 62.5 mls/hr IV ONCE ONE Rx#:[id number] cefEPime HCl 1 gm In 0.9 % 45 / 45 Sodium Chloride 50 ml @ 100 mls /hr IV Q12H [facility] Rx#:[id number] Esmolol HCl/NaCl Iso 2,500 mg 28.673 / 28.673 0 / 0 In 250 ml @ Per Protocol IVCONT .Q0M [facility] Rx#:[id number] Norepinephrine Bitartrate/NS 8 150.087 / 150.087 0 / 0 mg In 250 ml @ Per Protocol IVCONT .Q0M [facility] Rx#:[id number] Output: Output, Urine Amount 1350 / 1350 0 / 1350 Output, Urine Amount (Catheter) 1275 / 1775 500 / 1775 Urethral 1275 / 1775 500 / 1775 Other: Meal Refused No NPO No Breakfast % Eaten 75% Lunch % Eaten 25% Number of Bowel Movements 1 Urine antunez Urine Color Marlee Yellow Last Bowel Movement 11/05/21 11/06/21 11/06/21 Stool Incontinent Incontinent Stool Amount Moderate Large Stool Color Brown Brown Stool Consistency Watery Watery Weight 54 kg [place] Weight in Grams 80234 Weight 54 kg - Constitutional Present: mild distress, chronically ill appearing - Routine HEENT Exam Head: Present: normal inspection Eye: Present: normal appearance - Routine Neck Exam Absent: lymphadenopathy - Routine Respiratory Exam Present: CTAB - Routine Cardiovascular Exam Cardiovascular: Present: S1, S2 - Routine Skin Exam Present: pallor Hem/Onc Consult Result - Labs CBC & Chem 7: 11/09/21 05:42 11/09/21 05:40 Labs: Short CBC 11/06/21 Range/Units 05:09 WBC 23.5 H (4.8-10.8) X10*3/uL Hgb 7.4 L (12.0-16.0) g/dl Hct 23.7 L (37.0-47.0) % Plt Count 94 L D (160-400) X10*3/uL BMP 11/06/21 05:09 Sodium 144 Potassium 3.4 Chloride 118 H Carbon Dioxide 18 L BUN 24 H Creatinine 0.92 Calcium 8.0 L Liver Function 11/06/21 Range/Units 05:09 Albumin 2.8 L (3.5-5.0) g/dL Assessment and Plan Patient Active problem list reviewed?: Yes (1) Thrombocytopenia Status: Acute Assessment and plan: 1. This is a 71 y/o woman admitted for sepsis and bacteremia following urological procedure, now diagnosed with thrombocytopenia. She had normal platelet counts on admission, acute drop in platelets during this admission most likely a result of infection and antibiotic use. Trend in platelet decline not entirely consistent with HIT, although possible. Clinical course not suggestive of DIC or TTP/HUS. LDH, bilirubin, renal functions and coagulation tests are fairly normal. I recommend following platelet trend for a few days, if further decline HIT assay can be tested. Thanks. - Time Spent With Patient Time Spent with Patient (in minutes): 15
[2021-11-06 15:47] LABS: Fibrinogen 545 MG/DL (259-690); Prothrombin Time 10.8 SEC (9.9-13.0)
[2021-11-06 16:14] LABS: Lactate Dehydrogenase 268 U/L (122-220)
[2021-11-06 17:10] LABS: Folate 11.3 ng/mL (> or = 4.0); Vitamin B12 1669 pg/mL (200-900)
--- NOTE | 2021-11-06 18:36 | PC.NURSE ---
Pt arrived to unit on bed at 3pm. Alert and oriented. No complaints of pain. Triple lumen intact to left subclavian.
--- NOTE | 2021-11-06 21:28 | PC.NURSE ---
1 unit of RBCs completed at 2049, vitals stable, lungs clear. Patient denies any pain or discomfort at this time.
[2021-11-07] VITALS (7 sets, daily range): BP systolic 112–149; BP diastolic 63–72; PULSE 72–91; RESP 16–20; TEMP 36–37.1; O2SAT 95–99; BMI 18.8
[2021-11-07] MEDS: vancomycin HCL 125 MG CAPSULE PO ×4 (04:46→22:12)
[2021-11-07 06:08] LABS: PLT CLUMP 1; Red Cell Distribution Width 15.6 % (11.0-16.0)
[2021-11-07 06:10] LABS: Hematocrit 30.4 % (37.0-47.0); Hemoglobin 9.9 g/dl (12.0-16.0); Mean Corpuscular HGB Conc 32.6 g/dl (31.0-35.0); Mean Corpuscular Hemoglobin 30.2 pg (27.0-33.0); Mean Corpuscular Volume 92.7 fL (80.0-98.0); Mean Platelet Volume 11.1 fL (9.4-12.3); Red Blood Count 3.28 X10*6/uL (4.20-5.50)
[2021-11-07 06:19] LABS: Platelet Count 102 X10*3/uL (160-400); White Blood Count 13.9 X10*3/uL (4.8-10.8)
[2021-11-07 06:28] LABS: Anion Gap 14 (12-20); Blood Urea Nitrogen 20 mg/dL (9-16); Calcium 7.9 mg/dL (8.4-10.2); Carbon Dioxide 20 mmol/L (22-29); Chloride 113 mmol/L (96-108); Creatinine Clr Calc Pharmacy 53.4; Estimated Glomerular Filt Rate > 60; Glucose Random 80 mg/dL (60-115); Iron 48 mcg/dL (30-160); Percent Iron Saturation 26 % (15-50); Potassium 2.8 mmol/L (3.3-5.1); Sodium 144 mmol/L (135-145); Total Iron Binding Capacity 186 mcg/dL (228-428); Unsaturated Iron Binding 138 ug/dL
[2021-11-07] MEDS: Potassium Chloride ER 20 MEQ TAB.ER.PRT 40 MEQ PO (09:03)
[2021-11-07] MEDS: modafiniL 100 MG TABLET PO ×2 (09:04→12:53)
[2021-11-07] MEDS: Furosemide 20 MG TABLET PO (09:56)
--- NOTE | 2021-11-07 10:39 | HO.PM.IMPN ---
Subjective Subjective Date of Service: 11/07/21 Interval History: cc: hypotensive interval history: odynophagia, diarrhea Cardiovascular Cardiovascular: Reports no additional cardiovascular complaints Gastrointestinal Gastrointestinal: Reports no additional gastrointestinal complaints Physical Exam Vital Signs: Vital Signs: Last Vital Signs Temp 97.1 F 11/07/21 07:56 Pulse 86 11/07/21 07:56 Resp 20 11/07/21 07:56 BP 137/66 11/07/21 07:56 Pulse Ox 95 11/07/21 07:56 BMI result Body Mass Index 18.8 General: AO X 3, no acute distress Resp: CTA bilateral, no accessory muscles used CVS: S1,S2,RRR GI: soft, non tender, non distended Neuro: 0/5 le, 4/5 upper extremities Psych: appropriate affect, appropriate insight Objective Data Active Medications Furosemide (Furosemide 20 Mg Tablet) 20 mg PO DAILY [facility]; Protocol Last Admin: 11/07/21 09:56 Dose: 20 mg Documented by: SERVANDO Hydromorphone HCl (Hydromorphone Hcl 0.5 Mg/0.5 Ml Syringe) 0.5 mg IVPUSH Q1H PRN; Protocol PRN Reason: Pain, Mild (Pain Scale 1-3) Last Admin: 11/04/21 08:01 Dose: 0.5 mg Documented by: SCOOBY Meropenem 1 gm/ Sodium (Chloride) 100 mls @ 200 mls/hr IV Q12H [facility] Last Admin: 11/07/21 09:57 Dose: 200 mls/hr Documented by: SERVANDO Lidocaine/Diphenhydr/Alum/Mg/Simeth (Mag&Al/Sim/Diphenhyd/Lidocaine 10 Ml Oral.Susp) 10 ml PO Q4H PRN; Protocol PRN Reason: odynophagia Modafinil (Modafinil 100 Mg Tablet) 100 mg PO BID@0800,1200 [facility] Last Admin: 11/07/21 09:04 Dose: 100 mg Documented by: SREVANDO Ondansetron HCl (Ondansetron Odt 8 Mg Tab.Rapdis) 8 mg TRANSLINGU Q8H PRN PRN Reason: Nausea and Vomiting Vancomycin HCl (Vancomycin Hcl 125 Mg Capsule) 125 mg PO Q6H [facility] Last Admin: 11/07/21 09:04 Dose: 125 mg Documented by: SERVANDO Labs CBC & Chem 7: 11/07/21 05:47 11/07/21 05:47 Labs: Laboratory Results - last 24 hr 11/05/21 11/06/21 11/06/21 05:40 15:34 15:34 MCV MCH MCHC RDW Plt Count MPV Absolute Nucleated RBC Nucleated RBC % (auto) PT 10.8 INR 1.0 Fibrinogen 545 Anion Gap Estim Creat Clear Calc Estimated GFR Random Glucose Calcium Iron TIBC % Saturation Unsat Iron Binding Lactate Dehydrogenase 268 H Vitamin B12 Folate Blood Type O Positive Antibody Screen NEGATIVE Crossmatch See Detail 11/06/21 11/07/21 11/07/21 15:34 05:47 05:47 MCV 92.7 MCH 30.2 MCHC 32.6 RDW 15.6 Plt Count 102 L MPV 11.1 Absolute Nucleated RBC 0.000 Nucleated RBC % (auto) 0.0 PT INR Fibrinogen Anion Gap 14 Estim Creat Clear Calc 53.4 Estimated GFR > 60 Random Glucose 80 Calcium 7.9 L Iron TIBC % Saturation Unsat Iron Binding Lactate Dehydrogenase Vitamin B12 1669 H Folate 11.3 Blood Type Antibody Screen Crossmatch 11/07/21 05:47 MCV MCH MCHC RDW Plt Count MPV Absolute Nucleated RBC Nucleated RBC % (auto) PT INR Fibrinogen Anion Gap Estim Creat Clear Calc Estimated GFR Random Glucose Calcium Iron 48 TIBC 186 L % Saturation 26 Unsat Iron Binding 138 Lactate Dehydrogenase Vitamin B12 Folate Blood Type Antibody Screen Crossmatch Microbiology Microbiology Results: Microbiology 11/06/21 05:09 Blood Culture - Preliminary Blood - Venous No growth after 24 hours. 11/06/21 05:09 Blood Culture - Preliminary Blood - Venous No growth after 24 hours. 11/02/21 19:10 Blood Culture - Final Blood - Venous Pseudomonas aeruginosa 11/02/21 19:10 Blood Culture - Final Blood - Venous Pseudomonas aeruginosa 11/03/21 09:47 Blood Culture - Preliminary Blood - Venous Gram negative renae 11/03/21 09:40 Blood Culture - Preliminary Blood - Venous Prelim: GNR Gram Stain only Assessment and Plan (1) Sepsis: Status: Acute (2) Recurrent UTI: Status: Acute (3) Bacteremia due to Pseudomonas: Status: Acute Assessment and Plan: a 71-year-old woman with past medical history of very disabling multiple sclerosis.? She also has history of bilateral renal stones, neurogenic urinary bladder, and recurrent UTI. underwent elective cystoscopy, left retrograde ureteroscopy, and laser lithotripsy with stent in the OR here w Dr. Majano.? Postprocedure the patient became tachycardic, hypotensive, w lactic acidosis. septic shock, resolved Pseudomonas bacteremia Patient grew Pseudomonas 11/02 and 11/03, no growth from 11/06 on meropenem Pending ID evaluation thrombocytopenia Platelets dropping to 94 from 240 3 days ago patient on Lovenox Could be secondary to antibiotic, cefepime changed to meropenem, or sepsis T4 score of 3-4, low to intermediate risk to get Hematology evaluation before starting any treatment or genetic testing Constipation Started on lactulose per ICU, reporting having diarrhea, To hold laxative for now in use as needed CDiff tox gene PCR positive Continue oral vanco while on IV antibiotics Dyspnea Acute on chronic diastolic heart failure by BNP, xray, and echo.? continue lasix Left sided pleural effusion IR for possible thoracocentesis acute on chronic Anemia received 1 unit prbc, hgb improved from 7.4 to 9.9 DVT PPX SCDs Quality Stroke Does the patient have a stroke diagnosis?: No VTE Prior VTE?: No VTE Risk Level:: Medical - moderate - high VTE Device Contraindication: N/A - Device Ordered VTE Drug Contraindication: N/A - Med Ordered
--- NOTE | 2021-11-07 12:14 | MHC.STROKE ---
11/07/20 0800, REPOSITIONED FROM LEFT SIDE TO HER RIGHT, BACK CARE AND LOTION TO KNEE JOINTS. HOB ELEVATED. TOOK SIPS OF WATER. AT 12:15 WE CALLED HER TOGETHER TO GIVE HIM AN UPDATE AND A LIST OF ITEMS TO BRING INTO THE HOSPITAL FOR HER. I ALSO SPOKE WITH DR JACOBO AND I UPDATED THE ON HER CONDITION. I WAS ABLE TO ANSWER ALL OF HIS QUESTIONS. SHE IS NOW RESTING, SHE DOES BECOME VERY SOB JUST IN TALKING AND CHANGING HER POSITION.
--- NOTE | 2021-11-07 14:42 | MHC.CM.PN ---
PER REVIEW OF NOTES, NO PLAN FOR DISCHARGE TODAY. [facility] UPDATED IN [facility] WITH [facility]
[2021-11-07] MEDS: HYDROmorphone HCl 0.5 MG/0.5 ML SYRINGE IVPUSH (22:11)
[2021-11-08 04:00] VITALS: BP 146/65; PULSE 82; RESP 18; TEMP 36.2; O2SAT 99
[2021-11-08] MEDS: vancomycin HCL 125 MG CAPSULE PO ×4 (04:17→21:47)
[2021-11-08 05:51] LABS: Hemoglobin 9.9 g/dl (12.0-16.0); PLT CLUMP 1; Red Cell Distribution Width 15.6 % (11.0-16.0)
[2021-11-08 05:53] LABS: Hematocrit 30.6 % (37.0-47.0); Mean Corpuscular HGB Conc 32.4 g/dl (31.0-35.0); Mean Corpuscular Hemoglobin 30.4 pg (27.0-33.0); Mean Corpuscular Volume 93.9 fL (80.0-98.0); Mean Platelet Volume 11.3 fL (9.4-12.3); Red Blood Count 3.26 X10*6/uL (4.20-5.50)
[2021-11-08 05:55] LABS: Platelet Count 120 X10*3/uL (160-400)
[2021-11-08 06:00] VITALS: BMI 18.6
[2021-11-08 06:26] LABS: Anion Gap 12 (12-20); Blood Urea Nitrogen 19 mg/dL (9-16); Carbon Dioxide 25 mmol/L (22-29); Chloride 110 mmol/L (96-108); Creatinine Clr Calc Pharmacy 57.6; Estimated Glomerular Filt Rate > 60; Glucose Fasting 80 mg/dL (60-99); Magnesium 1.5 mg/dL (1.6-2.6); Potassium 3.1 mmol/L (3.3-5.1); Sodium 144 mmol/L (135-145)
[2021-11-08] MEDS: Magnesium Sulfate/H2O 2 GM/50 ML PIGGYBACK IV (07:51)
[2021-11-08] MEDS: Furosemide 20 MG TABLET PO (07:51)
[2021-11-08] MEDS: Potassium Chloride ER 20 MEQ TAB.ER.PRT 40 MEQ PO (07:52)
[2021-11-08] MEDS: modafiniL 100 MG TABLET PO ×2 (07:52→11:21)
[2021-11-08 07:55] VITALS: BP 145/63; PULSE 89; RESP 18; TEMP 36.8; O2SAT 97
--- NOTE | 2021-11-08 09:58 | HO.PM.IMPN ---
Subjective Subjective Date of Service: 11/08/21 Interval History: ?cc: hypotensive interval history: still with odynophagia, didnt get magic mouthwash yet, still with diarrhea but improving Cardiovascular Cardiovascular: Reports no additional cardiovascular complaints Respiratory Respiratory: Reports no additional respiratory complaints Physical Exam Vital Signs: Vital Signs: Last Vital Signs Temp 98.2 F 11/08/21 07:55 Pulse 89 11/08/21 07:55 Resp 18 11/08/21 07:55 BP 145/63 H 11/08/21 07:55 Pulse Ox 97 11/08/21 07:55 BMI result Body Mass Index 18.6 General: AO X 3, no acute distress Resp:? diminished, cb right base, no accessory muscles used CVS: S1,S2,RRR GI: soft, non tender, non distended Neuro:? 0/5 le, 4/5 upper extremities Psych: appropriate affect, appropriate insight? Objective Data Active Medications Furosemide (Furosemide 20 Mg Tablet) 20 mg PO DAILY [facility]; Protocol Last Admin: 11/08/21 07:51 Dose: 20 mg Documented by: MACEY Hydromorphone HCl (Hydromorphone Hcl 1 Mg/Ml Syringe) 0.5 mg IVPUSH Q1H PRN; Protocol PRN Reason: Pain, Mild (Pain Scale 1-3) Meropenem 1 gm/ Sodium (Chloride) 100 mls @ 200 mls/hr IV Q12H [facility] Last Admin: 11/08/21 09:41 Dose: 200 mls/hr Documented by: MACEY Lidocaine/Diphenhydr/Alum/Mg/Simeth (Mag&Al/Sim/Diphenhyd/Lidocaine 10 Ml Oral.Susp) 10 ml PO Q4H PRN; Protocol PRN Reason: odynophagia Modafinil (Modafinil 100 Mg Tablet) 100 mg PO BID@0800,1200 [facility] Last Admin: 11/08/21 07:52 Dose: 100 mg Documented by: MACEY Ondansetron HCl (Ondansetron Odt 8 Mg Tab.Rapdis) 8 mg TRANSLINGU Q8H PRN PRN Reason: Nausea and Vomiting Vancomycin HCl (Vancomycin Hcl 125 Mg Capsule) 125 mg PO Q6H [facility] Last Admin: 11/08/21 04:17 Dose: 125 mg Documented by: SAV Labs CBC & Chem 7: 11/08/21 05:10 11/08/21 05:10 Labs: Laboratory Results - last 24 hr 11/08/21 11/08/21 05:10 05:10 MCV 93.9 MCH 30.4 MCHC 32.4 RDW 15.6 Plt Count 120 L MPV 11.3 Absolute Nucleated RBC 0.000 Nucleated RBC % (auto) 0.0 Anion Gap 12 Estim Creat Clear Calc 57.6 Estimated GFR > 60 Fasting Glucose 80 Calcium 8.0 L Magnesium 1.5 L Microbiology Microbiology Results: Microbiology 11/03/21 09:47 Blood Culture - Final Blood - Venous Pseudomonas aeruginosa 11/06/21 05:09 Blood Culture - Preliminary Blood - Venous No growth after 48 hours. 11/06/21 05:09 Blood Culture - Preliminary Blood - Venous No growth after 48 hours. 11/03/21 09:40 Blood Culture - Preliminary Blood - Venous Prelim: GNR Gram Stain only Assessment and Plan (1) Sepsis: Status: Acute (2) Recurrent UTI: Status: Acute (3) Bacteremia due to Pseudomonas: Status: Acute Assessment and Plan: a 71-year-old woman with past medical history of very disabling multiple sclerosis.? She also has history of bilateral renal stones, neurogenic urinary bladder, and recurrent UTI. underwent elective cystoscopy, left retrograde ureteroscopy, and laser lithotripsy with stent in the OR here w Dr. Majano.? Postprocedure the patient became tachycardic, hypotensive, w lactic acidosis. septic shock, resolved Pseudomonas bacteremia Patient grew Pseudomonas 11/02 and 11/03, no growth from 11/06 on meropenem ID appreciated - on dc can complete 2 weeks of levaquin po thrombocytopenia Platelets dropping to 94 from 240 3 days ago, now 120 patient on Lovenox Could be secondary to antibiotic, cefepime changed to meropenem, or sepsis follow up hematology Constipation Started on lactulose in ICU, now having diarrhea, CDiff tox gene PCR positive Continue oral vanco for 21 days total Dyspnea Acute on chronic diastolic heart failure by BNP, xray, and echo.? continue lasix right sided pleural effusion IR for possible thoracocentesis acute on chronic Anemia received 1 unit prbc, hgb improved from 7.4 to 9.9, stable DVT PPX SCDs Quality Stroke Does the patient have a stroke diagnosis?: No VTE Prior VTE?: No VTE Risk Level:: Medical - moderate - high VTE Device Contraindication: N/A - Device Ordered VTE Drug Contraindication: N/A - Med Ordered
[2021-11-08 12:00] VITALS: BP 115/65; PULSE 98; RESP 20; TEMP 36.2; O2SAT 98
[2021-11-08 16:00] VITALS: PULSE 89; RESP 20; TEMP 37.1
[2021-11-08 20:00] VITALS: BP 141/66; PULSE 95; RESP 17; TEMP 36.4; O2SAT 97
--- NOTE | 2021-11-08 21:17 | P.CNID_ITS ---
History of Present Illness Data of Consult Service Date: 11/06/21 Requesting physician: Taisha Torres Primary Care Provider: Jakub Santacruz MD HPI Reason for consult: Pseudomonas sepsis She presents to hospital with weakness and found to have leukocytosis. She had Pseudomonas bacteremia and septic shock. She has septic shock after renal stent / Pseudomonas sensitive to quinolones Review of Systems Verdana 4l Review of Systems: Yes all other systems are reviewed and Verdana 4d are negative [facility] Past Medical History Medical History Colon cancer Kidney stones Multiple sclerosis Functional capacity: wheelchair bound Family History Family History Father No problems noted. Mother Kidney disease Maternal Aunt Breast cancer Family history: reviewed and not pertinent Surgical History Surgical History H/O rectal polypectomy Social History Social History Household Members: Significant Other and Children Housing: House Do you presently have visiting nurse or other home services: Yes Alcohol intake: never Patient Tobacco Use Status: Never used Tobacco Second Hand Smoke Exposure: No Advance Directives Date on File: 11/05/21 service: No Meds Allergies Allergy/AdvReac Type Severity Reaction Status Date / Time nystatin Allergy Severe SWOLLEN Verified 09/22/21 14:55 [NYSTATIN] MOUTH Penicillins Allergy Severe SWELLING,HI Verified 09/22/21 14:55 [PENICILLINS] VES ciprofloxacin Allergy Intermediate HIVES Verified 09/22/21 14:55 [CIPROFLOXACIN] clindamycin Allergy Intermediate ITCHYNESS,D Verified 09/22/21 14:55 [CLINDAMYCIN] IARRHEA,HIV ES levofloxacin [From Allergy Intermediate HIVES.ITCHI Verified 09/22/21 14:55 Levaquin] NESS,DIARRH EA Sulfa (Sulfonamide Allergy Intermediate HIVES Verified 09/22/21 14:55 Antibiotics) [SULFA(SULFONAMIDE ANTIBIOTICS)] Active Medications: Current Medications Furosemide (Furosemide 20 Mg Tablet) 20 mg PO DAILY [facility]; Protocol Last Admin: 11/08/21 07:51 Dose: 20 mg Documented by: Hydromorphone HCl (Hydromorphone Hcl 1 Mg/Ml Syringe) 0.5 mg IVPUSH Q1H PRN; Protocol PRN Reason: Pain, Mild (Pain Scale 1-3) Meropenem 1 gm/ Sodium (Chloride) 100 mls @ 200 mls/hr IV Q12H [facility] Last Infusion: 11/08/21 10:13 Dose: Infused Documented by: Lidocaine/Diphenhydr/Alum/Mg/Simeth (Mag&Al/Sim/Diphenhyd/Lidocaine 10 Ml Oral.S intermediate) 10 ml PO Q4H PRN; Protocol PRN Reason: odynophagia Modafinil (Modafinil 100 Mg Tablet) 100 mg PO BID@0800,1200 [facility] Last Admin: 11/08/21 11:21 Dose: 100 mg Documented by: Ondansetron HCl (Ondansetron Odt 8 Mg Tab.Rapdis) 8 mg TRANSLINGU Q8H PRN PRN Reason: Nausea and Vomiting Vancomycin HCl (Vancomycin Hcl 125 Mg Capsule) 125 mg PO Q6H [facility] Last Admin: 11/08/21 15:23 Dose: 125 mg Documented by: Home Medications Medication Instructions Recorded Confirmed Last Taken Type modafinil 200 mg 100 mg PO 08/15/20 11/03/21 Unknown History tablet BID@0800,1200 furosemide 20 mg 20 mg PO DAILY 11/03/21 11/03/21 Unknown History tablet PRN Physical Exam Verdana 4l Vital Signs: Verdana 4d Verdana 4d Vital Signs: Verdana 4d Verdana 4Bd Last Vital Signs Verdana 4d Chief Of Staff New 4d Chief Of Staff New 4d Temp 97.6 F 11/08/21 20:00 Chief Of Staff New 4d Pulse 95 11/08/21 20:00 Chief Of Staff New 4d Resp 17 11/08/21 20:00 BP 141/66 H 11/08/21 20:00 Pulse Ox 97 11/08/21 20:00 BMI result Body Mass Index 18.6 Const: General: cooperative HENMT: Mouth: Normal oral and palatal mucosa present Eyes: Pupils: Equal, round and reactive pupils present Resp: Effort & Inspection: normal respiratory effort Cardio: Rate: regular rate Rhythm: regular rhythm GI: Palpation (GI): Soft to palpation and nontender Skin: General skin exam: no rashes or lesions noted Neuro: Cranial nerves: Yes Equal, round and reactive pupils present Results Labs CBC & Chem 7: 11/12/21 05:18 11/12/21 05:18 Labs: Short CBC 11/08/21 Range/Units 05:10 WBC 13.0 H (4.8-10.8) X10*3/uL Hgb 9.9 L (12.0-16.0) g/dl Hct 30.6 L (37.0-47.0) % Plt Count 120 L (160-400) X10*3/uL BMP 11/08/21 05:10 Sodium 144 Potassium 3.1 L Chloride 110 H Carbon Dioxide 25 BUN 19 H Creatinine 0.76 Calcium 8.0 L Microbiology Microbiology Results: Microbiology 11/03/21 09:40 Blood - Venous Blood Culture - Preliminary Gram negative renae 11/03/21 09:47 Blood - Venous Blood Culture - Final Pseudomonas aeruginosa 11/06/21 05:09 Blood - Venous Blood Culture - Preliminary No growth after 48 hours. 11/06/21 05:09 Blood - Venous Blood Culture - Preliminary No growth after 48 hours. 11/02/21 19:10 Blood - Venous Blood Culture - Final Pseudomonas aeruginosa 11/02/21 19:10 Blood - Venous Blood Culture - Final Pseudomonas aeruginosa Assessment and Plan (1) Bacteremia due to Pseudomonas: Status: Resolved She is sensitive to Levaquin Leukemoid reaction may be due to infection or Cdiff po Levaquin for 14 days (2) C. difficile colitis: Status: Acute Plan Likely still Cdiff Po Vancomycin for 21 days
[2021-11-09] VITALS: BP 132/63; PULSE 87; RESP 16; TEMP 36.3; O2SAT 97
--- NOTE | 2021-11-09 | ECG_ITS ---
Test Reason : cp Blood Pressure : / mmHG Vent. Rate : 105 BPM Atrial Rate : 105 BPM P-R Int : 114 ms QRS Dur : 078 ms QT Int : 350 ms P-R-T Axes : 084 -11 077 degrees QTc Int : 462 ms Sinus tachycardia Nonspecific ST and T wave abnormality Abnormal ECG When compared with ECG of 04-NOV-2021 11:18, No significant change was found Referred By: Robin Arredondo Electronically Signed By:VIRGIE NINO
[2021-11-09] MEDS: HYDROmorphone HCl 1 MG/ML SYRINGE 0.5 MG IVPUSH (00:08)
[2021-11-09] MEDS: vancomycin HCL 125 MG CAPSULE PO ×4 (03:59→21:25)
[2021-11-09 05:56] LABS: Hematocrit 31.6 % (37.0-47.0); Hemoglobin 10.1 g/dl (12.0-16.0); Mean Corpuscular Hemoglobin 29.9 pg (27.0-33.0); Mean Corpuscular Volume 93.5 fL (80.0-98.0); Mean Platelet Volume 11.2 fL (9.4-12.3); Platelet Count 158 X10*3/uL (160-400); Red Blood Count 3.38 X10*6/uL (4.20-5.50); Red Cell Distribution Width 15.3 % (11.0-16.0)
[2021-11-09 06:00] VITALS: BMI 17.6
[2021-11-09 06:38] LABS: Anion Gap 10 (12-20); Blood Urea Nitrogen 18 mg/dL (9-16); Calcium 8.3 mg/dL (8.4-10.2); Carbon Dioxide 28 mmol/L (22-29); Chloride 108 mmol/L (96-108); Creatinine Clr Calc Pharmacy 54.1; Estimated Glomerular Filt Rate > 60; Glucose Fasting 84 mg/dL (60-99); Sodium 142 mmol/L (135-145)
[2021-11-09] MEDS: Furosemide 20 MG TABLET PO (07:34)
[2021-11-09] MEDS: modafiniL 100 MG TABLET PO ×2 (07:34→12:09)
[2021-11-09 07:35] VITALS: BP 136/64; PULSE 90; RESP 17; TEMP 35.9; O2SAT 94
--- NOTE | 2021-11-09 10:00 | PM.UROPN ---
Subjective Subjective Date of Service: 11/09/21 Interval history: Slow recovery Creatinine stable White count trending down Final diagnosis Pseudomonas sepsis Discussed protein supplementation She feels she is getting a dry mouth and may have the onset of thrush. Magic mouthwash ordered Physical Exam Vital Signs: Vital Signs: Last Vital Signs Temp 96.7 F L 11/09/21 07:35 Pulse 90 11/09/21 07:35 Resp 17 11/09/21 07:35 BP 136/64 11/09/21 07:35 Pulse Ox 94 11/09/21 07:35 BMI result Body Mass Index 17.6 Const: General: cooperative, healthy appearing, comfortable and no acute distress Orientation/consciousness: patient oriented x3 HENMT: Face and sinus: Yes normal facial exam Mouth: moist mucous membranes Neck: Neck: Yes normal visual inspection, Yes full ROM and Yes trachea midline Chest: Chest palpation & inspection: normal inspection of the chest Resp: Effort & Inspection: normal respiratory effort, able to speak in complete sentences and no respiratory distress GI: Inspection: Yes normal to inspection Back/Spine/Pelvis: Cervical Spine: normal cervical lordosis Thoracic/Lumbar Spine: thoracic and lumbar spine normal to inspection Skin: General skin exam: no rashes or lesions noted Neuro: General: patient oriented x3, tone normal and moves all extremities Extrem: General: Yes normal to inspection and Yes capillary refill normal Urology Results Labs CBC & Chem 7: 11/09/21 05:42 11/09/21 05:40 Labs: Laboratory Results - last 24 hr 11/09/21 11/09/21 05:40 05:42 WBC 13.0 H RBC 3.38 L Hgb 10.1 L Hct 31.6 L MCV 93.5 MCH 29.9 MCHC 32.0 RDW 15.3 Plt Count 158 L D MPV 11.2 Absolute Nucleated RBC 0.000 Nucleated RBC % (auto) 0.0 Sodium 142 Potassium 4.0 D Chloride 108 Carbon Dioxide 28 Anion Gap 10 L BUN 18 H Creatinine 0.76 Estim Creat Clear Calc 54.1 Estimated GFR > 60 Fasting Glucose 84 Calcium 8.3 L Progress Note: A&P Assessment and plan (1) Bacteremia due to Pseudomonas: Status: Acute (2) Sepsis: Status: Acute (3) Neurogenic urinary bladder disorder: Status: Acute (4) Bilateral nephrolithiasis: Status: Acute Assessment and Plan: Will need stent removal and procedure on right side to be performed in 3-4 weeks Fall Risk Details Current Medications: Current Medications Furosemide (Furosemide 20 Mg Tablet) 20 mg PO DAILY [facility]; Protocol Last Admin: 11/09/21 07:34 Dose: 20 mg Documented by: Hydromorphone HCl (Hydromorphone Hcl 1 Mg/Ml Syringe) 0.5 mg IVPUSH Q1H PRN; Protocol PRN Reason: Pain, Mild (Pain Scale 1-3) Last Admin: 11/09/21 00:08 Dose: 0.5 mg Documented by: Meropenem 1 gm/ Sodium (Chloride) 100 mls @ 200 mls/hr IV Q12H [facility] Last Infusion: 11/08/21 22:19 Dose: Infused Documented by: Lidocaine/Diphenhydr/Alum/Mg/Simeth (Mag&Al/Sim/Diphenhyd/Lidocaine 10 Ml Oral.Susp) 10 ml PO Q4H PRN; Protocol PRN Reason: odynophagia Modafinil (Modafinil 100 Mg Tablet) 100 mg PO BID@0800,1200 [facility] Last Admin: 11/09/21 07:34 Dose: 100 mg Documented by: Ondansetron HCl (Ondansetron Odt 8 Mg Tab.Rapdis) 8 mg TRANSLINGU Q8H PRN PRN Reason: Nausea and Vomiting Vancomycin HCl (Vancomycin Hcl 125 Mg Capsule) 125 mg PO Q6H [facility] Last Admin: 11/09/21 03:59 Dose: 125 mg Documented by: Time Spent With Patient Time: Total time spent is greater than 50% in coordination of care (as documented) at patient's floor/unit and/or counseling patient: Time with patient: less than 15 minutes No Severe Sepsis: No Severe Sepsis Progress Note: Quality Stroke Does the patient have a stroke diagnosis?: No
--- NOTE | 2021-11-09 10:40 | HO.PM.IMPN ---
Subjective Subjective Date of Service: 11/09/21 Interval History: ?cc: hypotensive interval history: still with diarrhe and sob Cardiovascular Cardiovascular: Reports no additional cardiovascular complaints Respiratory Respiratory: Reports no additional respiratory complaints Physical Exam Vital Signs: Vital Signs: Last Vital Signs Temp 96.7 F L 11/09/21 07:35 Pulse 90 11/09/21 07:35 Resp 17 11/09/21 07:35 BP 136/64 11/09/21 07:35 Pulse Ox 94 11/09/21 07:35 BMI result Body Mass Index 17.6 General: AO X 3, no acute distress Resp:? diminished, cb right base, no accessory muscles used CVS: S1,S2,RRR GI: soft, non tender, non distended Neuro:? 0/5 le, 4/5 upper extremities Psych: appropriate affect, appropriate insight? Objective Data Active Medications Furosemide (Furosemide 20 Mg Tablet) 20 mg PO DAILY [facility]; Protocol Last Admin: 11/09/21 07:34 Dose: 20 mg Documented by: MATILDE Hydromorphone HCl (Hydromorphone Hcl 1 Mg/Ml Syringe) 0.5 mg IVPUSH Q1H PRN; Protocol PRN Reason: Pain, Mild (Pain Scale 1-3) Last Admin: 11/09/21 00:08 Dose: 0.5 mg Documented by: WILL Meropenem 1 gm/ Sodium (Chloride) 100 mls @ 200 mls/hr IV Q12H [facility] Last Admin: 11/09/21 10:20 Dose: 200 mls/hr Documented by: MATILDE Lidocaine/Diphenhydr/Alum/Mg/Simeth (Mag&Al/Sim/Diphenhyd/Lidocaine 10 Ml Oral.Susp) 10 ml PO Q4H PRN; Protocol PRN Reason: odynophagia Lidocaine/Diphenhydr/Alum/Mg/Simeth (Mag&Al/Sim/Diphenhyd/Lidocaine 10 Ml Oral.Susp) 10 ml PO Q6H PRN; Protocol PRN Reason: Dry Mouth Modafinil (Modafinil 100 Mg Tablet) 100 mg PO BID@0800,1200 [facility] Last Admin: 11/09/21 07:34 Dose: 100 mg Documented by: MATILDE Ondansetron HCl (Ondansetron Odt 8 Mg Tab.Rapdis) 8 mg TRANSLINGU Q8H PRN PRN Reason: Nausea and Vomiting Vancomycin HCl (Vancomycin Hcl 125 Mg Capsule) 125 mg PO Q6H [facility] Last Admin: 11/09/21 10:18 Dose: 125 mg Documented by: MATILDE Labs CBC & Chem 7: 11/09/21 05:42 11/09/21 05:40 Labs: Laboratory Results - last 24 hr 11/09/21 11/09/21 05:40 05:42 MCV 93.5 MCH 29.9 MCHC 32.0 RDW 15.3 Plt Count 158 L D MPV 11.2 Absolute Nucleated RBC 0.000 Nucleated RBC % (auto) 0.0 Anion Gap 10 L Estim Creat Clear Calc 54.1 Estimated GFR > 60 Fasting Glucose 84 Calcium 8.3 L Microbiology Microbiology Results: Microbiology 11/03/21 09:40 Blood Culture - Final Blood - Venous Pseudomonas aeruginosa 11/03/21 09:47 Blood Culture - Final Blood - Venous Pseudomonas aeruginosa 11/06/21 05:09 Blood Culture - Preliminary Blood - Venous No growth after 48 hours. 11/06/21 05:09 Blood Culture - Preliminary Blood - Venous No growth after 48 hours. Assessment and Plan (1) Sepsis: Status: Acute (2) Recurrent UTI: Status: Acute (3) Bacteremia due to Pseudomonas: Status: Acute Assessment and Plan: a 71-year-old woman with past medical history of very disabling multiple sclerosis.? She also has history of bilateral renal stones, neurogenic urinary bladder, and recurrent UTI. underwent elective cystoscopy, left retrograde ureteroscopy, and laser lithotripsy with stent in the OR here w Dr. Majano.? Postprocedure the patient became tachycardic, hypotensive, w lactic acidosis. septic shock, resolved Pseudomonas bacteremia Patient grew Pseudomonas 11/02 and 11/03, no growth from 11/06 on meropenem ID appreciated - on dc can complete 2 weeks total of levaquin po thrombocytopenia Platelets dropping to 94 from 240 3 days ago, now 158 patient on Lovenox Could be secondary to antibiotic, cefepime changed to meropenem, or sepsis Constipation Started on lactulose in ICU, now having diarrhea, CDiff tox gene PCR positive Continue oral vanco for 21 days total Dyspnea Acute on chronic diastolic heart failure and right pleural effusion by BNP, xray, and echo.? continue lasix right sided pleural effusion IR for thoracocentesis today acute on chronic Anemia received 1 unit prbc, hgb improved from 7.4 to 9.9, stable DVT PPX SCDs Quality Stroke Does the patient have a stroke diagnosis?: No VTE Prior VTE?: No VTE Risk Level:: Medical - moderate - high VTE Device Contraindication: N/A - Device Ordered VTE Drug Contraindication: N/A - Med Ordered
[2021-11-09 11:08] VITALS: BP 136/60; PULSE 95; RESP 18; TEMP 36.4; O2SAT 98
--- NOTE | 2021-11-09 13:06 | MHC.CLN ---
NUTRITION CONSULT AND F/U CONSULT FOR PROBABLY POOR INTAKE WITH PRESSURE INJURY. CURRENTLY NPO. RESUME REGULAR DIET WITH ENSURE BID WHEN APPROPRIATE. VARIABLE INTAKE PRIOR TO NPO, 25-75%. SKIN WITH STAGE I TO MEDIAL BUTTOCK. CONTINUE TO MONITOR SKIN, DIET ADVANCEMENT, PO INTAKE.
--- NOTE | 2021-11-09 14:29 | MHC.CM.PN ---
nurse case management , electronic medical record reviewed and case discussed [facility] staff nurse . (patient continues on iv analgeics for pain , iv abx for her documentated bacteremia, psedudomonas neurogenic bladder ) patient will hqve outpatient stent removed procedure as outpatient 3-4 weeks. discharge plan resuimption of her [place] [facility] for nrusign diagnosis sign symptom management , medication reconcilation, and 65 hours of [employer] liv3 with her and son. wheelchair bounds at [facility] pcp dr reji amaya has coivd vacination transport may need asssitance at time odf discharge .
[2021-11-09] MEDS: Lidocaine HCl 1 % MPF 5 ML VIAL SUBCUT (17:12)
[2021-11-09 17:29] LABS: MN% 31.6 %; PMN% 68.4 %; RBC Pleural Fluid 0.002 X10*3/uL; WBC Pleural Fluid 2.497 X10*3/uL
[2021-11-09 18:09] LABS: Lymphocytes Pleural Fluid 23 %; Neutrophils Pleural Fluid 64 %
[2021-11-09 18:10] LABS: BF Shift QC OK YES; Eosinophils Pleural Fluid 0 %; Monocytes Pleural Fluid 11 %; Other Cells Plerual Fl 2 %
[2021-11-09 18:11] LABS: Basophils Pleural Fluid 0 %
[2021-11-09 19:46] VITALS: BP 143/62; PULSE 98; RESP 18; TEMP 36.4; O2SAT 99
[2021-11-10] VITALS: BP 128/45; PULSE 79; RESP 16; TEMP 36.2; O2SAT 96
[2021-11-10] MEDS: vancomycin HCL 125 MG CAPSULE PO ×4 (03:45→20:43)
[2021-11-10] MEDS: HYDROmorphone HCl 1 MG/ML SYRINGE 0.5 MG IVPUSH (03:58)
[2021-11-10 04:00] VITALS: BP 105/71; PULSE 94; RESP 16; TEMP 36.7; O2SAT 95
[2021-11-10 06:00] VITALS: BMI 18.3
--- NOTE | 2021-11-10 06:11 | PC.NURSE ---
Pt had a burst of SVT to the 160s passed 3am, at that time pt is c/o back pain 05/09 and being medicated with prn Dilaudid, Vitals are WNL when checked, went back to SR at 90s after, pt denies any CP Dr. Pardo was notified. Pt verbalized relief from back pain after revisited.
[2021-11-10 06:59] LABS: Hematocrit 33.9 % (37.0-47.0); Hemoglobin 10.5 g/dl (12.0-16.0); Mean Corpuscular Hemoglobin 29.4 pg (27.0-33.0); Platelet Count 225 X10*3/uL (160-400); Red Blood Count 3.57 X10*6/uL (4.20-5.50); Red Cell Distribution Width 15.1 % (11.0-16.0); White Blood Count 14.6 X10*3/uL (4.8-10.8)
[2021-11-10 07:24] LABS: Anion Gap 15 (12-20); Blood Urea Nitrogen 20 mg/dL (9-16); Calcium 8.1 mg/dL (8.4-10.2); Carbon Dioxide 27 mmol/L (22-29); Chloride 105 mmol/L (96-108); Creatinine Clr Calc Pharmacy 46.8; Estimated Glomerular Filt Rate > 60; Glucose Fasting 96 mg/dL (60-99); Potassium 4.5 mmol/L (3.3-5.1); Sodium 142 mmol/L (135-145)
[2021-11-10 07:27] VITALS: BP 147/67; PULSE 89; RESP 18; TEMP 36.1; O2SAT 98
[2021-11-10 08:43] LABS: LDH Pleural Fluid 174
[2021-11-10] MEDS: modafiniL 100 MG TABLET PO ×2 (09:17→14:06)
[2021-11-10] MEDS: Furosemide 20 MG TABLET PO (09:17)
--- NOTE | 2021-11-10 10:10 | P.CDIC_ITS ---
CDI Concurrent Query Documentation Clarification: PHYSICIAN'S DOCUMENTATION REQUEST Date of Query: 11/10/21 1011 Patient Name: Joy Street Admit Date: 11/02/21 Dear Doctor, A review of the medical record indicates additional documentation may be needed. Please review below and update the documentation accordingly. Risk Factors/Clinical Indicators/Treatments Nutrition notes - Underweight with BMI 17.6 Add Ensure BID, mild depletion of muscle mass. If possible, please provide an associated diagnosis related to the abnormal BMI, such as: For a BMI <= 19: * Underweight * Weight loss * Cachexia * Anorexia Or: * BMI is not significant * Other (please specify) * Unable to determine Use of terms such as suspected, likely, concern for, or probable (associated with a specific diagnosis that is being evaluated, monitored, or treated as if it exists) are acceptable and can be coded in the inpatient setting, when documented at the time of discharge. Thank you, Marilu Matos [facility], CDIS Extension: [phone] Please use your independent medical judgment in providing your response. THIS QUERY IS PART OF THE PERMANENT MEDICAL RECORD Provider Response: Mild Protein-Calorie Malnutrition
--- NOTE | 2021-11-10 10:15 | P.CDIC_ITS ---
CDI Concurrent Query Documentation Clarification: PHYSICIAN'S DOCUMENTATION REQUEST Date of Query: 11/10/21 1015 Patient Name: Joy Street Admit Date: 11/02/21 Dear Doctor, A review of the medical record indicates additional documentation may be indicated. Please review below and update the documentation accordingly. Risk Factors/Clinical Indicators/Treatments Wound assessment noted Pressure Injury Stage I medial buttocks. Barrier cream, air loss bed. Based on the above, could you please provide, in the Progress Notes, further i nformation regarding the ulcer/wound: * Location of the ulcer/wound, including laterality * Other * For a non-pressure ulcer, please indicate the depth/severity: * Limited to the breakdown of skin * Other * If a pressure ulcer, please also include the stage* of the ulcer: * Stage 1 - Skin intact, non-blanchable redness * Stage 2 - Partial thickness loss of dermis, includes intact or open blister * Unable to determine *Source: National Pressure Ulcer Advisory Panel (NPUAP) Use of terms such as suspected, likely, concern for, or probable (associated with a specific diagnosis that is being evaluated, monitored, or treated as if it exists) are acceptable and can be coded in the inpatient setting, when documented at the time of discharge. Thank you, Marilu Matos [facility], CDIS Extension: [phone] Please use your independent medical judgment in providing your response. THIS QUERY IS PART OF THE PERMANENT MEDICAL RECORD Provider Response: Other Other Diagnosis: stage 1 pressure ulcer buttocks - offloading
--- NOTE | 2021-11-10 10:15 | MHC.CDI.CONC ---
CDI Concurrent Query Documentation Clarification: PHYSICIAN'S DOCUMENTATION REQUEST Date of Query: 11/10/21 1015 Patient Name: Joy Street Admit Date: 11/02/21 Dear Doctor, A review of the medical record indicates additional documentation may be indicated. Please review below and update the documentation accordingly. Risk Factors/Clinical Indicators/Treatments Wound assessment noted Pressure Injury Stage I medial buttocks. Barrier cream, air loss bed. Based on the above, could you please provide, in the Progress Notes, further information regarding the ulcer/wound: Location of the ulcer/wound, including laterality Other For a non-pressure ulcer, please indicate the depth/severity: Limited to the breakdown of skin Other If a pressure ulcer, please also include the stage* of the ulcer: Stage 1 - Skin intact, non-blanchable redness Stage 2 - Partial thickness loss of dermis, includes intact or open blister Unable to determine *Source: National Pressure Ulcer Advisory Panel (NPUAP) Use of terms such as suspected, likely, concern for, or probable (associated with a specific diagnosis that is being evaluated, monitored, or treated as if it exists) are acceptable and can be coded in the inpatient setting, when documented at the time of discharge. Thank you, Marilu Matos [facility], CDIS Extension: [phone] Please use your independent medical judgment in providing your response. THIS QUERY IS PART OF THE PERMANENT MEDICAL RECORD Provider Response: Other Other Diagnosis: stage 1 pressure ulcer buttocks - offloading
[2021-11-10 11:19] VITALS: BP 139/65; PULSE 95; RESP 20; TEMP 36.3; O2SAT 98
--- NOTE | 2021-11-10 11:56 | P.PNIM_ITS ---
Subjective Subjective Date of Service: 11/10/21 Interval History: cc: hypotension interval history: sob improved, diarrhea resolved Cardiovascular Cardiovascular: Reports no additional cardiovascular complaints Gastrointestinal Gastrointestinal: Reports no additional gastrointestinal complaints Physical Exam Vital Signs: Vital Signs: Last Vital Signs Temp 97.3 F 11/10/21 11:19 Pulse 95 11/10/21 11:19 Resp 20 11/10/21 11:19 BP 139/65 11/10/21 11:19 Pulse Ox 98 11/10/21 11:19 BMI result Body Mass Index 18.3 General: AO X 3, no acute distress Resp:? diminished, cb right base, no accessory muscles used CVS: S1,S2,RRR GI: soft, non tender, non distended Neuro:? 0/5 le, 4/5 upper extremities Psych: appropriate affect, appropriate insight? Objective Data Active Medications Furosemide (Furosemide 20 Mg Tablet) 20 mg PO DAILY [facility]; Protocol Last Admin: 11/10/21 09:17 Dose: 20 mg Documented by: SERENA Hydromorphone HCl (Hydromorphone Hcl 1 Mg/Ml Syringe) 0.5 mg IVPUSH Q1H PRN; Protocol PRN Reason: Pain, Mild (Pain Scale 1-3) Last Admin: 11/10/21 03:58 Dose: 0.5 mg Documented by: WILL Meropenem 1 gm/ Sodium (Chloride) 100 mls @ 200 mls/hr IV Q12H [facility] Last Infusion: 11/10/21 10:01 Dose: 0 mls/hr Documented by: SERENA Lidocaine/Diphenhydr/Alum/Mg/Simeth (Mag&Al/Sim/Diphenhyd/Lidocaine 10 Ml Oral.Susp) 10 ml PO Q4H PRN; Protocol PRN Reason: odynophagia Lidocaine/Diphenhydr/Alum/Mg/Simeth (Mag&Al/Sim/Diphenhyd/Lidocaine 10 Ml Oral.Susp) 10 ml PO Q6H PRN; Protocol PRN Reason: Dry Mouth Modafinil (Modafinil 100 Mg Tablet) 100 mg PO BID@0800,1200 [facility] Last Admin: 11/10/21 09:17 Dose: 100 mg Documented by: SERENA Ondansetron HCl (Ondansetron Odt 8 Mg Tab.Rapdis) 8 mg TRANSLINGU Q8H PRN PRN Reason: Nausea and Vomiting Vancomycin HCl (Vancomycin Hcl 125 Mg Capsule) 125 mg PO Q6H [facility] Last Admin: 11/10/21 10:07 Dose: 125 mg Documented by: SERENA Labs CBC & Chem 7: 11/10/21 06:38 11/10/21 06:37 Labs: Laboratory Results - last 24 hr 11/09/21 11/09/21 11/10/21 16:30 16:30 06:37 MCV MCH MCHC RDW Plt Count MPV Absolute Nucleated RBC Nucleated RBC % (auto) Anion Gap 15 Estim Creat Clear Calc 46.8 Estimated GFR > 60 Fasting Glucose 96 Calcium 8.1 L Pleural WBC 2.497 Pleural RBC 0.002 Pleural Neutrophils 64 Pleural Lymphocytes 23 Pleural Monocytes 11 Pleural Eosinophils 0 Pleural Basophils 0 Pleural Other Cells 2 Pleural Total Protein 3.0 Pleural LDH 174 11/10/21 06:38 MCV 95.0 MCH 29.4 MCHC 31.0 RDW 15.1 Plt Count 225 D MPV 11.0 Absolute Nucleated RBC 0.000 Nucleated RBC % (auto) 0.0 Anion Gap Estim Creat Clear Calc Estimated GFR Fasting Glucose Calcium Pleural WBC Pleural RBC Pleural Neutrophils Pleural Lymphocytes Pleural Monocytes Pleural Eosinophils Pleural Basophils Pleural Other Cells Pleural Total Protein Pleural LDH Microbiology Microbiology Results: Microbiology 11/03/21 09:40 Blood Culture - Final Blood - Venous Pseudomonas aeruginosa Assessment and Plan (1) Sepsis: Status: Acute (2) Recurrent UTI: Status: Acute (3) Bacteremia due to Pseudomonas: Status: Acute Assessment and Plan: a 71-year-old woman with past medical history of very disabling multiple sclerosis.? She also has history of bilateral renal stones, neurogenic urinary bladder, and recurrent UTI. underwent elective cystoscopy, left retrograde ureteroscopy, and laser lithotripsy with stent in the OR here w Dr. Majano.? Postprocedure the patient became tachycardic, hypotensive, w lactic acidosis. septic shock, resolved Pseudomonas bacteremia Patient grew Pseudomonas 11/02 and 11/03, no growth from 11/06 on meropenem plan was to dc on po levaquin, however, patient reports allergy with hives reaction d/w ID, will plan for 9 more days (end 11/19/21) of meropenem 1gm q8, patient does already have port, would prefer to be discharged home. thrombocytopenia resolved, was cefepime vs sepsis Constipation resolved CDiff tox gene PCR positive Continue oral vanco for 21 days total Dyspnea Acute on chronic diastolic heart failure and bilateral pleural effusion by BNP, xray, and echo.? continue lasix resolved bilateral pleural effusion not enough fluid to drain on right loculated effusion left was drained 400cc, CXR improved, sob improved acute on chronic Anemia received 1 unit prbc, hgb improved from 7.4 to 9.9, stable now around 10 DVT PPX SCDs Quality Stroke Does the patient have a stroke diagnosis?: No VTE Prior VTE?: No VTE Risk Level:: Medical - moderate - high VTE Device Contraindication: N/A - Device Ordered VTE Drug Contraindication: N/A - Med Ordered
--- NOTE | 2021-11-10 13:08 | MHC.CM.PN ---
NURSE GARNETT MECHANIC NOTE ELECTRONIC MEDICAL RECORD REVIEWED ALONG WITH CASE DISCUSSED WITH HOSPITLAIST. , PATIENT WILL NOW NEED IV MEROPENEUM 1 GM IV Q8HRS, FOR 9 DAYS (I SPOKE WITH HOSPITALIST PATIENT CQAN NOT BE PLAVCED ON IV ERAPENTEUM IT DOES NOT COVER HER PSEUDOMONAS ). SHE WILL HAVE A MIDLINE PLACED LATER TODAY OR TOMORROW AND WILL NEED TO START ON FIRST DOSE OF IV ABX BEFORE BEING DISCHARGED HOME , DISCHAGRE PLAN [facility] OFR IV MEROPENEUM 1 GM Q8HRS FOR 9 DAYS [facility] WILL RUN THE INS AND CHECK THE [facility]SP[facility] OR MAY NEED S [facility]FUSION SUPPLIER OF THE MEDICATION
--- NOTE | 2021-11-10 14:27 | MHC.CLN ---
RE: CONSULT RECOMMEND RE-STARTING SUPPLEMENT PT RECEPTIVE TO DRINKING ENSURE BID (STRAWBERRY FLAVOR) WILL ADD ENSURE BID TO PROVIDE 700KCALS, 40G PROTEIN CONTINUE TO MONITOR PO INTAKE
[2021-11-10 15:44] VITALS: BP 128/61; PULSE 87; RESP 16; TEMP 36.6; O2SAT 97
[2021-11-10 19:53] VITALS: BP 149/67; PULSE 84; RESP 17; TEMP 36.2; O2SAT 99
[2021-11-10] MEDS: Ondansetron ODT 8 MG TAB.RAPDIS TRANSLINGU (22:59)
[2021-11-11] VITALS (8 sets, daily range): BP systolic 118–154; BP diastolic 50–72; PULSE 74–107; RESP 15–20; TEMP 36.2–36.9; O2SAT 94–99; BMI 17.7
[2021-11-11] MEDS: vancomycin HCL 125 MG CAPSULE PO ×4 (04:30→22:14)
[2021-11-11] MEDS: modafiniL 100 MG TABLET PO ×2 (07:41→12:16)
[2021-11-11] MEDS: HYDROmorphone HCl 1 MG/ML SYRINGE 0.5 MG IVPUSH (07:42)
--- NOTE | 2021-11-11 11:27 | HO.PM.IMPN ---
Subjective Subjective Date of Service: 11/11/21 Interval History: the patient was seen and evaluated this morning Laying in bed, feels much better today but overall still having some weakness. Blood cultures positive for Pseudomonas aeruginosa Denies any fever, chills or shortness of breath No reported other overnight events. Systemic review: No fever, chills but reports generalized weakness No chest pain, palpitation No shortness of breath or coughing No abdominal pain, nausea or vomiting No urinary symptoms No any rash or wounds Physical Exam Vital Signs: Vital Signs: Last Vital Signs Temp 97.2 F 11/11/21 08:00 Pulse 99 11/11/21 08:00 Resp 15 11/11/21 08:00 BP 142/65 H 11/11/21 08:00 Pulse Ox 94 11/11/21 08:00 BMI result Body Mass Index 17.7 Const: Other: Constitutional : Alert, oriented, not in distress Neck : Normal inspection, Supple Cardiovascular : RRR, S1 S2, no lower extremity edema Respiratory : Good bilateral air entry, no crackles, wheezes or rhonchi Gastrointestinal: soft, lax, Normal bowel sounds, Non tender Skin : Warm, Dry Neurological : Alert & oriented x3, left-sided weakness mainly on the lower extremity Objective Data Active Medications Furosemide (Furosemide 20 Mg Tablet) 20 mg PO DAILY [facility]; Protocol Last Admin: 11/11/21 09:05 Dose: Not Given Documented by: KRISTINA Non-Admin Reason: n/a Hydromorphone HCl (Hydromorphone Hcl 1 Mg/Ml Syringe) 0.5 mg IVPUSH Q1H PRN; Protocol PRN Reason: Pain, Mild (Pain Scale 1-3) Last Admin: 11/11/21 07:42 Dose: 0.5 mg Documented by: KRISTINA Meropenem 1 gm/ Sodium (Chloride) 100 mls @ 200 mls/hr IV Q12H [facility] Last Infusion: 11/11/21 09:51 Dose: 200 mls/hr Documented by: KRISTINA Lidocaine/Diphenhydr/Alum/Mg/Simeth (Mag&Al/Sim/Diphenhyd/Lidocaine 10 Ml Oral.Susp) 10 ml PO Q4H PRN; Protocol PRN Reason: odynophagia Lidocaine/Diphenhydr/Alum/Mg/Simeth (Mag&Al/Sim/Diphenhyd/Lidocaine 10 Ml Oral.Susp) 10 ml PO Q6H PRN; Protocol PRN Reason: Dry Mouth Modafinil (Modafinil 100 Mg Tablet) 100 mg PO BID@0800,1200 [facility] Last Admin: 11/11/21 07:41 Dose: 100 mg Documented by: KRISTINA Ondansetron HCl (Ondansetron Odt 8 Mg Tab.Rapdis) 8 mg TRANSLINGU Q8H PRN PRN Reason: Nausea and Vomiting Last Admin: 11/10/21 22:59 Dose: 8 mg Documented by: SIMON Vancomycin HCl (Vancomycin Hcl 125 Mg Capsule) 125 mg PO Q6H [facility] Last Admin: 11/11/21 04:30 Dose: 125 mg Documented by: SEXK Labs CBC & Chem 7: 11/10/21 06:38 11/10/21 06:37 Microbiology Microbiology Results: Microbiology 11/06/21 05:09 Blood Culture - Final Blood - Venous No growth after 5 days. 11/06/21 05:09 Blood Culture - Final Blood - Venous No growth after 5 days. Assessment and Plan (1) Thrombocytopenia: Status: Acute (2) Ileus: Status: Acute (3) C. difficile colitis: Status: Acute (4) Bacteremia due to Pseudomonas: Status: Acute Assessment and Plan: a 71-year-old woman with past medical history of very disabling multiple sclerosis.? She also has history of bilateral renal stones, neurogenic urinary bladder, and recurrent UTI. underwent elective cystoscopy, left retrograde ureteroscopy, and laser lithotripsy with stent in the OR here w Dr. Majano.? Postprocedure the patient became tachycardic, hypotensive, w lactic acidosis. septic shock, resolved Pseudomonas bacteremia Patient? grew Pseudomonas 11/02 and 11/03, no growth from 11/06 on meropenem Plan to DC on meropenem for total of 14 days Thompson line placed d/w ID, will plan for 9 more days (end 11/19/21) of meropenem 1gm q8, would prefer to be discharged home. ?thrombocytopenia resolved, was cefepime vs sepsis Constipation resolved CDiff tox gene PCR positive Continue oral vanco for 21 days total Dyspnea Acute on chronic diastolic heart failure and bilateral? pleural effusion by BNP, xray, and echo.? continue lasix resolved bilateral pleural effusion not enough fluid to drain on right loculated effusion left was drained 400cc, CXR improved, sob improved ?acute on chronic Anemia received 1 unit prbc, hgb improved from 7.4 to 9.9, stable now around 10 DVT PPX SCDs Quality Stroke Does the patient have a stroke diagnosis?: No VTE Prior VTE?: No VTE Risk Level:: Medical - moderate - high VTE Device Contraindication: N/A - Device Ordered VTE Drug Contraindication: N/A - Med Ordered
[2021-11-11] MEDS: Lidocaine HCl 1 % 20 ML VIAL 5 ML INFILTRATI (11:36)
[2021-11-11] MEDS: Furosemide 20 MG TABLET PO (12:19)
--- NOTE | 2021-11-11 12:58 | MHC.CM.PN ---
nurse case management associate note. electronic medicalmrecord reviewed along with case discussed with staff nurse and hospitalist covering for today. sudheer driver from [employer] came in today at 10;30 for iv [facility]za iabx teach, with demonstration to and son (they have recived videos the day before ), both successfully were able to redemonstrate and verbalize back the process successfullt , she spoke with birgit at the [facility] , she spoke with her complaint evaluation supervisor and patient will have the abx delivered in the am and recive her last dose abx at 6am tomorrow am 11/12/21 and the next dose will be at 2pm so the hvna can be out there , discharge bplan home with and son tomorrow 11/12/21 [facility] to deliver iv abx and alll supplies tomorrow am [facility] to to be ou at 2pm to open cASE AND EDUCATED WITH THE [facility] CATH AND IV ABX ADMINISTRATION AND LINE FLUSHING AND LAB SRAWS AND [facility] LINE DRESSING CHANGES SELF 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
--- NOTE | 2021-11-11 14:24 | MHC.CLN ---
F/U DIET=REGULAR, ENSURE SUPPLEMENT BID. ENSURE PROVIDES 700 KCAL, 40 G PROTEIN. INTAKE VARIABLE, 25-75%. STAGE I TO BUTTOCK. CONTINUE TO MONITOR PO INTAKE.
[2021-11-11] MEDS: Ondansetron ODT 8 MG TAB.RAPDIS TRANSLINGU (16:45)
[2021-11-12] VITALS: BP 133/66; PULSE 85; RESP 18; TEMP 36.6; O2SAT 96
[2021-11-12 03:24] VITALS: BP 113/53; PULSE 87; RESP 18; TEMP 36.3; O2SAT 99
[2021-11-12] MEDS: vancomycin HCL 125 MG CAPSULE PO ×3 (04:32→14:57)
[2021-11-12 06:00] VITALS: BMI 17.9
[2021-11-12 06:17] LABS: Hematocrit 31.4 % (37.0-47.0); Hemoglobin 9.8 g/dl (12.0-16.0); Mean Corpuscular HGB Conc 31.2 g/dl (31.0-35.0); Mean Corpuscular Hemoglobin 30.1 pg (27.0-33.0); Mean Corpuscular Volume 96.3 fL (80.0-98.0); Mean Platelet Volume 10.5 fL (9.4-12.3); Platelet Count 358 X10*3/uL (160-400); Red Blood Count 3.26 X10*6/uL (4.20-5.50); Red Cell Distribution Width 14.6 % (11.0-16.0); White Blood Count 8.6 X10*3/uL (4.8-10.8)
[2021-11-12 06:52] LABS: Anion Gap 11 (12-20); Blood Urea Nitrogen 25 mg/dL (9-16); Calcium 8.1 mg/dL (8.4-10.2); Carbon Dioxide 27 mmol/L (22-29); Chloride 104 mmol/L (96-108); Creatinine Clr Calc Pharmacy 44.4; Estimated Glomerular Filt Rate 59; Glucose Random 94 mg/dL (60-115); Potassium 4.4 mmol/L (3.3-5.1); Sodium 138 mmol/L (135-145)
[2021-11-12 07:22] VITALS: BP 119/59; PULSE 85; RESP 20; TEMP 36.3; O2SAT 96
--- NOTE | 2021-11-12 08:53 | MHC.CM.PN ---
Addendum entered by Ana Valladares RN 11/12/21 08:57: PT'S MARLENE CONTACTED AT 8:55AM [phone] AND IS PLEASED W/PLAN. Original Note: PT DISCHARGING HOME AT 12PM TODAY W/[facility] FOR IV ABX/[facility] CATH MANAGEMENT, [facility] FOR [facility] AND [facility] FOR BLS TRANSPORT.
[2021-11-12] MEDS: Furosemide 20 MG TABLET PO (09:27)
[2021-11-12] MEDS: modafiniL 100 MG TABLET PO ×2 (09:27→12:02)
[2021-11-12 11:24] VITALS: BP 143/70; PULSE 96; RESP 18; TEMP 36.3; O2SAT 98
--- NOTE | 2021-11-12 11:28 | PM.DS ---
DS: Providers Provider Date of Service: 11/12/21 Date of admission: 11/02/21 18:43 Primary care physician: Jakub Santacruz MD Consults: 11/02/21 18:41 Consult to Hospitalist Stat Consulting Provider: Hospitalist Reason For Exam: post procedure sepsis 11/03/21 11:09 Consult to Critical Care Routine Consulting Provider: Chan Altman Reason for consultation: Severe sepsis for your kind eval 11/05/21 10:01 Consult to Infectious Diseases Routine Consulting Provider: Bethanie Gurrola Reason for consultation: restricted RX 11/06/21 14:45 Consult to Hematology / Oncology Routine Consulting Provider: Trupti Orourke Reason for consultation: Thrombocytopenia, R\O HIT DS: Diagnosis Discharge Diagnosis (1) Thrombocytopenia: Status: Acute (2) Ileus: Status: Acute (3) C. difficile colitis: Status: Acute (4) Bacteremia due to Pseudomonas: Status: Acute (5) Septic shock: Status: Acute (6) Fever: Status: Acute (7) Neurogenic urinary bladder disorder: Status: Acute DS: Summary Hospital Course Hospital Course: Admission note HPI ?71-year-old female with a past medical history of multiple? sclerosis admitted to the Urology Service for? renal calculi requiringcystoscopy, left retrograde left ureteroscopy laser lithotripsy stent placement on 11/02/20. ?postprocedure patient became tachycardic, blood pressure on the soft side, lactic acidosis; had Cortes catheter in place postprocedure and Cortes bag showed gross hematuria; admitted to the medical floors for observation Patient was also started on antibiotics.? Medicine team was consulted given fever and lactic acidosis.? Patient denies any? cough, sputum production, abdominal discomfort, nausea, vomiting, urinary symptoms.? Has Cortes in place with hematuria in the Cortes bag.? Denies any lightheadedness dizziness.? Denies any chest pain or palpitations.? Hospital Course Patient was admitted to medical floor for picture of sepsis after going through a urological procedure.d to have significant drop in blood pressure with no response to IV fluid so she was transferred to ICU for IV pressors. She was covered with IV antibiotics as blood cultures grew Pseudomonas in 2 different culture sets. First negative culture from November 06. Evaluated by infectious disease specialist who recommended discharge on meropenem 3 times daily as the patient has sensitivity to levofloxacin. Nohemy Thompson line was placed by IR with plan to continue antibiotic until November 27. Noted to have positive C diff antigen but negative for toxin. Id recommended treatment with vancomycin for total of 3 weeks. She was also noted to have pleural effusion on the left side likely as a result of the fluids she received when she was hypotensive. Thoracentesis done removing 400 cc of fluids. She was started on Lasix with good response and saturating 98% on room air. Received 1 unit of blood for drop in her hemoglobin below 8. Stable between 9-10. Plan to discharge home to finish IV meropenem and p.o. vancomycin. Next [place] to follow-up with Dr. Majano as outpatient. Time Spent with Patient Time attestation: Total time spent providing and/or coordinating discharge services: Discharge coordination time: Greater than 30 minutes Quality: Stroke Does the patient have a stroke diagnosis?: No Physical Exam Vital Signs: Vital Signs: Last Vital Signs Temp 97.3 F 11/12/21 11:24 Pulse 96 11/12/21 11:24 Resp 18 11/12/21 11:24 BP 143/70 H 11/12/21 11:24 Pulse Ox 98 11/12/21 11:24 BMI result Body Mass Index 17.9 Const: Other: Constitutional : Alert, oriented, not in distress Neck : Normal inspection, Supple Cardiovascular : RRR, S1 S2, no lower extremity edema Respiratory : Good bilateral air entry, no crackles, wheezes or rhonchi Gastrointestinal: soft, lax, Normal bowel sounds, Non tender Skin : Warm, Dry, min catheter in place Neurological : Alert & oriented x3, left-sided weakness mainly on the lower extremity DS: Data Data Completed and Pending Completed studies during hospitalization [Text1]: Pending at discharge 11/02/21 10:03 Surgical [PTH] Routine Labs on day of discharge: Laboratory Results - last 24 hr 11/12/21 11/12/21 05:18 05:18 WBC 8.6 RBC 3.26 L Hgb 9.8 L Hct 31.4 L MCV 96.3 MCH 30.1 MCHC 31.2 RDW 14.6 Plt Count 358 D MPV 10.5 Absolute Nucleated RBC 0.000 Nucleated RBC % (auto) 0.0 Sodium 138 Potassium 4.4 Chloride 104 Carbon Dioxide 27 Anion Gap 11 L BUN 25 H Creatinine 0.94 Estim Creat Clear Calc 44.4 Estimated GFR 59 Random Glucose [address] Calcium 8[address] scan - abdomen: Radiologist's impression: ITS Impressions Guidance Fluoroscopy 11/02/21 11:05 IMPRESSION: Fluoroscopy was provided to Dr. Melecio Pandey during the procedure. Chest X-Ray 11/02/21 22:05 IMPRESSION: There is blunting of the costophrenic ankles which may be due to pleural thickening or trace pleural effusions. Otherwise, clear lungs. Abdomen/Pelvis CT 11/03/21 11:55 IMPRESSION: Satisfactory position of left internal ureteral stent. Small stone fragments seen in the left renal pelvis. Small stones in the lower pole of the left kidney. No perinephric collection or hematoma is seen. Right renal stones. Cortes catheter in the bladder. Bladder is empty. Small amount of ascites in the pelvis. Postsurgical changes post right colectomy. Upper normal-size gallbladder and gallstones. Mild intrahepatic biliary duct dilatation. These findings are similar to 2020 exam. Fleischner guidelines were followed. Chest X-Ray 11/03/21 16:15 IMPRESSION: 1.Left subclavian line catheter tip in superior vena cava. No pneumothorax. 2. Mild blunting of costophrenic angles bilaterally possibly due to small bilateral pleural effusions. No change since prior chest x-ray 11/02/2019. Chest X-Ray 11/04/21 11:36 IMPRESSION: Bilateral pleural effusions and bibasilar haziness likely infiltrate and/or atelectasis. The effusions greater on the right with slight loculated pleural effusion along the right minor fissure. No change in left central venous catheter. Suspect moderate size hiatal hernia. Chest X-Ray 11/05/21 12:30 IMPRESSION: Bibasilar patchy opacity likely atelectasis. Loculated right pleural effusion along the right lateral chest wall and minor fissure, is stable. Previously visualized tubular artifact along the right upper chest on the previous exam is not seen at this time. Chest X-Ray 11/09/21 16:50 IMPRESSION: Status post left thoracentesis there is no pneumothorax. There is minimal blunting of left CP angle from pleural effusion. No change in the left subclavian venous venous line. Right pleural effusion appears improved since 11/05/2021 exam. Loculated effusion along the right minor fissure has resolved. Thoracentesis/Paracentesis US 11/09/21 17:00 IMPRESSION: Successful ultrasound-guided left thoracentesis performed. There is no drainable pleural effusion seen on the right side. Insertion Tunneled Catheter 11/11/21 11:33 IMPRESSION: Successful fluoroscopy-guided exchange and placement of left triple-lumen catheter with a left tunneled single-lumen Thompson catheter for long-term IV antibiotics. Fluoroscopy time: 0.9 minutes. Dose area product: 66 cGycm2 Discharge Plan Discharge Patient Disposition: Home Health Service Discharge Diagnosis: sepsis, pseudomonas, cdif Referrals: [facility] [Outside] - 1 Day (DISCHARGED HOME WITH RESUMPTION OF HER SERVICES WITH THE [facility] FOR NRUSING SELF RESUMPTION OF HER [employer]PER[employer] SERVICES 65 HOURS WEEK LIVES WITH HER AND SON WHEELCHAIR BOUND AT BASELINE) Dannie Majano MD [Physician] - 2 Weeks ( will schedule for right-sided procedure) Jakub Santacruz MD [Primary Care Provider] - None Discharge Medications: New phenazopyridine [Pyridium] 100 mg tablet 100 mg PO TID PRN (Reason: spasm) 4 Days Qty: 12 RF: 0 meropenem 1 gram recon soln 1 g IV Q8H 9 Days Qty: 25 RF: 0 vancomycin 50 mg/mL recon soln 125 mg PO QID 14 Days Qty: 140 RF: 0 Continued ondansetron 4 mg tablet,disintegrating 4 mg PO Q8H Qty: 90 RF: 8 hydrocortisone [Anusol-HC] 2.5 % cream with perineal applicator 1 appl MN BID-QID PRN (Reason: hemorrhoids) Qty: 30 RF: 8 tramadol 50 mg tablet 50 mg PO Q8H PRN (Reason: pain) Qty: 60 RF: 5 pyridoxine (vitamin B6) 100 mg tablet 100 mg PO DAILY 90 Days Qty: 90 RF: 2 diclofenac sodium 1 % gel 2 g topical BID PRN (Reason: Pain) RF: 0 furosemide 20 mg tablet 20 mg PO DAILY PRN (Reason: FOOT SWELLING) RF: 0 modafinil 200 mg tablet 100 mg PO BID@0800,1200 RF: 0 Discontinued nitrofurantoin monohyd/m-cryst [Macrobid] 100 mg capsule 100 mg PO DAILY 14 Days Qty: 14 RF: 0 Discharge Orders: Discharge Order (Routine); Ordered 11/12/21 Ordered By: Taisha Torres Diet: advance to usual diet Activity on Discharge: As tolerated Stand Alone Forms: Patient Portal Discharge page Care Plan Goals: recovery Health Concerns: pseudomonas, cdif Plan of Treatment: meropenem until nov 19, vancomycin for 21 days total Assessment: see above Discharge Date/Time: 11/12/21 18:06
--- NOTE | 2021-11-12 13:33 | HO.PM.IMPN ---
Subjective Subjective Date of Service: 11/12/21 Interval History: the patient was seen and evaluated this morning feels better today but overall still having some weakness. Her tested positive for COVID-19, discharge plan changed No reported other overnight events. Systemic review: No fever, chills but reports generalized weakness No chest pain, palpitation No shortness of breath or coughing No abdominal pain, nausea or vomiting No urinary symptoms No any rash or wounds Physical Exam Vital Signs: Vital Signs: Last Vital Signs Temp 97.3 F 11/12/21 11:24 Pulse 96 11/12/21 11:24 Resp 18 11/12/21 11:24 BP 143/70 H 11/12/21 11:24 Pulse Ox 98 11/12/21 11:24 BMI result Body Mass Index 17.9 Const: Other: Constitutional : Alert, oriented, not in distress Neck : Normal inspection, Supple Cardiovascular : RRR, S1 S2, no lower extremity edema Respiratory : Good bilateral air entry, no crackles, wheezes or rhonchi Gastrointestinal: soft, lax, Normal bowel sounds, Non tender Skin : Warm, Dry, Thompson catheter in place Neurological : Alert & oriented x3, left-sided weakness mainly on the lower extremity Objective Data Active Medications Furosemide (Furosemide 20 Mg Tablet) 20 mg PO DAILY NICOLE; Protocol Last Admin: 11/12/21 09:27 Dose: 20 mg Documented by: RAMAN Hydromorphone HCl (Hydromorphone Hcl 1 Mg/Ml Syringe) 0.5 mg IVPUSH Q1H PRN; Protocol PRN Reason: Pain, Mild (Pain Scale 1-3) Last Admin: 11/11/21 07:42 Dose: 0.5 mg Documented by: KRISTINA Meropenem 1 gm/ Sodium (Chloride) 100 mls @ 200 mls/hr IV Q8H NICOLE Last Infusion: 11/12/21 07:13 Dose: 0 mls/hr Documented by: ANJU Lidocaine/Diphenhydr/Alum/Mg/Simeth (Mag&Al/Sim/Diphenhyd/Lidocaine 10 Ml Oral.Susp) 10 ml PO Q4H PRN; Protocol PRN Reason: odynophagia Lidocaine/Diphenhydr/Alum/Mg/Simeth (Mag&Al/Sim/Diphenhyd/Lidocaine 10 Ml Oral.Susp) 10 ml PO Q6H PRN; Protocol PRN Reason: Dry Mouth Modafinil (Modafinil 100 Mg Tablet) 100 mg PO BID@0800,1200 COUNT INCLUDES THE [facility] Last Admin: 11/12/21 12:02 Dose: 100 mg Documented by: RAMAN Ondansetron HCl (Ondansetron Odt 8 Mg Tab.Rapdis) 8 mg TRANSLINGU Q8H PRN PRN Reason: Nausea and Vomiting Last Admin: 11/11/21 16:45 Dose: 8 mg Documented by: SIMON Vancomycin HCl (Vancomycin Hcl 125 Mg Capsule) 125 mg PO Q6H COUNT INCLUDES THE [facility] Last Admin: 11/12/21 09:27 Dose: 125 mg Documented by: RAMAN Labs CBC & Chem 7: 11/12/21 05:18 11/12/21 05:18 Labs: Laboratory Results - last 24 hr 11/12/21 11/12/21 05:18 05:18 MCV 96.3 MCH 30.1 MCHC 31.2 RDW 14.6 Plt Count 358 D MPV 10.5 Absolute Nucleated RBC 0.000 Nucleated RBC % (auto) 0.0 Anion Gap 11 L Estim Creat Clear Calc 44.4 Estimated GFR 59 Random Glucose 94 Calcium 8.1 L Assessment and Plan (1) Septic shock: Status: Acute (2) Thrombocytopenia: Status: Acute (3) Bacteremia due to Pseudomonas: Status: Acute (4) C. difficile colitis: Status: Acute Assessment and Plan: a 71-year-old woman with past medical history of very disabling multiple sclerosis.? She also has history of bilateral renal stones, neurogenic urinary bladder, and recurrent UTI. underwent elective cystoscopy, left retrograde ureteroscopy, and laser lithotripsy with stent in the OR here w Dr. Majano.? Postprocedure the patient became tachycardic, hypotensive, w lactic acidosis. septic shock, resolved Pseudomonas bacteremia Patient? grew Pseudomonas 11/02 and 11/03, no growth from 11/06 on meropenem Plan to DC on meropenem for total of 14 days Thompson line placed d/w ID, will plan for 7 more days (end 11/19/21) of meropenem 1gm q8 ?thrombocytopenia resolved, was cefepime vs sepsis Constipation resolved CDiff tox gene PCR positive Continue oral vanco for 21 days total Dyspnea Acute on chronic diastolic heart failure and bilateral? pleural effusion by BNP, xray, and echo.? continue lasix resolved bilateral pleural effusion not enough fluid to drain on right loculated effusion left was drained 400cc, CXR improved, sob improved ?acute on chronic Anemia received 1 unit prbc, hgb improved from 7.4 to 9.9, stable now around 10 DVT PPX SCDs Dispo, plan was to discharge the patient home but her tested positive for COVID and cannot take care of her so plan for SNF placement. Quality Stroke Does the patient have a stroke diagnosis?: No VTE Prior VTE?: No VTE Risk Level:: Medical - moderate - high VTE Device Contraindication: N/A - Device Ordered VTE Drug Contraindication: N/A - Med Ordered
--- NOTE | 2021-11-12 14:06 | MHC.CM.PN ---
CM RECEIVED CALL FROM [facility] REGARDING COPAY OF ORAL VANCO $1500 vs $376 FOR THE LIQUID FORM AND ASKING HER TO BE SENT TO A SNF HE IS COVID+, SNF REFERRALS UPDATED VIA [facility], CM AWAITING RESPONSE.
[2021-11-12 15:48] LABS: COVID-19 Test Negative (Negative); IDNOW Serial# 9DD0AD1C
== END 2021-11-12 18:06 | disposition home health service (06) | DRG 659 ==
LOC: HO.IMC 19:37 → HO.ICU 11-03 11:59 → HO.IMC 11-05 15:13 → HO.S3 11-06 12:18
PROVIDERS: Anesthesiology; Hospitalist; Internal Medicine; Physician Assistant; Radiology Diagnostic Radiology; Admitting Provider Urology; PCP Internal Medicine; Visit Provider Student in an Organized Health Care Education/Training Program
PROC: 0T778DZ Dilation of Left Ureter with Intraluminal Device, Via Natural or Artificial Opening Endoscopic (ICD-10-PCS; principal; 2021-11-02 09:50)
PROC: 0W9B3ZZ Drainage of Left Pleural Cavity, Percutaneous Approach (ICD-10-PCS; principal; 2021-11-09 13:00)
PROC: 02PYX3Z Removal of Infusion Device from Great Vessel, External Approach (ICD-10-PCS; principal; 2021-11-11 09:00)
DX: N20.0 Calculus of kidney (principal); A41.52 Sepsis due to Pseudomonas; I50.33 Acute on chronic diastolic (congestive) heart failure; T81.12XA Postprocedural septic shock, initial encounter; E44.1 Mild protein-calorie malnutrition; Z68.1 Body mass index [BMI] 19.9 or less, adult; N39.0 Urinary tract infection, site not specified; T81.44XA Sepsis following a procedure, initial encounter; K56.7 Ileus, unspecified; A04.72 Enterocolitis due to Clostridium difficile, not specified as recurrent; G35 Multiple sclerosis; D69.6 Thrombocytopenia, unspecified; Z20.822 Contact with and (suspected) exposure to COVID-19; L89.321 Pressure ulcer of left buttock, stage 1; N31.8 Other neuromuscular dysfunction of bladder; L89.311 Pressure ulcer of right buttock, stage 1; Z74.01 Bed confinement status; Z85.038 Personal history of other malignant neoplasm of large intestine; Z87.440 Personal history of urinary (tract) infections; Z88.0 Allergy status to penicillin; Z88.2 Allergy status to sulfonamides; Z79.899 Other long term (current) drug therapy
CPT/HCPCS: 32557; 36415; 36558; 71045; 71046; 74176; 80048; 80051; 80076; 81001; 82040; 82365; 82533; 82565; 82607; 82746; 82803; 83540; 83605; 83615; 83735; 83880; 84100; 84145; 84157; 84300; 84484; 85007; 85014; 85018; 85025; 85027; 85384; 85610; 86850; 86900; 86901; 86923; 87040; 87077; 87186; 87205; 87324; 87493; 87635; 88300; 89051; 93005; 93306; 99152; 99153; C1758; C1769; C1894; C2617; J0690; J0692; J1100; J1170; J1580; J1650; J1940; J2185; J2250; J2370; J2405; J2550; J3010; J3370; J3411; J3475; P9016; Q9967

== ENCOUNTER 2021-12-01 13:45 | Outpatient (REF) | payer MEDICARE, MEDICAID, SELFPAY ==
--- NOTE | ~2021-12-01 | IR_ITS ---
EXAMINATION: IR REMOVAL OF DSOUZA CATHETER. CLINICAL INFORMATION: Dsouza catheter is not needed. COMPARISON: None TECHNIQUE: Following explaining the procedure of removal of the Dsouza catheter, the dressing overlying the Dsouza catheter was removed. Gentle pressure was applied on the catheter and the catheter easily pulled out including the cuff. The entire catheter length was measured and completely removed. Complete hemostasis was achieved at puncture site. Sterile dressing was applied postprocedure. Patient tolerated the procedure extremely well. IR/IR cvc remov tunnel wo prt/customs officer FINDINGS/IMPRESSION: Successful removal of left Dsouza catheter without any bleeding. Patient tolerated the procedure extremely well.
== END 2021-12-01 13:46 | disposition home or self-care (01) ==
LOC: HO.RADIR 13:45
PROVIDERS: PCP Internal Medicine; Visit Provider Internal Medicine
DX: Z45.2 Encounter for adjustment and management of vascular access device (principal)
CPT/HCPCS: 36589

== ENCOUNTER → 2021-12-09 10:36 | Outpatient (BNVA) | payer MEDICARE, MEDICAID, SELFPAY | PROVIDERS: PCP Internal Medicine; Visit Provider Urology | DX: N20.0 Calculus of kidney (principal) | CPT/HCPCS: Q3014 ==

== ENCOUNTER → 2021-12-18 10:05 | Outpatient (BNVA) | payer MEDICARE, MEDICAID, SELFPAY | PROVIDERS: PCP Internal Medicine; Visit Provider Urology | DX: N31.9 Neuromuscular dysfunction of bladder, unspecified (principal); N39.0 Urinary tract infection, site not specified; N20.0 Calculus of kidney | CPT/HCPCS: 52310; 99212 ==

== ENCOUNTER → 2022-04-23 13:23 | Outpatient (BNVA) | payer MEDICARE, MEDICAID, SELFPAY | PROVIDERS: PCP Internal Medicine; Visit Provider Urology | DX: N20.0 Calculus of kidney (principal); N31.9 Neuromuscular dysfunction of bladder, unspecified | CPT/HCPCS: Q3014 ==

== ENCOUNTER 2022-06-04 11:20 | Outpatient (REF) | payer MEDICARE, MEDICAID, SELFPAY ==
--- NOTE | ~2022-06-04 | US_ITS ---
EXAMINATION: US RETROPERITONEAL LIMITED (RENAL ONLY) CLINICAL INFORMATION: Calculus of kidney. COMPARISON: CT abdomen and pelvis 11/03/2021. Renal ultrasound 09/04/2021 and 10/01/2020. X-ray abdomen KUB 07/09/2020. TECHNIQUE: Real-time imaging of the kidneys. FINDINGS: RIGHT KIDNEY: 8.0 x 3.0 x 5.1 cm (SAG x AP x TRV). The kidney is normal in size, contour, and echogenicity. Renal cortical thickness is normal. No focal parenchymal lesions or hydronephrosis. There are multiple echogenic stones. Lower pole stones measure 1.2 x 0.50 x 0.82 cm and 0.40 x 0.20 x 0.30 cm. Midpole stone measures 0.30 x 0.20 x 0.24 cm and upper pole stones measure 0.43 x 0.31 x 0.56 cm and 0.60 x 0.25 x 0.48 cm. There is no caliectasis. LEFT KIDNEY: 7.5 x 4.0 x 4.3 cm (SAG x AP x TRV). The kidney is normal in size, contour, and echogenicity. Renal cortical thickness is normal. No hydronephrosis. There are several anechoic cysts. Upper pole cyst measures 0.82 x 0.80 x 0.70 cm. There is a complex anechoic cyst measuring 1.2 x 1.1 x 1.1 cm. There are a few echogenic stones the largest measuring in midpole 1.1 x 0.70 x 0.60 cm and upper pole 0.74 x 0.35 x 0.63 cm. There is no caliectasis. US/US renal BI IMPRESSION: Bilateral nonobstructive echogenic renal calculi. No hydronephrosis. Bilateral renal calculi were seen on recent CT abdomen exam 11/03/2021. There is a simple and a complex cyst left kidney.. This was not visualized on the recent CT 11/03/2021.
[2022-06-04 13:49] LABS: Hematocrit 31.7 % (37.0-47.0); Hemoglobin 9.7 g/dl (12.0-16.0); Mean Corpuscular HGB Conc 30.6 g/dl (31.0-35.0); Mean Corpuscular Hemoglobin 30.8 pg (27.0-33.0); Mean Corpuscular Volume 100.6 fL (80.0-98.0); Mean Platelet Volume 9.5 fL (9.4-12.3); Platelet Count 388 X10*3/uL (160-400); Red Blood Count 3.15 X10*6/uL (4.20-5.50); Red Cell Distribution Width 13.8 % (11.0-16.0); White Blood Count 4.4 X10*3/uL (4.8-10.8)
[2022-06-04 14:16] LABS: Anion Gap 17 (12-20); Blood Urea Nitrogen 26 mg/dL (9-16); Calcium 9.4 mg/dL (8.4-10.2); Carbon Dioxide 30 mmol/L (22-29); Chloride 100 mmol/L (96-108); Estimated Glomerular Filt Rate 48; Glucose Random 125 mg/dL (60-115); Potassium 3.6 mmol/L (3.3-5.1); Sodium 143 mmol/L (135-145)
== END 2022-06-04 11:21 | disposition home or self-care (01) ==
LOC: HO.HMGCX 11:20
PROVIDERS: Visit Provider Urology
DX: N20.0 Calculus of kidney (principal)
CPT/HCPCS: 36415; 76775; 80048; 85027

== ENCOUNTER → 2022-06-16 12:07 | Outpatient (BNVA) | payer MEDICARE, MEDICAID, SELFPAY | PROVIDERS: PCP Internal Medicine; Visit Provider Urology | DX: N20.0 Calculus of kidney (principal); N31.9 Neuromuscular dysfunction of bladder, unspecified | CPT/HCPCS: Q3014 ==

== ENCOUNTER 2022-07-26 18:50 | Inpatient (IN) | payer MEDICARE, MEDICAID, SELFPAY ==
[2022-07-21 10:50] VITALS: BMI 17.9
--- NOTE | 2022-07-23 10:14 | HO.ANESPROP2 ---
Documented by User: Liza Jose NP 07/23/22 10:19 HPI - Anesthesia Eval Consult details Narrative: 72yo F for Right Cystoscopy, Ureteroroscopy, Retro, Laser,poss stent,flexible scope Cleared by PCP s/p same 10/2021 with GA-LMA 3 MS (wheelchair bound) PMFSH Active Problems Active Problems: All Active Problems (Updated 07/21/22 @ 10:45 by Liliana Orta RN) Neurogenic urinary bladder disorder (Acute) Bilateral renal stones (Acute) Generalized pruritus (Acute) Bilateral nephrolithiasis (Acute) Recurrent UTI (Acute) C. difficile colitis (Acute) Sepsis (Acute) Preop exam for internal medicine (Acute) Multiple sclerosis (Acute) Past Medical History Medical History (Updated 07/21/22 @ 10:45 by Liliana Orta RN) C. difficile colitis Chronic indwelling Cortes catheter Colon cancer Kidney stones Multiple sclerosis Recurrent urinary tract infection Sepsis Wheelchair bound Family History Family History Father No problems noted. Mother Kidney disease Maternal Aunt Breast cancer Family history of problems with anesthesia: No Surgical History Surgical History (Updated 07/21/22 @ 10:55 by Liliana Orta RN) H/O colonoscopy H/O rectal polypectomy History of colon resection History of esophagogastroduodenoscopy (EGD) History of nephrolithotomy with removal of calculi Hx of cystoscopy History of Problems with Anesthesia: No Social History Social History Household Members: Significant Other and Children Housing: House Do you presently have visiting nurse or other home services: Yes Alcohol intake: never Patient Tobacco Use Status: Former Tobacco user Quit Date: 2010 e-Cigarette/Vaping Use: Never Used Second Hand Smoke Exposure: No Use of substances other than those prescribed or required for medical reasons: No Are you DNR?: No Advance Directives: Yes Advance Directives on File: Yes Advance Directives Date on File: 11/05/21 service: No Current occupational status: retired Cognitive needs: Yes (wheelchair ) Hearing needs: No Vision needs: Yes (glasses) Meds Allergies Allergy/AdvReac Type Severity Reaction Status Date / Time nystatin [NYSTATIN] Allergy Severe SWOLLEN Verified 07/12/22 11:04 MOUTH Penicillins [PENICILLINS] Allergy Severe SWELLING,HI Verified 07/12/22 11:04 VES ciprofloxacin [CIPROFLOXACIN] Allergy Intermediate HIVES Verified 07/12/22 11:04 clindamycin [CLINDAMYCIN] Allergy Intermediate ITCHYNESS,D Verified 07/12/22 11:04 IARRHEA,HIV ES levofloxacin [From Levaquin] Allergy Intermediate HIVES.ITCHI Verified 07/12/22 11:04 NESS,DIARRH EA Sulfa (Sulfonamide Allergy Intermediate HIVES Verified 07/12/22 11:04 Antibiotics) [SULFA(SULFONAMIDE ANTIBIOTICS)] Home Medications Medication Instructions Recorded Confirmed Last Taken Type doxycycline hyclate 100 mg capsule mg PO 12/09/21 07/12/22 Unknown History Exam Exam Date and Time: July 23, 2022 1014 Height,Weight and Vital Signs: Height 5 ft 7 in Weight 52 kg Pertinent Lab Results Pertinent Lab Results: Laboratory Tests 06/04/22 06/04/22 11:43 11:43 WBC 4.4 L Hgb 9.7 L Hct 31.7 L Plt Count 388 Sodium 143 Potassium 3.6 Chloride 100 Carbon Dioxide 30 H BUN 26 H Creatinine 1.11 Narrative Narrative: EKG 10/2021 Vent. Rate : 105 BPM ? ? Atrial Rate : 105 BPM ?? P-R Int : 114 ms? QRS Dur : 078 ms ? ? QT Int : 350 ms ? ? ? P-R-T Axes : 084 -11 077 degrees ?? QTc Int : 462 ms ? Sinus tachycardia Nonspecific ST and T wave abnormality Abnormal ECG When compared with ECG of 04-NOV-2021 11:18, No significant change was found Assessment and Plan Assessment Anesthesia Assessment: Chart Reviewed Final Anesthetic Review Family History of Problems with Anesthesia: No History of Problems with Anesthesia: No Documented by User: Cody Oseguera MD 07/26/22 18:29 [facility] Past Medical History Medical History (Updated 07/21/22 @ 10:45 by Liliana Orta RN) C. difficile colitis Chronic indwelling Cortes catheter Colon cancer Kidney stones Multiple sclerosis Recurrent urinary tract infection Sepsis Wheelchair bound Family History Family History Father No problems noted. Mother Kidney disease Maternal Aunt Breast cancer Surgical History Surgical History (Updated 07/21/22 @ 10:55 by Liliana Orta RN) H/O colonoscopy H/O rectal polypectomy History of colon resection History of esophagogastroduodenoscopy (EGD) History of nephrolithotomy with removal of calculi Hx of cystoscopy Social History Social History Household Members: Significant Other and Children Housing: House Do you presently have visiting nurse or other home services: Yes Alcohol intake: never Patient Tobacco Use Status: Former Tobacco user Quit Date: 2010 e-Cigarette/Vaping Use: Never Used Second Hand Smoke Exposure: No Use of substances other than those prescribed or required for medical reasons: No Are you DNR?: No Advance Directives: Yes Advance Directives on File: Yes Advance Directives Date on File: 11/05/21 service: No Current occupational status: retired Cognitive needs: Yes (wheelchair ) Hearing needs: No Vision needs: Yes (glasses) Meds Allergies Allergy/AdvReac Type Severity Reaction Status Date / Time nystatin [NYSTATIN] Allergy Severe SWOLLEN Verified 07/12/22 11:04 MOUTH Penicillins [PENICILLINS] Allergy Severe SWELLING,HI Verified 07/12/22 11:04 VES ciprofloxacin [CIPROFLOXACIN] Allergy Intermediate HIVES Verified 07/12/22 11:04 clindamycin [CLINDAMYCIN] Allergy Intermediate ITCHYNESS,D Verified 07/12/22 11:04 IARRHEA,HIV ES levofloxacin [From Levaquin] Allergy Intermediate HIVES.ITCHI Verified 07/12/22 11:04 NESS,DIARRH EA Sulfa (Sulfonamide Allergy Intermediate HIVES Verified 07/12/22 11:04 Antibiotics) [SULFA(SULFONAMIDE ANTIBIOTICS)] Home Medications Medication Instructions Recorded Confirmed Last Taken Type doxycycline hyclate 100 mg capsule mg PO 12/09/21 07/12/22 Unknown History Exam Airway Mallampati Class: III TM Dist: >3cm Neck ROM: Full Denture: Upper Loose/Missing/Broken Teeth: Yes Heart: S1,S2 Lungs: b/l breath sounds Assessment and Plan Assessment Anesthesia Assessment: Anesthesia Plan Discussed Final Anesthetic Review NPO: Yes ASA Class: III Final Preanesthetic Review: Meds/Allgs Chart Reviewed, Consent Obtained/Reviewed and Anes Risks/Benef Reviewed Patient Risk: High Procedure Risk: Intermediate Anesthetic Plan Anesthetic Plan: GA Disposition: Inp. Admit - Standard Bed
[2022-07-26] VITALS (26 sets, daily range): BP systolic 68–151; BP diastolic 27–114; PULSE 79–145; RESP 16–30; TEMP 35.4–36.5; O2SAT 95–100; BMI 17.2
--- NOTE | ~2022-07-26 | CT_ITS ---
EXAMINATION: CT ABDOMEN AND PELVIS WITH CONTRAST CLINICAL INFORMATION: Elevated lactic acid COMPARISON: Retrograde pyelogram earlier today at 1:41 PM, CT renal ultrasound 06/04/2022, abdomen pelvis 11/03/2021 TECHNIQUE: Multidetector volumetric images were obtained from the superior aspect of the liver through the pubic symphysis following administration 85 mL of Omnipaque 350 intravenous contrast. Sagittal and coronal reformatted images were obtained on the technologist's workstation. Oral contrast: No This CT examination was performed using dose optimization techniques as appropriate, variously including the following: *Automated exposure control *Adjustment of mA and/or kV according to patient size (this includes techniques or standardized protocols for targeted exams where dose is matched to indication/reason for exam; i.e. extremities or head) *Use of iterative reconstruction technique DLP: 533 mGy-cm FINDINGS: LUNG BASES: Small left pleural effusion is again seen. There is new patchy consolidation present in the posterior basal segment of the right lower lobe with associated trace pleural effusion. LIVER, GALLBLADDER, AND BILIARY TREE: The liver is normal in size, shape, and attenuation. Tiny hyperdensity seen adjacent to gallbladder without change most likely benign cyst. No worrisome solid focal hepatic lesion or biliary ductal dilatation is present. The gallbladder is distended and contains at least one stone measuring 1.5 cm. No obvious pericholecystic inflammatory changes. Small to moderate volume of ascites is present. PANCREAS: Unremarkable. SPLEEN: Unremarkable. ADRENAL GLANDS: Unremarkable. KIDNEYS AND URETERS: In the right kidney, there is a new subcapsular hematoma present measuring 7.6 x 3.0 x 8.7 cm. There is retroperitoneal hematoma/blood as well. Moderately extensive right lower pole calculi are seen with some probable calculi seen in the upper pole as well. A few small calyceal stones are present in the left kidney (3:39). There is mild ureteral pelvocaliectasis present on the left with air seen within the intrarenal collecting system and ureter. A tiny bit of air is seen in the right renal collecting system. BLADDER: Cortes catheter is present in an empty bladder. GASTROINTESTINAL TRACT: Patient appears to be status post a right hemicolectomy with a colo-Ileal anastomosis. The small and large bowel are unremarkable. No evidence of bowel obstruction The appendix is not present. ABDOMINAL WALL: No significant hernia is appreciated. LYMPH NODES: No retroperitoneal lymphadenopathy. Multiple small retroperitoneal lymph nodes are seen. Please see discussion above regarding retroperitoneal hemorrhage. VASCULAR: Calcific aorto iliac plaque present without aneurysm PELVIC VISCERA: Unremarkable. OSSEOUS STRUCTURES: Unremarkable. CT/CT abdomen pelvis w IV con IMPRESSION: 1. Right subcapsular renal hematoma status post retrograde 2. Small left pleural effusion and new right lower lobe infiltrate 3. Retroperitoneal blood is present along with ascites. 4. Other findings as described above This critical result was discussed with David Rogers Nurse at 12:50 AM on 07/27/2022 and it was ascertained that the content and urgency of the report was understood at the time of direct communication. Fleischner guidelines were followed.
--- NOTE | ~2022-07-26 | XR_ITS ---
EXAMINATION: XR CHEST CLINICAL INFORMATION: Status post TLC placement. COMPARISON: None TECHNIQUE: Frontal portable view of the chest was obtained. 6:31 PM FINDINGS: Tubes and lines: 1. Right IJ catheter tip at the caval atrial junction. There is no pneumothorax. There is a prominent density over the right hilum new since prior chest x-ray 11/09/2021. Left hilar structures unchanged. Heart size is normal. No acute airspace disease. No pleural effusion or pneumothorax. XR/XR chest 1V IMPRESSION: 1. Right IJ catheter tip at the caval atrial junction. There is no pneumothorax. 2. There is a prominent density over the right hilum new since prior chest x-ray 11/09/2021. Consider CT chest with contrast for follow-up.
--- NOTE | ~2022-07-26 | FL_ITS ---
EXAMINATION: XR FLUOROSCOPY WITH IMAGES CLINICAL INFORMATION: Urinary tract calculi COMPARISON: CT abdomen and pelvis with contrast 07/26/2022 TECHNIQUE: Fluoroscopy performed by Dr. Dannie Majano. Fluoroscopy time: 3 minutes. Cumulative Dose: 22.43 mGy. Images: 2. FINDINGS: There is stent or catheter in each ureter and collecting system. There is no hydronephrosis or extravasation of contrast on either side. FL/FL guidance in OR IMPRESSION: Fluoroscopy for urologic procedures.
[2022-07-26 12:18] LABS: COVID-19 Test Negative (Negative); IDNOW Serial# 16C4AD1C
[2022-07-26] MEDS: Lactated Ringers 1,000 ML 100 ML IVCONT (12:30)
[2022-07-26] MEDS: vancomycin HCL 1,000 MG in 0.9 % Sodium Chloride 250 ML 270 MG IV (12:47)
--- NOTE | 2022-07-26 12:56 | MHC.SHP ---
Pre-Procedural Eval Section A Date of Service: 07/26/22 Section B Chief Complaint: Calculus of kidney Details of Present Illness: Bilateral calculus in the renal pelvis Relevant Family History (Specify if Yes): Yes Relevant Social History: None Present Medications: see Short Stay Collaborative assessment Medical History: Significant History History of Previous Operations: Relevant previous surgery/procedure and date(s) Allergies: Allergies Allergy/AdvReac Type Severity Reaction Status Date / Time nystatin [NYSTATIN] Allergy Severe SWOLLEN Verified 07/12/22 11:04 MOUTH Penicillins [PENICILLINS] Allergy Severe SWELLING,HI Verified 07/12/22 11:04 VES ciprofloxacin [CIPROFLOXACIN] Allergy Intermediate HIVES Verified 07/12/22 11:04 clindamycin [CLINDAMYCIN] Allergy Intermediate ITCHYNESS,D Verified 07/12/22 11:04 IARRHEA,HIV ES levofloxacin [From Levaquin] Allergy Intermediate HIVES.ITCHI Verified 07/12/22 11:04 NESS,DIARRH EA Sulfa (Sulfonamide Allergy Intermediate HIVES Verified 07/12/22 11:04 Antibiotics) [SULFA(SULFONAMIDE ANTIBIOTICS)] Review of Systems Sugical H&P ROS: Negative: Constitution, Cardiovascular, Respiratory, Neurological, Psychiatric, Hem-Onc, Allergic/Immunologic, Gastrointestinal, Genitourinary, Musculoskeletal, Integumentary, Endocrine and Eyes/Ears/Nose/Throat Exam Surgical H&P Exam: Normal: HEENT, Normal: Heart, Normal: Lungs, Normal: Extremities, Normal: Abdomen, Normal: Skin and Normal: Neurological Plan Diagnosis/Plan: Unchanged (Cystoscopy, bilateral retrograde, bilateral scope, laser, stent) I have reviewed the history and physical and performed a pertinent physical examination on my patient. No changes have occurred unless specified.
--- NOTE | 2022-07-26 16:14 | P.OP_ITS ---
Operative Note Operative Note Date of Service: 07/26/22 Narrative: PreOperative Diagnosis: Bilateral renal stones Post Operative Diagnosis: bilateral renal stones, large stone burden right side modifier 22 Procedure: - cystoscopy, left retrograde - left dilatation of ureteric orifice under fluoroscopy - left ureteroscopy, laser lithotripsy, stone basketing - right retrograde - right dilatation of ureteric orifice under fluoroscopy - right ureteroscopy, laser lithotripsy, stone basketing - modifier 22 200% longer than typical Surgeon: Dr Dannie Majano Anesthesia: General Indications for procedure: 72-year-old female with MS. Bilateral renal stones. Left side was addressed in maria g of months ago at that point had episode of sepsis. Presents full covered for bilateral procedure clear any small remnants from left side and to address right-sided is previously identified. Procedure: After informed consent was verified patient was brought to the operating placed in supine position. Anesthesia was administered per protocol. Patient was placed in modified dorsal lithotomy position and prepped and draped in a sterile fashion. Safety pause time-out and side of surgery confirmed. Antibiotics confirmed. 22 Greek cystoscope was inserted per urethra. Bladder was normal in its entirety. Both ureteric orifices were in normal position. The Left ureteric orifice was cannulated and a retrograde examination was performed. no filling defects seen. A Sensor guidewire was placed up to the level of the renal pelvis under fluoroscopy. The rigid cystoscope was removed and the inner cannula of ureteric access sheath was used under fluoroscopy to dilate the ureteric orifice. The ureteric access sheath was placed and the inner cannula with access wire removed. The digital flexible ureteral scope was placed. the left renal pelvis was examined in its entirety. In the lower pole uro number of fragments from previous ureteroscopy. Using the dusting settings on the laser and the 275 micron laser fiber these were broken into small pieces. We then used a 0 tip basket to remove fragments which will be sent for analysis. Due to her wide open ureter a decision was made not to proceed with stent placement. The ureter was visualized during withdrawal of the access sheath and showed good integrity throughout its length. The Right ureteric orifice was cannulated and a retrograde examination was performed. filling defects seen in right upper pole. Tortuosity noted of u reter with ureteric entry high into the renal pelvis.. A Sensor guidewire was placed up to the level of the renal pelvis under fluoroscopy. The rigid cystoscope was removed and the inner cannula of ureteric access sheath was used under fluoroscopy to dilate the ureteric orifice. The ureteric access sheath was placed and the inner cannula with access wire removed. The digital flexible ureteral scope was placed The anatomy of the right renal pelvis was difficult to navigate. High entry ureter on renal pelvis. We were able to examine the renal pelvis. We encountered a high degree of stone burden in the right upper pole consistent with at least 3 10-12 mm stones. Using the same laser fiber and dusting laser settings we were able to slowly [address] at the stones and reduce the significant stone burden. We used the access sheath with suction Capability in order to remove fluid with stone dust. The stones required multiple repositioning say and frequent stopping from lasering and using the 0 tip basket to attempt to reposition the stones into accessible locations to continue with laser therapy. this process took approximately 90 minutes which is 200% longer than typical for ureteroscopy on 1 side. At the completion decision was made not to leave a stent due to the width of her ureter. On withdrawal of the sheath she had chronic mucosal changes consistent with chronic refluxing infection. The bladder was emptied. The patient tolerated the procedure well and was extubated in the operating room, and transferred in stable condition to the recovery area. Pathology: Stones Drains: Cortes catheter.
--- NOTE | 2022-07-26 18:28 | W.PM.CCHP ---
Procedures Date of Service Date of Service: 07/26/22 Central Line Placement Right IJ: Central Line Comments: Right internal jugular triple-lumen central venous catheter emergently placed under ultrasound guidance and usual sterile conditions with no immediate complications for vasopressor support. X-ray for line position is pending.
[2022-07-26 18:30] LABS: Lactic Acid 4.9 mmol/L (0.5-2.0); Troponin-I High Sensitivity 4.7 ng/L (<3.5-17.0)
--- NOTE | 2022-07-26 18:32 | PM.EVENT ---
Event Note Date of Service: 07/26/22 Event Note: Post-op in the PACU , I was called as patient became tacycardiac and blood pressures started to drop. We had a high clinical suspicion for sepsis due to patient's past medical history. We gave IV fluids wide open, started her on vasopressors( Phenylephrine and then Levophed ) and started a second IV. We sent labs including a lactate and troponins. Patient had already received Vancomycin and ceftriaxone for the procedure . We gave a total of 1600 ml of LR bolus in the PACU . We initiated sepsis protocol. The multimedia author arrived in the PACU and we discussed the case in preparation for admission to ICU . Patient also got Cefepime in the ICU .
--- NOTE | 2022-07-26 18:41 | PC.NURSE ---
Dr. Kasper aware of elevated lactic acid critical result 4.9 Molly Constantino notified of sepsis patient transfer to icu
[2022-07-26] MEDS: Amiodarone/Dextrose 150 MG/100 ML PLAST..BAG 600 MG IV (18:58)
[2022-07-26] MEDS: Amiodarone HCL 900 MG in 0.9 % Sodium Chloride 500 ML 34.53 MG IVCONT (19:02)
[2022-07-26] MEDS: cefEPime HCl 2 GM in 0.9 % Sodium Chloride 50 ML IV (19:03)
[2022-07-26 19:16] LABS: VBG Base Excess -3.6 mmol/L; VBG HCO3 20 mmol/L (22-26); VBG pCO2 33 mmHg; VBG pH 7.39 (7.32-7.43); VBG pO2 37 mmHg
[2022-07-26 19:22] LABS: Hematocrit 21.1 % (37.0-47.0); Imm Gran Abs Auto 0.01 X10*3/uL (0.00-0.03); Imm Gran Pct Auto 0.8 % (0.0-0.4); Lymphocytes Absolute Auto 0.1 X10*3/uL (1.2-4.9); Lymphocytes Percent Auto 7.6 % (20-40); MANUAL DIFF FLAG SCAN; Mean Corpuscular HGB Conc 30.8 g/dl (31.0-35.0); Mean Corpuscular Hemoglobin 31.6 pg (27.0-33.0); Mean Corpuscular Volume 102.4 fL (80.0-98.0); Mean Platelet Volume 8.6 fL (9.4-12.3); Monocytes Percent Auto 0.8 % (2-11); Neutrophils Absolute Auto 1.1 x10*3/uL (2.0-8.3); Neutrophils Percent Auto 90.8 % (45-73); Platelet Count 320 X10*3/uL (160-400); Red Blood Count 2.06 X10*6/uL (4.20-5.50); Red Cell Distribution Width 13.2 % (11.0-16.0); SCAN SMEAR FLAG 1
--- NOTE | 2022-07-26 19:25 | PC.NURSE ---
Pt arrived from OR emergently to have central line placed, report taken at bedside. Pt arrived with Levo running at 0.8 via RUE peripheral IV. After line placement levo, boluses and other meds were given as ordered and CXR was confirmed per MD order. Pt's antunez noted to have bright red output from antunez. Per OR pt received 1L in OR then 800cc LR upon arrival and another 1L LR bolus per MD verbal order. Pt was not in system after arrival. total of 2 amps of IV bicarb administered, 1 in OR and 1 in ICU. Amio loading dose administered and drip started afterward. MD informed of pt's temp, shelley hugger placed as ordered. Pt A&Ox3. stage 2 wound noted to coccyx, dressing applied. Pt requiring doppler for pedal pulses. Toes and fingertips slightly cyanotic. pt on 2L n/c satting well w/ exp wheezing throughout.
[2022-07-26 19:34] LABS: White Blood Count 1.2 X10*3/uL (4.8-10.8)
[2022-07-26 19:38] LABS: Hemoglobin 6.5 g/dl (12.0-16.0)
--- NOTE | 2022-07-26 19:39 | P.HPCC_ITS ---
History of Present Illness Date of Service: 07/26/22 Attending physician on admission: Flex Kasper Chief Complaint: hypotension The patient is a 71-year-old woman with a past medical history of multiple sclerosis, bilateral renal stones, neurogenic urinary bladder, and recurrent UTIs. Today she underwent elective cystoscopy, bilateral retrograde ureteroscopy, laser lithotripsy and stone basketing with? Dr. Majano.? Postprocedure the patient became tachycardic, hypotensive, elevated lactic acid to 4.9 requiring pressors and amiodarone drip initiation. Patient had a similar presentation earlier this year on 11/03/21 after an left cystoscopy and laser lithotripsy.? She was given a total of 2.5L bolus, received vancomycin, levaquin and ceftriaxone in OR. And cefepime on arrival to ICU? Focus assessment performed at 1900. Patient is alert and oriented x 3. Mildly lethargic, but able to answer questions appropriately.? Temp 95.7. Lungs are clear. Satting 100% on 3 L via NC, tachycardic to 120s, S1-S2 present. No M/R/G. Normal capillary refill, pulses present in all extremities, abdomen soft, with mild diffuse tenderness. Cortes with gross hematuria. On shelley hugger.? Review of Systems Constitutional: Constitutional: Denies body ache(s) and Denies chills Cardiovascular: Cardiovascular: Denies chest pain, Denies lightheadedness and Denies dyspnea Respiratory: Respiratory: Denies cough and Denies dyspnea Gastrointestinal: Gastrointestinal: Denies diarrhea, Reports nausea and Denies vomiting Genitourinary: Genitourinary: Reports hematuria Musculoskeletal: Musculoskeletal: Reports back pain [facility] Past Medical History Medical History (Updated 07/26/22 @ 21:33 by David Rogers NP) C. difficile colitis Chronic indwelling Cortes catheter Colon cancer Kidney stones Multiple sclerosis Recurrent urinary tract infection Sepsis Wheelchair bound Family History Family History Father No problems noted. Mother Kidney disease Maternal Aunt Breast cancer Surgical History Surgical History (Updated 07/21/22 @ 10:55 by Liliana Orta RN) H/O colonoscopy H/O rectal polypectomy History of colon resection History of esophagogastroduodenoscopy (EGD) History of nephrolithotomy with removal of calculi Hx of cystoscopy Social History Social History Household Members: Significant Other and Children Housing: House Do you presently have visiting nurse or other home services: Yes Alcohol intake: never Patient Tobacco Use Status: Former Tobacco user Quit Date: 2010 e-Cigarette/Vaping Use: Never Used Second Hand Smoke Exposure: No Use of substances other than those prescribed or required for medical reasons: No Are you DNR?: No Advance Directives: Yes Advance Directives on File: Yes Advance Directives Date on File: 11/05/21 service: No Current occupational status: retired Cognitive needs: Yes (wheelchair ) Hearing needs: No Vision needs: Yes (glasses) Meds Allergies Allergy/AdvReac Type Severity Reaction Status Date / Time nystatin [NYSTATIN] Allergy Severe SWOLLEN Verified 07/12/22 11:04 MOUTH Penicillins [PENICILLINS] Allergy Severe SWELLING,HI Verified 07/12/22 11:04 VES ciprofloxacin [CIPROFLOXACIN] Allergy Intermediate HIVES Verified 07/12/22 11:04 clindamycin [CLINDAMYCIN] Allergy Intermediate ITCHYNESS,D Verified 07/12/22 11:04 IARRHEA,HIV ES levofloxacin [From Levaquin] Allergy Intermediate HIVES.ITCHI Verified 07/12/22 11:04 NESS,DIARRH EA Sulfa (Sulfonamide Allergy Intermediate HIVES Verified 07/12/22 11:04 Antibiotics) [SULFA(SULFONAMIDE ANTIBIOTICS)] Active Medications: Current Medications Acetaminophen (Acetaminophen 325 Mg Tablet) 325 mg PO ONCE PRN PRN Reason: Pain, Mild (Pain Scale 1-3) Norepinephrine Bitartrate (Levophed) 8 mg in 250 mls @ 0 mls/hr IVCONT .Q0M NICOLE; Protocol Last Admin: 07/26/22 18:58 Dose: 0.7 mcg/kg/min, 65.49 mls/hr Amiodarone HCl 900 mg/ Sodium (Chloride) 518 mls @ 34.533 mls/hr IVCONT .Q15H1M NICOLE; Protocol Last Admin: 07/26/22 19:02 Dose: 1 mg/min, 34.53 mls/hr Phenylephrine HCl 20 mg/ (Sodium Chloride) 252 mls @ 0 mls/hr IVCONT .Q0M NICOLE; Protocol Lactated Ringer's (Lr) 1,000 mls @ 999 mls/hr IV .Q1H1M NICOLE Stop: 07/26/22 20:30 Pharmacy Consult (Consult Rx Vancomycin Dosing) 1 each MISCELLANE DAILY PRN PRN Reason: Consult order Home Medications Medication Instructions Recorded Confirmed Last Taken Type modafinil 200 mg tablet 0.5 tab PO BID 07/26/22 07/26/22 Unknown History Physical Exam Vital Signs: Vital Signs: Last Vital Signs Temp 95.7 F L 07/26/22 19:00 Pulse 142 H 07/26/22 19:00 Resp 26 H 07/26/22 19:00 BP 83/59 L 07/26/22 19:00 Pulse Ox 99 07/26/22 19:00 O2 Del Method 07/26/22 19:00 O2 Flow Rate 3 07/26/22 19:00 BMI result Body Mass Index 17.2 ?General:? Alert oriented x3 no acute distress.? Slight lethargic. Following all commands. ?HEENT:? Head is normocephalic, atraumatic, pupils equal round reactive to light accommodation bilaterally.? Extraocular movements appear intact.? Buccal mucosa is dry, Neck is supple without lymphadenopathy. ?Cardiac:? Tachycardic to 120s.S1-S2, no murmurs rubs or gallops. ?Pulmonary:? Clear to auscultation, no wheezes, rales or rhonchi. ?Abdomen:? Positive bowel sounds in all 4 quadrants.? Soft, mild tenderness , no rebound or guarding.?? ?Musculoskeletal:? Moving all 4 extremities upon request a major joints, there is no crepitus or tenderness.? The strength is 5/5 bilaterally and throughout all 4 extremities.? Gait not assessed at this point. ?Neurologic:?cranial nerves 2-12 are grossly intact.? No focal deficits noted.Motor strength as above.?? ?Skin:?Skin cool to touch. no lesions, edema, erythema, clubbing or cyanosis Vascular:? 2+ pulses upper and lower extremities distally.? Results Labs CBC and Chem 7: 07/26/22 19:12 07/26/22 19:12 Labs: Laboratory Results - last 24 hr 07/26/22 07/26/22 07/26/22 11:33 17:48 19:11 VBG pH 7.39 VBG pCO2 33 VBG pO2 37 VBG HCO3 20 L VBG O2 Saturation 62.0 VBG Base Excess -3.6 Lactic Acid 4.9 H* COVID-19 (GISELL) Negative COVID-19 Clin Com See Note Assessment and Plan (1) Septic shock: Status: Resolved (2) Bilateral renal stones: Status: Acute (3) KRISTA (acute kidney injury): Status: Acute (4) Acute blood loss anemia: Status: Acute (5) Tachycardia: Status: Acute Plan 71-year-old woman with a past medical history of multiple sclerosis and? history of bilateral renal stones? with previous cystoscopy, lithotripsy? who presented today for elective bilateral retrograde ureteroscopy, laser lithotripsy and stone basketing post procedure hypotensive, showing? signs of septic shock? Neuro:? no acute issues Cardiac:? Septic shock,? severely hypotensive,? lactic elevated to 4.9.? source likely in nature. Received 2.5 L? of crystalloids.? Will add albumin.? ? On Levophed.? Will continue antibiotics.? Wean off pressors as appropriate ?Tachycardia-? patient sustained a heart rate in the 150s, Sinus tach. Started on? amiodarone drip Pulmonary:? ?No acute issues Renal:?? ?Bilateral? renal stones? status post elective cystoscopy, bilateral retrograde ureteroscopy, laser lithotripsy and stone basketing with? Dr. Majano. ? Cortes with gross hematuria now.? KRISTA- most likely related to hypoperfusion, nonoliguric.? 2.5 L.? Continue to check renal induces and urine output Endo:? No acute issues.?? ?GI: ? no acute issues Heme/Onc: ? acute blood loss anemia-? hemoglobin dropped to 6.5 after? OR. ? likely? from gross hematuria.? Will give 2 units of RBC. goal for hgb> 7? ID:? septic shock from source. Has hx of? Pseudomonas? bacteremia. Received vancomycin, levaquin and ceftriaxone in OR. And cefepime on arrival to ICU. Will continue abx Psych:? No acute issues Diet: NPO prophylaxis:? due to hematuria, ? compression boots, No GI prophylaxis at this time ? Critical care time:? X 90 minutes of critical care time ? Code? status: FULL code?? ? Case discussed with attending Dr Kasper Critical Care Time Critical Care Time (minutes): 90
[2022-07-26 19:46] LABS: Alanine Aminotransferase 12 U/L (0-31); Albumin Level 2.5 g/dL (3.5-5.0); Alkaline Phosphatase 80 U/L (39-117); Anion Gap 20 (12-20); Aspartate Amino Transferase 20 U/L (5-31); Bilirubin Total 0.4 mg/dL (0.0-1.0); Blood Urea Nitrogen 23 mg/dL (9-16); Calcium 7.3 mg/dL (8.4-10.2); Carbon Dioxide 20 mmol/L (22-29); Chloride 108 mmol/L (96-108); Creatinine Clr Calc Pharmacy 45.8; Estimated Glomerular Filt Rate > 60; Glucose Random 172 mg/dL (60-115); Potassium 3.2 mmol/L (3.3-5.1); Sodium 145 mmol/L (135-145); Total Protein 4.5 g/dL (6.5-8.0)
[2022-07-26 19:49] LABS: SLIDE REVIEW VERIFIED
[2022-07-26] MEDS: Phenylephrine HCL 20 MG in 0.9 % Sodium Chloride 250 ML 37.72 MG IVCONT (19:49)
[2022-07-26] MEDS: Lactated Ringers 1,000 ML 999 ML IV ×2 (19:50→20:02)
[2022-07-26] MEDS: Hydrocortisone Sod Succ/PF 100 MG VIAL IVPUSH (20:02)
[2022-07-26] MEDS: Lactated Ringers 500 ML 999 ML IV (20:03)
[2022-07-26 20:11] LABS: Reflex Lactate? Lactic Acid Added
[2022-07-26] MEDS: Albumin Human 25 % 100 ML IV ×2 (20:34→21:18)
[2022-07-26 20:39] LABS: ~Lactic Acid-LAB USE ONLY 7.1 mmol/L (0.5-2.0)
[2022-07-26] MEDS: Calcium Gluconate/NaCl,Iso-Osm 1 GM/50 ML PLAST..BAG IV (20:39)
[2022-07-26] MEDS: Potassium Chloride/H20 40 MEQ/100 ML PIGGYBACK 50 MEQ IV (20:41)
[2022-07-26 21:05] LABS: VBG Base Excess -9.4 mmol/L; VBG HCO3 16 mmol/L (22-26); VBG pCO2 32 mmHg; VBG pO2 41 mmHg
[2022-07-26] MEDS: Morphine Sulfate 2 MG/ML CARTRIDGE 1 MG IVPUSH (22:12)
[2022-07-26 22:21] LABS: Reflex Lactate? 2 Y
[2022-07-26 22:54] LABS: ~Lactic Acid-LAB USE ONLY 9.4 mmol/L (0.5-2.0)
[2022-07-26 23:01] LABS: Venous Blood Gas Refer to POC result
[2022-07-26 23:02] LABS: Venous Blood Gas Refer to POC result
[2022-07-27] VITALS (15 sets, daily range): BP systolic 103–143; BP diastolic 59–74; PULSE 89–107; RESP 20–29; TEMP 36.1–36.6; O2SAT 93–100
--- NOTE | 2022-07-27 | ECG_ITS ---
Test Reason : rhythmn change Blood Pressure : / mmHG Vent. Rate : 106 BPM Atrial Rate : 106 BPM P-R Int : 128 ms QRS Dur : 082 ms QT Int : 394 ms P-R-T Axes : 083 -43 087 degrees QTc Int : 523 ms Sinus tachycardia Left axis deviation Septal infarct , age undetermined ST & T wave abnormality, consider inferior ischemia ST depression, consider subendocardial injury Lateral leads Prolonged QT Abnormal ECG When compared with ECG of 09-NOV-2021 17:55, ST more depressed Inferior leads ST now depressed in Lateral leads Referred By: David Rogers Electronically Signed By:JOSE L HACKETT
[2022-07-27] MEDS: iohexoL 350 MG/ML 100 ML INFUS..BTL 85 ML IV (00:19)
[2022-07-27] MEDS: Scopolamine 1.5 MG PATCH.TD.3 EAR-BEHIND (00:32)
[2022-07-27] MEDS: fentaNYL citrate/PF 100 MCG/2 ML VIAL 50 MCG IVPUSH ×3 (01:24→04:49)
[2022-07-27] MEDS: Hydrocortisone Sod Succ/PF 100 MG VIAL IVPUSH (03:06)
[2022-07-27 05:27] LABS: VBG Base Excess -15.9 mmol/L; VBG HCO3 15 mmol/L (22-26); VBG pCO2 58 mmHg; VBG pO2 35 mmHg
[2022-07-27 05:28] LABS: Venous Blood Gas Refer to POC result
[2022-07-27 05:31] LABS: Basophils Percent Auto 0.4 % (0-2); Imm Gran Abs Auto 0.28 X10*3/uL (0.00-0.03); MANUAL DIFF FLAG SCAN; PLT CLUMP 1; Red Cell Distribution Width 16.9 % (11.0-16.0); SCAN SMEAR FLAG 1
[2022-07-27 05:33] LABS: Basophils Absolute Auto 0.1 X10*3/uL (0.0-0.2); Eosinophils Percent Auto 0.2 % (0-4); Hematocrit 34.5 % (37.0-47.0); Lymphocytes Absolute Auto 0.7 X10*3/uL (1.2-4.9); Mean Corpuscular HGB Conc 31.9 g/dl (31.0-35.0); Mean Corpuscular Hemoglobin 30.6 pg (27.0-33.0); Mean Corpuscular Volume 95.8 fL (80.0-98.0); Mean Platelet Volume 9.8 fL (9.4-12.3); Monocytes Absolute Auto 0.1 X10*3/uL (0.1-1.2); Monocytes Percent Auto 0.7 % (2-11); NRBC Pct Auto 0.2 /100WBC (0.0-0.2); Neutrophils Absolute Auto 12.7 x10*3/uL (2.0-8.3); Neutrophils Percent Auto 91.7 % (45-73)
[2022-07-27 05:38] LABS: White Blood Count 13.9 X10*3/uL (4.8-10.8)
[2022-07-27 05:39] LABS: Platelet Count 137 X10*3/uL (160-400)
[2022-07-27 05:59] LABS: Lactic Acid 10.3 mmol/L (0.5-2.0); Troponin-I High Sensitivity 131.7 ng/L (<3.5-17.0)
[2022-07-27 06:00] LABS: Alanine Aminotransferase 44 U/L (0-31); Albumin Level 3.1 g/dL (3.5-5.0); Alkaline Phosphatase 97 U/L (39-117); Anion Gap 24 (12-20); Aspartate Amino Transferase 119 U/L (5-31); Bilirubin Total 1.8 mg/dL (0.0-1.0); Blood Urea Nitrogen 27 mg/dL (9-16); Calcium 7.4 mg/dL (8.4-10.2); Carbon Dioxide 14 mmol/L (22-29); Chloride 113 mmol/L (96-108); Creatinine Clr Calc Pharmacy 35.2; Estimated Glomerular Filt Rate 48; Glucose Random 36 mg/dL (60-115); Magnesium 1.9 mg/dL (1.6-2.6); Phosphorus 5.4 mg/dL (2.7-4.5); Potassium 6.7 mmol/L (3.3-5.1); Sodium 144 mmol/L (135-145); Total Protein 4.7 g/dL (6.5-8.0)
[2022-07-27 06:31] LABS: SLIDE REVIEW VERIFIED
--- NOTE | 2022-07-27 06:42 | PM.CCN ---
Critical Care Event Note Summary Date of Service: 07/27/22 Code activated: Yes Narrative: This case had a high probability of a clinically significant, sudden, or life threatening deterioration of this patient's condition which required my full and direct attention, intervention and personal management. Critical Care Time (minutes): 60 Comment: At approximately 0500 patient Rhythm changed from tachycardia to sinus 80s. Patient alert and oriented at this time, labs? obtained at this time. Shortly after she dropped blood pressure and became altered. Earlier during the night I had goals of care discussion with the patient, in which she wanted to continue to be full code.? While getting ready to intubate an amp of bicarb given as well as an amp of epi, the patient became pulseless. CPR initiated and follow ACLS protocol, please see code sheet. Patient was PEA/Asystole cardiac arrest,? with return of spontaneous circulation x3. After approx 40 minutes of CPR, decided to stop life-saving measures.? ? On my exam- no response to verbal or physical stimuli, no spontaneous respiration, absent heart sounds, pupils are fixed and dilated, no corneal or gag reflex. Official time of 0556. Health care proxy/ [place] notified. Attending Dr Kasper notified. ME notified, declined. Case # [id number] ? Critical Care Time Critical Care Time (minutes): 60
--- NOTE | 2022-07-27 07:01 | PC.NURSE ---
Upon initial assessment at 1999- pt A&Ox4. Increasing vasopressor requirements- norepinephrine, phenylephrine, and vasopressin gtts ordered and titrated per dec. SUBSTATION MAINTENANCE TECHNICIAN aware of labs- given KCL 40 mEq IV, calcium gluconate 1 gm IV, 25% albumin IV x2 bottles, 1.5 L LR IV bolus, 2 units pRBC given. Cortes in place, minimal bloody output, SUBSTATION MAINTENANCE TECHNICIAN aware. Pt taken for abd/pelv CT at approx 2330, continuously nauseous and vomiting bile- scopolamine patch ordered by SUBSTATION MAINTENANCE TECHNICIAN. Pt c/o abd pain, new order for fentanyl 50 mcg IVP q2hr. At approx 0500- rhythm changed from sinus tach 110s to NSR 70-80s. Pt A&Ox4 initially, but becoming lethargic/altered, sallow appearing. Difficult to obtain SpO2 and BP. Pressors maxed. SUBSTATION MAINTENANCE TECHNICIAN notified and to bedside. Decision to intubate at approx 0515. While preparing to intubate, PEA on monitor- code blue initiated, see paper documentation. Time of , 0556. NEOB notified, declined. Family updated and on way in to see pt at this time, post mortem care to be done, oncoming shift made aware. ?
[2022-07-27 07:22] LABS: Reflex Lactate? Lactic Acid Added
--- NOTE | 2022-07-27 08:47 | PHA.MEDREC ---
Pharmacy Consult ? Medication Reconciliation Pharmacy has reviewed the medication reconciliation completed by Liliana. Carine Cintron, MelaniD
--- NOTE | 2022-07-27 11:47 | MHC.CM.PN ---
Pt prior to CM assessment
--- NOTE | 2022-07-27 15:49 | PM.DDS ---
Discharge Sum: Prov Provider Primary care physician: Unknown Physician Discharge Sum: Diag Contributing Factors (1) Cardiogenic shock: (2) Septic shock: (3) Bilateral renal stones: (4) KRISTA (acute kidney injury): (5) Acute blood loss anemia: (6) Multiple sclerosis: Discharge Sum: Summary Date and Time Date of admission: 07/26/22 18:50 Date of : 07/27/22 Time of : 05:56 Summary Details: 72-year-old lady with underlying history of multiple sclerosis, wheelchair-bound, neurogenic bladder, recurrent UTIs, bilateral renal stones, with prior Pseudomonas bacteremia with source admitted on 07/26/2022 after an elective cystoscopy, bilateral retrograde ureteroscopy, laser lithotripsy, and stone basketing with postoperative course complicated by development of rapidly progressing septic shock. Patient was transferred to intensive care unit from PACU on high-dose Levophed. Empiric broad-spectrum antibiotics were started, cultures and laboratory studies were obtained, central line was placed and patient required 3 vasopressors for hemodynamic support. Overnight her condition further worsened and around 05:00 in the morning and she suddenly developed a change in her cardiac rhythm with cardiogenic shock that rapidly deteriorated into PEA cardiac arrest. CPR was started immediately and continued for approximately 40 minutes, however it was futile and patient was pronounced dwad at 05:56a.m. Family was notified. Additional Data Confirmation of as documented by pronouncing clinician: no pulse, no respirations, no heart sounds and pupils fixed and dilated Family: contacted Attending physician: Flex Kasper MD Was code activated?: Yes medical claims examiner notified?: Yes Organ bank notified?: Yes
[2022-07-30 23:06] LABS: Stone Source KIDNEY STONE
== END 2022-07-27 11:52 | disposition expired | DRG 862 ==
LOC: HO.ICU 18:51
PROVIDERS: Anesthesiology; Nurse Practitioner; Registered Nurse Community Health; Urology; Admitting Provider Internal Medicine Pulmonary Disease; PCP Internal Medicine; Visit Provider Internal Medicine Pulmonary Disease
PROC: 0TC78ZZ Extirpation of Matter from Left Ureter, Via Natural or Artificial Opening Endoscopic (ICD-10-PCS; principal; 2022-07-26 11:20)
DX: T81.44XA Sepsis following a procedure, initial encounter (principal); A41.9 Sepsis, unspecified organism; T81.12XA Postprocedural septic shock, initial encounter; T81.11XA Postprocedural cardiogenic shock, initial encounter; I97.121 Postprocedural cardiac arrest following other surgery; D62 Acute posthemorrhagic anemia; N17.9 Acute kidney failure, unspecified; N20.0 Calculus of kidney; G35 Multiple sclerosis; N31.9 Neuromuscular dysfunction of bladder, unspecified; R31.9 Hematuria, unspecified; Z20.822 Contact with and (suspected) exposure to COVID-19; Z99.3 Dependence on wheelchair; Y83.8 Other surgical procedures as the cause of abnormal reaction of the patient, or of later complication, without mention of misadventure at the time of the procedure; Y92.234 Operating room of hospital as the place of occurrence of the external cause; Z87.440 Personal history of urinary (tract) infections; Z87.891 Personal history of nicotine dependence; Z88.0 Allergy status to penicillin; Z88.1 Allergy status to other antibiotic agents; Z88.2 Allergy status to sulfonamides; Z88.8 Allergy status to other drugs, medicaments and biological substances; Z79.899 Other long term (current) drug therapy
CPT/HCPCS: 36415; 71045; 74177; 80053; 82365; 82803; 83605; 83735; 84100; 84484; 85025; 86850; 86900; 86901; 86923; 87040; 87635; 88300; 93005; 94799; 99499; C1758; C1769; J0171; J0282; J0610; J0692; J0696; J1200; J2270; J2370; J2405; J2550; J3010; J3370; P9016; P9047; Q9967